=== PATIENT | female | born 1945 | race Caucasian/White ===

== ENCOUNTER 2020-06-13 10:11 | Outpatient (REF) | payer MEDICARE, SELFPAY ==
[2020-06-13 12:11] LABS: Alanine Aminotransferase 23 U/L (0-31); Albumin Level 4.3 g/dL (3.5-5.0); Alkaline Phosphatase 93 U/L (39-117); Anion Gap 13 (12-20); Aspartate Amino Transferase 21 U/L (5-31); Bilirubin Total 0.6 mg/dL (0.0-1.0); Blood Urea Nitrogen 20 mg/dL (9-16); Calcium 9.1 mg/dL (8.4-10.2); Carbon Dioxide 28 mmol/L (22-29); Chloride 103 mmol/L (96-108); Estimated Glomerular Filt Rate > 60; Glucose Random 85 mg/dL (60-115); Potassium 4.8 mmol/l (3.3-5.1); Sodium 139 mmol/L (135-145); Total Protein 7.3 g/dL (6.5-8.0)
== END 2020-06-13 10:12 | disposition home or self-care (01) ==
LOC: HO.LAB 10:11
PROVIDERS: PCP Internal Medicine; Visit Provider Internal Medicine
DX: E78.00 Pure hypercholesterolemia, unspecified (principal); M19.90 Unspecified osteoarthritis, unspecified site
CPT/HCPCS: 80053

== ENCOUNTER 2020-11-05 07:19 | Outpatient (REF) | payer MEDICARE, SELFPAY ==
[2020-11-05 10:33] LABS: MANUAL DIFF FLAG NO
[2020-11-05 10:36] LABS: Basophils Absolute Auto 0.1 X10*3/uL (0.0-0.2); Basophils Percent Auto 1.2 % (0-2); Eosinophils Absolute Auto 0.2 X10*3/uL (0.0-0.4); Eosinophils Percent Auto 3.4 % (0-4); Hematocrit 44.7 % (37-47); Hemoglobin 13.9 g/dl (12.0-16.0); Imm Gran Abs Auto 0.04 X10*3/uL (0.00-0.03); Imm Gran Pct Auto 0.6 % (0.0-0.4); Lymphocytes Absolute Auto 1.7 X10*3/uL (1.2-4.9); Lymphocytes Percent Auto 25.4 % (20-40); Mean Corpuscular HGB Conc 31.1 g/dl (31.0-35.0); Mean Corpuscular Hemoglobin 28.6 pg (27.0-33.0); Mean Platelet Volume 11.3 fL (9.4-12.3); Monocytes Absolute Auto 0.6 X10*3/uL (0.1-1.2); Monocytes Percent Auto 8.8 % (2-11); Neutrophils Absolute Auto 4.1 X10*3/uL (2.0-8.3); Neutrophils Percent Auto 60.6 % (45-73); Platelet Count 222 X10*3/uL (160-400); Red Blood Count 4.86 X10*6/uL (4.20-5.50); Red Cell Distribution Width 14.4 % (11.0-16.0); White Blood Count 6.7 X10*3/uL (4.8-10.8)
[2020-11-05 10:49] LABS: Glucose Urine UA NEG (NEG); Leukocyte Esterase Urine NEG (NEG); Nitrite Urine POS (NEG); UACC Culture Trigger YES; Urine Blood NEG (NEG); Urine Ketones NEG (NEG); Urine Protein NEG (NEG-TRACE)
[2020-11-05 10:51] LABS: Appearance Urine CLEAR; Color Urine YELLOW
[2020-11-05 11:05] LABS: RBC Urine 0 /HPF (0); Squamous Epithelial Cell Urine 1+ /LPF; UACC CULT YES
[2020-11-05 11:06] LABS: Bacteria Urine 3+ /LPF
[2020-11-05 11:38] LABS: Alanine Aminotransferase 26 U/L (0-31); Albumin Level 4.3 g/dL (3.5-5.0); Alkaline Phosphatase 85 U/L (39-117); Anion Gap 12 (12-20); Aspartate Amino Transferase 20 U/L (5-31); Bilirubin Total 0.4 mg/dL (0.0-1.0); Blood Urea Nitrogen 24 mg/dL (9-16); Carbon Dioxide 29 mmol/L (22-29); Chloride 104 mmol/L (96-108); Cholesterol 181 mg/dL; Estimated Glomerular Filt Rate > 60; Glucose Fasting 99 mg/dL (60-99); HDL Cholesterol 38 mg/dL; LDL Cholesterol Calculated 98 mg/dl; Potassium 4.4 mmol/L (3.3-5.1); Sodium 141 mmol/L (135-145); Total Protein 7.1 g/dL (6.5-8.0); Triglycerides 228 mg/dL
== END 2020-11-05 07:20 | disposition home or self-care (01) ==
LOC: HO.WFDLDS 07:19
PROVIDERS: PCP Internal Medicine; Visit Provider Internal Medicine
DX: K21.9 Gastro-esophageal reflux disease without esophagitis (principal); E78.00 Pure hypercholesterolemia, unspecified
CPT/HCPCS: 36415; 80053; 80061; 81001; 85025; 87086; 87088; 87186

== ENCOUNTER 2020-12-01 09:48 | Outpatient (REF) | payer MEDICARE, SELFPAY ==
[2020-12-01 10:43] LABS: Glucose Urine UA NEG (NEG); Leukocyte Esterase Urine 1+ (NEG); Nitrite Urine NEG (NEG); Specific Gravity - Urine <= 1.005 (1.005-1.025); UACC Culture Trigger YES; Urine Blood NEG (NEG); Urine Ketones NEG (NEG); Urine Protein NEG (NEG-TRACE)
[2020-12-01 10:44] LABS: Appearance Urine CLEAR; Color Urine YELLOW
[2020-12-01 10:53] LABS: Bacteria Urine 3+ /LPF; RBC Urine 0 /HPF (0); Squamous Epithelial Cell Urine TRACE /LPF; UACC CULT YES; WBC Urine 30-49 /HPF (0-4)
== END 2020-12-01 09:49 | disposition home or self-care (01) ==
LOC: HO.LAB 09:48
PROVIDERS: PCP Internal Medicine; Visit Provider Internal Medicine
DX: R30.0 Dysuria (principal)
CPT/HCPCS: 81001; 87086; 87088; 87186

== ENCOUNTER 2021-01-17 07:28 | Outpatient (REF) | payer MEDICARE, SELFPAY ==
--- NOTE | ~2021-01-17 | MM_ITS ---
EXAMINATION: MM SCREENING DIGITAL BREAST TOMOSYNTHESIS, BILATERAL CLINICAL INFORMATION: Screening. Asymptomatic. The lifetime risk of breast cancer based on the Tyrer-Cuzick Model is 3%. COMPARISON: Mammography: 10/26/2019, 10/18/2018, 10/15/2017 TECHNIQUE: Digital breast tomosynthesis is performed in both the craniocaudal and mediolateral oblique views along with computer-aided detection (CAD). Synthesized 2D images are generated from the tomosynthesis. FINDINGS: The breasts are heterogeneously dense, which may obscure small masses (ACR BI-RADS breast composition Category c). Parenchymal pattern is similar to prior studies. There is no developing density or interval mass or architectural abnormality. Again, there is biopsy clip marker central right breast and stable benign grouped calcifications right breast mid upper outer quadrant. Other scattered benign round and rim and dermal calcifications are again seen in both breasts. The axilla and skin contours are unremarkable. No significant changes from prior exams. MM/MM tomosynthesis screening BI IMPRESSION: No mammographic evidence of malignancy. ASSESSMENT: BI-RADS 2: Benign RECOMMENDATION: Routine annual mammography screening. This patient's information was entered into a reminder system with a target due date for their next mammogram.
== END 2021-01-17 07:29 | disposition home or self-care (01) ==
LOC: HO.MAMMO 07:28
PROVIDERS: PCP Internal Medicine; Visit Provider Internal Medicine
DX: Z12.31 Encounter for screening mammogram for malignant neoplasm of breast (principal)
CPT/HCPCS: 77063; 77067

== ENCOUNTER 2021-02-18 10:59 | Outpatient (REF) | payer MEDICARE, SELFPAY ==
[2021-02-18 14:00] LABS: Glucose Urine UA NEG (NEG); Leukocyte Esterase Urine 1+ (NEG); Nitrite Urine NEG (NEG); PH 6.5 (5.0-8.0); Specific Gravity - Urine <= 1.005 (1.005-1.025); UACC Culture Trigger YES; Urine Blood NEG (NEG); Urine Ketones NEG (NEG); Urine Protein NEG (NEG-TRACE)
[2021-02-18 14:03] LABS: Appearance Urine CLEAR; Color Urine STRAW
[2021-02-18 14:13] LABS: Bacteria Urine TRACE /LPF; RBC Urine 0 /HPF (0)
== END 2021-02-18 11:00 | disposition home or self-care (01) ==
LOC: HO.WFDLDS 10:59
PROVIDERS: PCP Internal Medicine; Visit Provider Internal Medicine
DX: R30.0 Dysuria (principal)
CPT/HCPCS: 81001; 81003; 87086; 87088; 87186

== ENCOUNTER 2021-05-09 09:48 | Outpatient (REF) | payer MEDICARE, SELFPAY ==
[2021-05-09 10:18] LABS: MANUAL DIFF FLAG NO
[2021-05-09 10:21] LABS: Basophils Absolute Auto 0.1 X10*3/uL (0.0-0.2); Basophils Percent Auto 0.9 % (0-2); Eosinophils Absolute Auto 0.2 X10*3/uL (0.0-0.4); Eosinophils Percent Auto 3.1 % (0-4); Hematocrit 42.2 % (37-47); Hemoglobin 13.8 g/dl (12.0-16.0); Imm Gran Abs Auto 0.02 X10*3/uL (0.00-0.03); Imm Gran Pct Auto 0.3 % (0.0-0.4); Lymphocytes Absolute Auto 1.7 X10*3/uL (1.2-4.9); Lymphocytes Percent Auto 24.6 % (20-40); Mean Corpuscular HGB Conc 32.7 g/dl (31.0-35.0); Mean Corpuscular Hemoglobin 29.1 pg (27.0-33.0); Mean Corpuscular Volume 88.8 fL (80-98); Mean Platelet Volume 10.4 fL (9.4-12.3); Monocytes Absolute Auto 0.6 X10*3/uL (0.1-1.2); Monocytes Percent Auto 8.2 % (2-11); Neutrophils Absolute Auto 4.2 X10*3/uL (2.0-8.3); Neutrophils Percent Auto 62.9 % (45-73); Platelet Count 262 X10*3/uL (160-400); Red Blood Count 4.75 X10*6/uL (4.20-5.50); Red Cell Distribution Width 14.1 % (11.0-16.0); White Blood Count 6.7 X10*3/uL (4.8-10.8)
[2021-05-09 10:45] LABS: Alanine Aminotransferase 25 U/L (0-31); Albumin Level 4.3 g/dL (3.5-5.0); Alkaline Phosphatase 86 U/L (39-117); Anion Gap 12 (12-20); Aspartate Amino Transferase 23 U/L (5-31); Bilirubin Total 0.4 mg/dL (0.0-1.0); Blood Urea Nitrogen 17 mg/dL (9-16); Calcium 9.6 mg/dL (8.4-10.2); Carbon Dioxide 27 mmol/L (22-29); Chloride 103 mmol/L (96-108); Estimated Glomerular Filt Rate > 60; Glucose Fasting 100 mg/dL (60-99); Potassium 4.7 mmol/L (3.3-5.1); Sodium 137 mmol/L (135-145)
[2021-05-09 11:07] LABS: Free T4 (Free Thyroxine) 0.82 ng/dL (0.71-1.85); Thyroid Stimulating Hormone 2.02 uIU/mL (0.32-4.0)
[2021-05-09 11:09] LABS: Vitamin B12 787 pg/mL (200-900)
== END 2021-05-09 09:49 | disposition home or self-care (01) ==
LOC: HO.10HDL 09:48
PROVIDERS: Visit Provider Internal Medicine
DX: R53.83 Other fatigue (principal); I10 Essential (primary) hypertension; K21.9 Gastro-esophageal reflux disease without esophagitis
CPT/HCPCS: 36415; 80053; 82607; 84439; 84443; 85025

== ENCOUNTER 2021-10-11 07:52 | Outpatient (REF) | payer MEDICARE, SELFPAY ==
[2021-10-11 10:31] LABS: MANUAL DIFF FLAG NO
[2021-10-11 11:15] LABS: Basophils Absolute Auto 0.1 X10*3/uL (0.0-0.2); Basophils Percent Auto 0.8 % (0-2); Eosinophils Absolute Auto 0.3 X10*3/uL (0.0-0.4); Eosinophils Percent Auto 4.9 % (0-4); Hematocrit 42.5 % (37.0-47.0); Hemoglobin 13.6 g/dl (12.0-16.0); Imm Gran Abs Auto 0.04 X10*3/uL (0.00-0.03); Imm Gran Pct Auto 0.7 % (0.0-0.4); Lymphocytes Absolute Auto 1.6 X10*3/uL (1.2-4.9); Lymphocytes Percent Auto 26.5 % (20-40); Mean Corpuscular Hemoglobin 29.1 pg (27.0-33.0); Mean Corpuscular Volume 90.8 fL (80.0-98.0); Mean Platelet Volume 11.1 fL (9.4-12.3); Monocytes Absolute Auto 0.6 X10*3/uL (0.1-1.2); Monocytes Percent Auto 10.4 % (2-11); Neutrophils Absolute Auto 3.5 x10*3/uL (2.0-8.3); Neutrophils Percent Auto 56.7 % (45-73); Platelet Count 252 X10*3/uL (160-400); Red Blood Count 4.68 X10*6/uL (4.20-5.50); Red Cell Distribution Width 14.4 % (11.0-16.0); White Blood Count 6.1 X10*3/uL (4.8-10.8)
[2021-10-11 11:30] LABS: Appearance Urine CLEAR; Color Urine YELLOW; Glucose Urine UA NEG (NEG); Leukocyte Esterase Urine 2+ (NEG); Nitrite Urine NEG (NEG); Specific Gravity - Urine 1.015 (1.005-1.025); Urine Blood NEG (NEG); Urine Ketones NEG (NEG); Urine Protein NEG (NEG-TRACE)
[2021-10-11 11:33] LABS: Alanine Aminotransferase 22 U/L (0-31); Albumin Level 4.2 g/dL (3.5-5.0); Alkaline Phosphatase 81 U/L (39-117); Anion Gap 12 (12-20); Aspartate Amino Transferase 22 U/L (5-31); Bilirubin Total 0.5 mg/dL (0.0-1.0); Blood Urea Nitrogen 21 mg/dL (9-16); Calcium 9.4 mg/dL (8.4-10.2); Carbon Dioxide 27 mmol/L (22-29); Chloride 102 mmol/L (96-108); Cholesterol 174 mg/dL; Estimated Glomerular Filt Rate > 60; Glucose Fasting 97 mg/dL (60-99); HDL Cholesterol 39 mg/dL; LDL Cholesterol Calculated 101 mg/dl; Potassium 4.2 mmol/L (3.3-5.1); Sodium 137 mmol/L (135-145); Total Protein 7.3 g/dL (6.5-8.0); Triglycerides 170 mg/dL
[2021-10-11 11:56] LABS: RBC Urine 0 /HPF (0); Squamous Epithelial Cell Urine 1+ /LPF
== END 2021-10-11 07:53 | disposition home or self-care (01) ==
LOC: HO.WFDLDS 07:52
PROVIDERS: Visit Provider Internal Medicine
DX: Z00.00 Encounter for general adult medical examination without abnormal findings (principal); E78.00 Pure hypercholesterolemia, unspecified
CPT/HCPCS: 36415; 80053; 80061; 81001; 85025

== ENCOUNTER 2021-11-16 07:14 | Outpatient (REF) | payer MEDICARE, SELFPAY ==
--- NOTE | ~2021-11-16 | XR_ITS ---
EXAMINATION: XR CLAVICLE, RIGHT CLINICAL INFORMATION: Prominent right clavicle. Rule out osteoarthritis. COMPARISON: None TECHNIQUE: 2 of the right clavicle. FINDINGS: Bone alignment is normal. No fracture or dislocation is seen. There is arthritis at the right acromioclavicular joint with bony osteophytes. There is adjacent soft tissue swelling. XR/XR clavicle RT IMPRESSION: Arthritis at the right acromioclavicular joint.
== END 2021-11-16 07:15 | disposition home or self-care (01) ==
LOC: HO.XRAY 07:14
PROVIDERS: PCP Internal Medicine; Visit Provider Internal Medicine
DX: M13.811 Other specified arthritis, right shoulder (principal)
CPT/HCPCS: 73000

== ENCOUNTER 2021-12-12 11:41 | Outpatient (REF) | payer MEDICARE, SELFPAY ==
--- NOTE | ~2021-12-12 | XR_ITS ---
EXAMINATION: XR SINUSES CLINICAL INFORMATION: Congestion COMPARISON: None TECHNIQUE: 3 views of the sinuses were obtained. FINDINGS: Paranasal sinuses appear clear without air-fluid levels or soft tissue opacification. Bony structures are normal. XR/XR sinus min 3V IMPRESSION: Unremarkable examination.
== END 2021-12-12 11:42 | disposition home or self-care (01) ==
LOC: HO.XRAY 11:41
PROVIDERS: PCP Internal Medicine; Visit Provider Allergy & Immunology
DX: R09.81 Nasal congestion (principal)
CPT/HCPCS: 70220

== ENCOUNTER 2022-01-30 10:16 | Outpatient (REF) | payer MEDICARE, SELFPAY ==
--- NOTE | ~2022-01-30 | MM_ITS ---
EXAMINATION: MM SCREENING DIGITAL BREAST TOMOSYNTHESIS, BILATERAL CLINICAL INFORMATION: Screening. Asymptomatic. The lifetime risk of breast cancer based on the Tyrer-Cuzick Model is 3%. COMPARISON: Mammography: 01/17/2021, 10/26/2019, 10/18/2018, 10/15/2017, 09/23/2016 TECHNIQUE: Digital breast tomosynthesis is performed in both the craniocaudal and mediolateral oblique views along with computer-aided detection (CAD). Synthesized 2D images are generated from the tomosynthesis. FINDINGS: The breasts are heterogeneously dense, which may obscure small masses (ACR BI-RADS breast composition Category c). Parenchymal pattern is similar to prior studies and there is no developing density or architectural abnormality. There is no significant mass or interval abnormal calcifications. Again, there is biopsy clip marker central posterior right breast. Grouped coarse probable fibroadenomatous calcifications are again noted posterior upper outer right breast without significant change since 2019. There are other bilateral scattered benign round and dermal calcifications. The axilla and skin contours are unremarkable. MM/MM tomosynthesis screening BI IMPRESSION: No significant changes from prior exams. ASSESSMENT: BI-RADS 2: Benign RECOMMENDATION: Routine annual mammography screening. This patient's information was entered into a reminder system with a target due date for their next mammogram.
== END 2022-01-30 10:17 | disposition home or self-care (01) ==
LOC: HO.MAMMO 10:16
PROVIDERS: PCP Internal Medicine; Visit Provider Internal Medicine
DX: Z12.31 Encounter for screening mammogram for malignant neoplasm of breast (principal)
CPT/HCPCS: 77063; 77067

== ENCOUNTER 2022-04-02 14:53 | Outpatient (REF) | payer MEDICARE, SELFPAY ==
[2022-04-02 15:52] LABS: Estimated Average Glucose 105 mg/dL; Hemoglobin A1c % 5.3 %
[2022-04-02 16:00] LABS: Anion Gap 14 (12-20); Blood Urea Nitrogen 26 mg/dL (9-16); Calcium 9.1 mg/dL (8.4-10.2); Carbon Dioxide 25 mmol/L (22-29); Chloride 99 mmol/L (96-108); Estimated Glomerular Filt Rate 60; Glucose Random 109 mg/dL (60-115); Potassium 4.3 mmol/L (3.3-5.1); Sodium 134 mmol/L (135-145)
== END 2022-04-02 14:54 | disposition home or self-care (01) ==
LOC: HO.LAB 14:53
PROVIDERS: PCP Internal Medicine; Visit Provider Internal Medicine
DX: R73.03 Prediabetes (principal)
CPT/HCPCS: 36415; 80048; 83036

== ENCOUNTER 2022-11-03 07:15 | Outpatient (REF) | payer MEDICARE, SELFPAY ==
[2022-11-03 11:23] LABS: MANUAL DIFF FLAG NO
[2022-11-03 11:30] LABS: Basophils Absolute Auto 0.1 X10*3/uL (0.0-0.2); Basophils Percent Auto 0.9 % (0-2); Eosinophils Absolute Auto 0.3 X10*3/uL (0.0-0.4); Eosinophils Percent Auto 3.9 % (0-4); Hematocrit 43.3 % (37.0-47.0); Imm Gran Abs Auto 0.03 X10*3/uL (0.00-0.03); Imm Gran Pct Auto 0.5 % (0.0-0.4); Lymphocytes Absolute Auto 1.9 X10*3/uL (1.2-4.9); Lymphocytes Percent Auto 29.2 % (20-40); Mean Corpuscular HGB Conc 32.3 g/dl (31.0-35.0); Mean Corpuscular Hemoglobin 29.6 pg (27.0-33.0); Mean Corpuscular Volume 91.5 fL (80.0-98.0); Mean Platelet Volume 11.2 fL (9.4-12.3); Monocytes Absolute Auto 0.6 X10*3/uL (0.1-1.2); Monocytes Percent Auto 9.4 % (2-11); Neutrophils Absolute Auto 3.7 x10*3/uL (2.0-8.3); Neutrophils Percent Auto 56.1 % (45-73); Platelet Count 236 X10*3/uL (160-400); Red Blood Count 4.73 X10*6/uL (4.20-5.50); Red Cell Distribution Width 14.2 % (11.0-16.0); White Blood Count 6.6 X10*3/uL (4.8-10.8)
[2022-11-03 12:03] LABS: Alanine Aminotransferase 29 U/L (0-31); Albumin Level 4.1 g/dL (3.5-5.0); Alkaline Phosphatase 75 U/L (39-117); Anion Gap 14 (12-20); Aspartate Amino Transferase 23 U/L (5-31); Bilirubin Total 0.6 mg/dL (0.0-1.0); Blood Urea Nitrogen 25 mg/dL (9-16); Calcium 9.4 mg/dL (8.4-10.2); Carbon Dioxide 25 mmol/L (22-29); Chloride 104 mmol/L (96-108); Cholesterol 178 mg/dL; Estimated Glomerular Filt Rate > 60; Glucose Fasting 96 mg/dL (60-99); HDL Cholesterol 41 mg/dL; LDL Cholesterol Calculated 111 mg/dl; Potassium 4.3 mmol/L (3.3-5.1); Sodium 139 mmol/L (135-145); Total Protein 6.6 g/dL (6.5-8.0); Triglycerides 133 mg/dL
== END 2022-11-03 07:16 | disposition home or self-care (01) ==
LOC: HO.WFDLDS 07:15
PROVIDERS: Visit Provider Internal Medicine
DX: Z00.00 Encounter for general adult medical examination without abnormal findings (principal); E78.00 Pure hypercholesterolemia, unspecified
CPT/HCPCS: 36415; 80053; 80061; 85025

== ENCOUNTER 2023-02-05 10:23 | Outpatient (REF) | payer MEDICARE, SELFPAY ==
--- NOTE | ~2023-02-05 | MM_ITS ---
EXAMINATION: MM SCREENING DIGITAL BREAST TOMOSYNTHESIS, BILATERAL CLINICAL INFORMATION: Screening. Asymptomatic. The lifetime risk of breast cancer based on the Tyrer-Cuzick Model is under 5%. COMPARISON: Multiple prior mammography exams including most recent 02/17/2022. TECHNIQUE: Digital breast tomosynthesis is performed in both the craniocaudal and mediolateral oblique views along with computer-aided detection (CAD). Synthesized 2D images are generated from the tomosynthesis. FINDINGS: The breasts are heterogeneously dense, which may obscure small masses (ACR BI-RADS breast composition Category c). There are scattered bilateral benign round and rim calcifications. Grouped benign calcifications again seen mid upper outer right breast likely fibroadenomatous change. There is a biopsy clip marker posterior central right breast. The axilla and skin contours are unremarkable. Left breast parenchymal pattern is similar to prior exams and there is no developing density or significant mass or architectural abnormality. Right breast has subtle regional increased parenchymal density anterior periareolar 12:00 area likely incompletely compressed glandular tissue. No architectural abnormality. Patient will be recalled for additional imaging to fully characterize. MM/MM tomosynthesis screening BI IMPRESSION: Right: -Subtle regional increased parenchymal attenuation anterior periareolar area, likely incompletely compressed glandular tissue. Left: -No mammographic evidence of malignancy. ASSESSMENT: BI-RADS 0: Incomplete - Need Additional Imaging Evaluation RECOMMENDATION: 1. Additional views right breast (spot CC, spot MLO, spot ML). 2. Targeted ultrasound if warranted after review of the additional views. 3. Radiology department staff will contact the patient for additional imaging. This patient's information was entered into a reminder system with a target due date for their next mammogram.
== END 2023-02-05 10:24 | disposition home or self-care (01) ==
LOC: HO.MAMMO 10:23
PROVIDERS: PCP Internal Medicine; Visit Provider Internal Medicine
DX: Z12.31 Encounter for screening mammogram for malignant neoplasm of breast (principal)
CPT/HCPCS: 77063; 77067

== ENCOUNTER 2023-07-02 08:40 | Outpatient (REF) | payer MEDICARE, SELFPAY ==
--- NOTE | ~2023-07-02 | MM_ITS ---
EXAMINATION: BONE DENSITOMETRY CLINICAL INDICATION: Postmenopausal. COMPARISON: Previous BD dated 05/11/2014 and baseline BD dated 04/18/2010. TECHNIQUE: Using a [employer] DXA System (software version: 13.1) manufactured by [employer], dual-energy x-ray absorptiometry was performed of the lumbar spine and left hip. The images are of good technical quality. Summary results are attached. FINDINGS: LEFT FEMUR, NECK: Current: BMD 0.921 g/cm2, Z-score 0.9, T-score -0.8, normal. Prior: BMD 0.976 g/cm2. Baseline: BMD 1.019 g/cm2. LEFT FEMUR, TOTAL: Current: BMD 0.900 g/cm2, Z-score 0.7, T-score -0.9, normal, 10.9% decrease from previous, 16.9% decrease from baseline (<5% change is not significant). Prior: BMD 1.010 g/cm2. Baseline: BMD 1.083 g/cm2. AP SPINE L1-L3 (excluding L4): The data of L1-L4 has been changed to exclude the L4 vertebral body, because degenerative sclerosis at this level may cause overestimation of lumbar spine density. Current: BMD 1.208 g/cm2, Z-score 1.7, T-score 0.3, normal, 5.6% increase from previous, 14.6% increase from baseline (<5% change is not significant). Prior: BMD 1.144 g/cm2. Baseline: BMD 1.054 g/cm2. IDENTIFIED RISK FACTORS: Height loss, menopause. HISTORY OF FRACTURE: None listed. MEDICATIONS: Calcium supplements or multivitamin, vitamin D. MM/XR DEXA axial skeleton IMPRESSION: 1. DIAGNOSIS: Normal bone density based on the lowest T-score value of 0.9 in the total femur applying World Health Organization criteria. 2. 10-YEAR FRACTURE RISK PREDICTION, FRAX: According to the guidelines, FRAX calculation should only be performed on patients in the osteopenia bone density category. Therefore, FRAX was not performed on this patient. 3. Treatment Recommendations: NOF guidelines recommend consideration for treatment in postmenopausal women and men age 50 and older presenting with the following: -A hip or vertebral (clinical or morphometric) fracture. -T-score less than or equal to -2.5 at the femoral neck or spine after appropriate evaluation to exclude secondary causes. -Low bone mass at the hip or spine and a 10-year fracture probability by FRAX of greater than or equal to 3% for hip fracture or greater than or equal to 20% for major osteoporotic fracture based on the [place] adapted WHO algorithm. 4. Other Recommendations: All treatment decisions require clinical judgment and consideration of individual patient factors, including patient preferences, comorbidities, previous drug use, risk factors not captured in the FRAX model (e.g. frailty, falls, vitamin D deficiency, increased bone turnover, interval significant decline in bone density) and possible under or overestimation of fracture risk by FRAX. FUTURE SCAN RECOMMENDATION: People with diagnosed cases of osteoporosis or at high risk for fracture should have regular bone mineral density tests. For patients eligible for Medicare, routine testing is allowed once every 2 years. The testing frequency can be increased to one year for patients who have rapidly progressing disease, those who are receiving or discontinuing medical therapy to restore bone mass, or have additional risk factors.
== END 2023-07-02 08:41 | disposition home or self-care (01) ==
LOC: HO.MAMMO 08:40
PROVIDERS: PCP Internal Medicine; Visit Provider Internal Medicine
DX: Z13.820 Encounter for screening for osteoporosis (principal); Z78.0 Asymptomatic menopausal state
CPT/HCPCS: 77080

== ENCOUNTER 2023-11-17 07:20 | Outpatient (REF) | payer MEDICARE, SELFPAY ==
[2023-11-17 11:19] LABS: MANUAL DIFF FLAG NO
[2023-11-17 11:33] LABS: Basophils Absolute Auto 0.1 X10*3/uL (0.0-0.2); Basophils Percent Auto 0.7 % (0-2); Eosinophils Absolute Auto 0.2 X10*3/uL (0.0-0.4); Eosinophils Percent Auto 2.9 % (0-4); Hematocrit 43.4 % (37.0-47.0); Hemoglobin 13.9 g/dl (12.0-16.0); Imm Gran Abs Auto 0.03 X10*3/uL (0.00-0.03); Imm Gran Pct Auto 0.4 % (0.0-0.4); Lymphocytes Absolute Auto 1.3 X10*3/uL (1.2-4.9); Lymphocytes Percent Auto 18.4 % (20-40); Mean Corpuscular Hemoglobin 28.8 pg (27.0-33.0); Mean Platelet Volume 11.1 fL (9.4-12.3); Monocytes Absolute Auto 0.6 X10*3/uL (0.1-1.2); Monocytes Percent Auto 8.9 % (2-11); Neutrophils Absolute Auto 4.8 x10*3/uL (2.0-8.3); Neutrophils Percent Auto 68.7 % (45-73); Platelet Count 238 X10*3/uL (160-400); Red Blood Count 4.82 X10*6/uL (4.20-5.50)
[2023-11-17 12:32] LABS: Alanine Aminotransferase 17 U/L (0-31); Albumin Level 4.1 g/dL (3.5-5.0); Alkaline Phosphatase 84 U/L (39-117); Anion Gap 13 (12-20); Aspartate Amino Transferase 18 U/L (5-31); Bilirubin Total 0.4 mg/dL (0.0-1.0); Blood Urea Nitrogen 21 mg/dL (9-16); Calcium 9.1 mg/dL (8.4-10.2); Carbon Dioxide 26 mmol/L (22-29); Chloride 101 mmol/L (96-108); Cholesterol 144 mg/dL (<200); Estimated Glomerular Filt Rate > 60; Glucose Fasting 85 mg/dL (60-99); HDL Cholesterol 42 mg/dL (>40); LDL Cholesterol Calculated 80 mg/dL (<100); Potassium 4.4 mmol/L (3.3-5.1); Sodium 136 mmol/L (135-145); Total Protein 7.3 g/dL (6.5-8.0); Triglycerides 112 mg/dL (<150)
== END 2023-11-17 07:21 | disposition home or self-care (01) ==
LOC: HO.WFDLDS 07:20
PROVIDERS: Visit Provider Internal Medicine
DX: Z00.00 Encounter for general adult medical examination without abnormal findings (principal); E78.00 Pure hypercholesterolemia, unspecified; K21.9 Gastro-esophageal reflux disease without esophagitis
CPT/HCPCS: 36415; 80053; 80061; 85025

== ENCOUNTER → 2024-02-11 08:00 | Outpatient (BNV) | payer MEDICARE, SELFPAY | PROVIDERS: PCP Internal Medicine; Visit Provider Radiology Diagnostic Radiology | DX: Z12.31 Encounter for screening mammogram for malignant neoplasm of breast (principal) | CPT/HCPCS: 77063; 77067 ==

== ENCOUNTER 2024-02-11 08:01 | Outpatient (REF) | payer MEDICARE, SELFPAY ==
--- NOTE | ~2024-02-11 | MM_ITS ---
EXAMINATION: MM DIAGNOSTIC DIGITAL BREAST TOMOSYNTHESIS, BILATERAL CLINICAL INFORMATION: Patient here for bilateral screening. Patient did not return for a call back from 02/05/2023 requesting diagnostic views of the right breast. COMPARISON: Mammography: 02/05/2023, 01/30/2022, 01/17/2021, 10/26/2019, 10/18/2018, 10/15/2017, 09/23/2016. TECHNIQUE: Digital breast tomosynthesis is performed in both the craniocaudal and mediolateral oblique views along with computer-aided detection (CAD). Synthesized 2D images are generated from the tomosynthesis. FINDINGS: The breasts are heterogeneously dense, which may obscure small masses (ACR BI-RADS breast composition Category c). Redemonstration of bilateral skin and benign type calcifications. Stable group of benign calcifications upper outer right breast mid to posterior one third. Post benign biopsy clip is present in the central right breast along the nipple line, posterior one third. Area of previous concern in the retroareolar right breast is again noted, similar on the cc view, however not persisting on today's examination on the MLO view. Tomographic images demonstrate this has the appearance of overlapping normal fibroglandular tissues. In retrospect, this area is unchanged dating back to 2017. This area is benign and further follow-up is not warranted. There is no suspicious mass, suspicious microcalcifications, or developing architectural distortion in either breast. The parenchymal pattern is unchanged from prior exams. No skin or axillary abnormalities. MM/MM tomosynthesis diagnostic BI IMPRESSION: -No findings suspicious for malignancy in either breast. There has been no interval change in the study. -Stable benign findings as described. ASSESSMENT: BI-RADS BI-RADS 2 - Benign Findings RECOMMENDATION: 1 year F/U Results were provided to the patient at time of visit by the technologist. This patient's information was entered into a reminder system with a target due date for their next mammogram.
== END 2024-02-11 08:02 | disposition home or self-care (01) ==
LOC: HO.MAMMO 08:01
PROVIDERS: PCP Internal Medicine; Visit Provider Internal Medicine
DX: R92.2 Inconclusive mammogram (principal)
CPT/HCPCS: 77062; 77066

== ENCOUNTER 2024-10-31 08:02 | Outpatient (REF) | payer MEDICARE, SELFPAY ==
--- OUTSIDE RECORDS SUMMARY | 2024-10-31 08:10 | XMS_ITS ---
Author Organization [facility] Address [address] [place] [address] Care Team Providers Care Set Builder Name Role Phone Jose LEE, Vincent Primary Care Provider Unavaila Polo Parker Unavailable [phone] Acharya Encounters Encounter Location Date Provider Diagnosis [address] [address] 01/21/2024 Polo Banda Plan Of Treatment Next Appt Details Provider Name:Polo Banda , 11/14/2024 11:00:00 AM, [address] [place] [address], [phone], Progress Notes * Lili TINSLEYite PDOB:[birth year] (79 yo F)Acc No.[id number]:01/21/2024 Progress Note Patient:?Roselia TINSLEY Provider:?Polo Banda DPM :1945???Age:78 Y???Sex:Female D ate:01/21/2024 Address:[address] [place] [phone] Pcp:Vincent Garcia MD Subjective: * Chief Complaints: * ???1. Dr. Acharya. * Medical History:? Objective: * Vitals:? Assessment: Plan: * Treatment: * Images: * The named appointment provid er may or may not be the originator of this progress note, and it is not deemed complete until electronically signed by the appointment provider. Sign off status: Pending * Provider:Michael Banda DPM Date:?2023 Generated for Tisha head/Jag/Nancy on:?10/31/2024 08:09 AM EST
--- OUTSIDE RECORDS SUMMARY | 2024-10-31 08:10 | XMS_ITS | Encounter Summary ---
Author Organization [facility] Address [address] [place] [address] Care Team Providers Care Mushroom Cultivator Name Role Phone Vincent Garcia MD Primary Care Provider [phone] Encounter Details Date Type Department Care Team (Late st Contact Info) Description 08/16/2024 Lab Requisition [facility] - Main Lab [address] [facility] [place] [address] Tere Ambriz NP [address] [facility] [address] [place] [address] Dysuria Social History Tobacco Use Types Packs/Day Years Used Date Smoking Tobacco: Never Smokeless Tobacco: Never Comments Unknown Sex and Gender Information Value Date Recorded Sex Assigned at Not on file Legal Sex Female 1:01 AM EST Gender Identity Not on file Sexual Orientation Not on file documented as of this encounter Plan of Treatment Not on file documented as of this encounter Procedures Procedure Name Priority Date/Time Associated Diagnosis Comments BACTERIAL IDENTIFICATION AND SUSCEPTIBILITY, AEROBIC Routine 08/15/2024 12:00 AM EST Dysuria documented in this encounter Results * (ABNORMAL) Bacterial identification and susceptibility, aerobic (08/15/2024 12:00 AM EST) Culture, Bacterial ID and Sensitivity Enterobacter cloacae complex(A) SARA 08/17/2024 10:29 AM EST [facility] Comment: This is an edited result. Previous organism was Gram negative bacilli on 08/16/2024 at 1032 EST. Culture, Bacterial ID and Sensitivity Corynebacterium species(A) SARA 08/17/2024 10:29 AM EST [facility] Comment: The organism value for this result has been updated. These results have been appended to the previously preliminary verified report. Other Urine specimen from urethra / Unknown 08/15/2024 08/16/2024 9:33 AM EST Narrative Organism Antibiotic Method Susceptibility Enterobacter cloacae complex Amoxicillin/Clavulanate SARA >=32 ug/ml: Resistant Enterobacter cloacae complex Cefoxitin SARA >=64 ug/ml: Resistant Enterobacter cloacae complex Ceftazidime SARA <=0.5 ug/ml: Susceptible Enterobacter cloacae complex Cefepime SARA <=0.12 ug/ml: Susceptible Enterobacter cloacae complex Meropenem SARA <=0.25 ug/ml: Susceptible Enterobacter cloacae complex Amikacin SARA <=1 ug/ml: Susceptible Enterobacter cloacae complex Gentamicin SARA <=1 ug/ml: Susceptible Enterobacter cloacae complex Ciprofloxacin SARA <=0.06 ug/ml: Susceptible Enterobacter cloacae complex Levofloxacin SARA <=0.12 ug/ml: Susceptible Enterobacter cloacae complex Nitrofurantoin SARA 64 ug/ml: Intermediate Enterobacter cloacae complex Trimethoprim/Sulfamethoxazo le SARA <=20 ug/ml: Susceptible us Tere Ambriz [facility] MICROBIOLOGY - GENERA L ORDERABLES Final Result [facility] [address] [place] [address], documented in this encounter Visit Diagnoses Diagnosis Dysuria documented in this encounter Care Teams Mushroom Cultivator Relationship Specialty Start Date End Date Vincent Garcia MD [address] [place] [address] Dr Sweetie [place] PCP - General Internal Medicine 12/13/18 documented as of this encounter
--- OUTSIDE RECORDS SUMMARY | 2024-10-31 08:10 | XMS_ITS | Clinical Summary ---
Author Organization [address] [facility] Address [address] [place] [address] Phone Care Team Providers Care Contract Technician Name Role Phone Vincent Garcia MD Primary Care Provider [phone] Encounters Date Type Department Care Team Description 09/02/2024 Lab Requisition [facility] [address] [place] [phone] Rashida Velez MD Dysuria 08/16/2024 Lab Requisition [facility] [address] [place] [phone] Tere Ambriz NP Dysuria from Last 3 Months Surgical History Surgery Date Site/Laterality Comments TOTAL KNEE ARTHROPLASTY PROCEDURE: IA ARTHRP KNE CONDYLE&PLATU MEDIAL&LAT COMPARTMENTS; COMMENT: both knees BLADDER SURGERY PROCEDURE: HISTORICAL BLADDER SURGERY CHOLECYSTECTOMY PROCEDURE: LAPAROSCOPY, CHOLECYSTECTOMY COLONOSCOPY PROCEDURE: HISTORICAL COLONOSCOPY CATARACT EXTRACTION PROCEDURE: HISTORICAL CATARACT REMOVAL Social History Tobacco Use Types Packs/Day Years Used Date Smoking Tobacco: Never Smokeless Tobacco: Never Comments Unknown Sex and Gender Information Value Date Recorded Sex Assigned at Not on file Legal Sex Female 1:01 AM EST Gender Identity Not on file Sexual Orientation Not on file Obstetrics History Plan of Treatment Health Maintenance Due Date Last Done Comments DTaP,Tdap,and Td Vaccines (1 - Tdap) 1966 Pneumococcal Vaccine: 50+ Ye ars (1 of 1 - PCV) 1997 Zoster Vaccines (1 of 2) 1997 RSV Immunization Patients 60 + Years Old (1 - 1-dose 75+ series) 2022 Cholesterol Screening (Lipid Panel) 08/03/2022 Depression Screening 08/03/2022 Falls Risk Assessment 08/03/2022 Hepatitis C Screening 08/03/2022 Medicare Annual Wellness Visit 08/03/2022 Osteoporosis Screening (Bone Density Screening) 08/03/2022 Social Influencers of Health Screening 08/03/2022 COVID-19 Vaccine (2023-2 5 season) 2024 Influenza Vaccine (#1) 2024 HIB Vaccines Aged Out No longer eligi ble based on patient's age to complete this topic HPV Vaccines Aged Out No longer eligi ble based on patient's age to complete this topic Hepatitis A Vaccines Aged Out No long er eligible based on patient's age to complete this topic Hepatitis B Vaccines Aged Out No long er eligible based on patient's age to complete this topic IPV Vaccines Aged Out No longer eligi ble based on patient's age to complete this topic MMR Vaccines Aged Out No longer eligi ble based on patient's age to complete this topic Meningococcal ACWY Vaccine Aged Out N o longer eligible based on patient's age to complete this topic Meningococcal B Vacine Aged Out No lo nger eligible based on patient's age to complete this topic RSV Immunization Patients Un jeri 20 months Aged Out No longer eligible b ased on patient's age to complete this topic Varicella Vaccines Aged Out No longer eligible based on patient's age to complete this topic Procedures Procedure Name Priority Date/Time Associated Diagnosis Comments BACTERIAL IDENTIFICATION AND SUSCEPTIBILITY, AEROBIC Routine 09/01/2024 12:00 AM EST Dysuria BACTERIAL IDENTIFICATION AND SUSCEPTIBILITY, AEROBIC Routine 08/15/2024 12:00 AM EST Dysuria from Last 3 Months Results * (ABNORMAL) Bacterial identification and susceptibility, aerobic (09/01/2024 12:00 AM EST) Only the most recent of2 resultswithin the time period is included. Culture, Bacterial ID and Sensitivity Enterobacter cloacae complex(A) SARA 09/03/2024 8:28 AM EST [facility] Comment: This is an edited result. Previous organism was Gram negative bacilli on 09/02/2024 at 1117 EST. Other Urine specimen from urethra / Unknown 09/01/2024 09/02/2024 10:55 AM EST Narrative Organism Antibiotic Method Susceptibility Enterobacter cloacae complex Amoxicillin/Clavulanate SARA >=32 ug/ml: Resistant Enterobacter cloacae complex Cefoxitin SARA >=64 ug/ml: Resistant Enterobacter cloacae complex Ceftazidime SARA <=0.5 ug/ml: Susceptible Enterobacter cloacae complex Cefepime SARA <=0.12 ug/ml: Susceptible Enterobacter cloacae complex Meropenem SARA <=0.25 ug/ml: Susceptible Enterobacter cloacae complex Amikacin SARA 2 ug/ml: Susceptible Enterobacter cloacae complex Gentamicin SARA <=1 ug/ml: Susceptible Enterobacter cloacae complex Ciprofloxacin SARA <=0.06 ug/ml: Susceptible Enterobacter cloacae complex Levofloxacin SARA <=0.12 ug/ml: Susceptible Enterobacter cloacae complex Nitrofurantoin SARA 32 ug/ml: Susceptible Enterobacter cloacae complex Trimethoprim/Sulfamethoxazo le SARA >=320 ug/ml: Resistant Rashida Velez MD LAB MICROBIOLOGY - G ENERAL ORDERABLES Final Result [facility] [address] [place] [address], [place] [phone] from Last 3 Months Insurance [facility] MEDIC[facility] Care Teams Contract Technician Relationship Specialty Start Date End Date Vincent Garcia MD [address] [place] [address] Dr Pitt [place] PCP - General Internal Medicine 12/13/18
--- OUTSIDE RECORDS SUMMARY | 2024-10-31 08:10 | XMS_ITS ---
Author Organization [facility] [place] Address [address] [place] [address] Care Team Providers Care Advertising Supervisor Name Role Phone Vincent Garcia MD Primary Care Provider Polo Schaffer Unavailable [phone] Allergies Allergen (clinical drug ingredient) Drug/Non Drug Allergy documented on EMR Reaction Allergy Type Onset Date Status anesthesia (uncoded) Unknown Allergy Active meperidine Demerol nausea Drug Allergy Active Seasonale Unknown Drug Allergy Active morphine Morphine nausea Drug Allergy Active REASON FOR VISIT At Risk Footcare, Painful Nail(s) aggrevated by shoes and causing difficulty standing/walking. Medications Medication SIG (Take, Route, Frequency, Duration) Notes Start Date End Date Status Bioflex Not-Taking Aspirin 81 MG 1 tablet Orally Once a day Not-Taking Trimethoprim Not-Raheem ing Keflex Active Omeprazole Active PriLOSEC daily Active Pravastatin Sodium 40 MG 1 tablet Orally Once a day Active ASO Ankle/Foot Stablizing AFO As directed Wear Daily for as needed 11/29/2018 Not-Taking oxyBUTYnin Not-Takin g Cefpodoxime Proxetil Not-Taking diazePAM 2 MG (Schedule IV Drug) T K 1 T PO QD PRN Oral for 30 PRN Active Azelastine HCl Activ e Maia Active Gabapentin Active Flonase Active Biotin Active Trospium Chloride Ac tive Social History Tobacco Use: Social History Observation Description Date Details (start date - stop date) Never Smoker NA - NA Tobacco Use/Smoking Question Answer Notes Are you a: nonsmoker Additional Findings: Tobacco Non-User Current no n-smoker Alcohol Screen Question Answer Notes Did you have a drink contain ing alcohol in the past year? Yes How often did you have a dri nk containing alcohol in the past year? Monthly or less (1 point) How many drinks did you have on a typical day when you were drinking in the past year? 1 or 2 drinks (0 point) How often did you have 6 or more drinks on one occasion in the past year? Never (0 point) Points 1 Interpretation Negative Tobacco use other than smoking: Question Answer Notes Are you an other tobacco user? No Vital Signs Height 5ft 2in in 03/28/2024 Weight 167 lbs 03/28/2024 BMI 30.54 kg/m2 03/28/2024 Procedures Procedure Date Ordered Date Performed Result Body Sit e 18299-LXBRQVS NAIL, 6 OR MORE 03/28/2024 N/A 50803-PYEI SKIN LESIONS, 2 TO 4 03/28/2024 N/A Encounters Encounter Location Date Provider Diagnosis [facility] [place] [address] [phone] 03/28/2024 Polo Banda Atherosclerosis of [place] artery of both lower extremities, with unspecified presence of clinical manifestation I70.203 ; Tinea unguium B35.1 ; Pain in right toe(s) M79.674 and Pain in left toe(s) M79.675 Assessments Encounter Date Diagnosis (ICD Code) Assessment Notes Treatment Notes Treatment Clinical Notes Section Notes 03/28/2024 Atherosclerosis of [place] artery of both lower extremities, with unspecified presence of clinical manifestation (ICD-10 - I70.203) 03/28/2024 Tinea unguium (ICD-10 - B35.1) 03/28/2024 Pain in right toe(s) (ICD-10 - M79.674) 03/28/2024 Pain in left toe(s) (ICD-10 - M79.675) Plan Of Treatment Pending Test Test Name Order Date 54352-HJFXEQE NAIL, 6 OR MORE 03/28/2024 51834-AZST SKIN LESIONS, 2 TO 4 03/28/20 24 Next Appt Details Follow Up: prn, Reason: Provider Name:Polo Banda , 11/14/2024 11:00:00 AM, [address] [facility], [place] [address], [place], [address], Procedure Notes * Category Sub-Category Detail Notes Debride Nail 6-10 Nail debridement Nail debridem ent performed extensively to reduce/remove overall nail length, girth, thickness, subungual debris, and necrotic tissue, by manual and electrical means through the use of a nail nipper and/or dremel, to more viable healthy nail plate or bed tissue 1-5. Silver nitrate used for any petechial bleeding as necessary. Patient chooses, no pharmaceutical tx (41367) Keratoma Treatment Parring or Cutting o f Benign Hyperkeratotic Lesion(s) 79539 (2-4 Lesions) - The Benign hyperkeratotic lesions, as described above were pared, and/or cut utilizing a sterile #15 blade, tissue nippers, and/or dremel, Q8 Progress Notes * Roselia TINSLEY PDOB:[birth year] (78 yo F)Acc No.[id number]:03/28/2024 Progress Note Patient:?Roselia Tinsley P Provider:?Polo Banda DPM :1945???Age:78 Y???Sex:Female D ate:03/28/2024 Address:[address] [place] [phone] Pcp:Vincent Garcia MD Subjective: * Chief Complaints: * ???At Risk FootcarePainful N ail(s) aggrevated by shoes and causing difficulty standing/walking. * HPI: ???At Risk footcare:?Pt States Last PCP Visit:?Date?11/10/2023 * ROS:?General/Constitutional:?Nausea?denies.?Vomiting?denies.?Hunger Thirst?denies.?Loss appetite?denies.?Chills?denies.?Fatigue?denies.?Fever?denies.?Night Sweats?denies.?Unexplained weight loss?denies.?Unexplained weight gain?denies.?HEENTM:?Dentures?denies.?Dizziness?denies.?Glasses/contacts?admits.?Retinopathy?de nies.?Blurred/double vision?denies.?TMJ?denies.?Discharge/drainage?denies.?Implants?denies.?Sore throat?denies.?Dental implants?denies.?Hard of hearing ?denies.?Difficulty chewing/swallowing/speaking?denies.?Nose bleeds?denies.?Sore mouth?denies.?Respiratory:?On Oxygen?denies.?Pneumonia/pleurisy?denies.?Bronchitis?denies.?Emphysema?denies.?C oughing?denies.?Cough blood?denies.?Shortness of breath?denies.?Wheezing?denies.?Cardiovascular:?Pacemaker?denies.?MVP?denies.?WPW?denies.?CHF?denies.?Heart attack?denies.?Septal defect?denies.?Rapid beat?denies.?Chest pain ?denies.?Atrial Fib.?denies.?Murmur/Palpitations?denies.?Gastrointestinal:?Hemorrhoids?denies.?Stomach/Abdominal pain?denies.?Dark blood stool?denies.?Irritable bowel ?denies.?Constipation?denies.?Diarrhea?denies.?Hematology:?Swelling?denies.?Clots?denies.?Varicose Veins?denies.?Bruising?admits, on aspirin.?Bleeding problem?admits, on anticoagulants.?Genitourinary:?Blood urine?denies.?Frequent/Painfu/urination/bladder control?denies.?Kidney stones?denies.?Infection (UTI)?denies.?Nephropathy?denies.?sex trans dis (STD)?denies.?Prostate?denies.?Musculoskeletal:?Hammertoes?admits.?Bunions?denies.?Back Pain?admits.?Muscle Cramps/ Resting?denies.?Muscle cramps / walking?denies.?Generalized aches and pains?admits.?Weakness?denies.?Integ.:?Singh?denies.?Scars?denies.?Corns/calluses?admits.?Ingrown nails?admits.?Painful nails?admits.?Open Sores?denies.?Rashes?denies.?Neurologic:?Difficulty sleeping?denies.?Brain disorder?denies.?Numbness?denies.?Balance trouble?denies.?Confusion?denies.?Fainting/blackouts?denies.?Tingling?denies.?Tr emors?denies.? * Medical History:? * Surgical History:?knee surge ry, left 2000knee surgery, right 2002bladder lifted surgery 2014 * Hospitalization/Major Diagno stic Procedure:?[facility] [place] Xrays left foot 07/01/17 * Family History:?Mother: dece ased, heart attack, diagnosed with Unspecified heart disease.?Father: , heart attack, diagnosed with Family history of arthritis, Diabetic - NIDDM, Unspecified heart disease.?Siblings: poor circulation, diagnosed with Other malignant neoplasm of unspecified site.?Spouse: alive.? * Social History:?Tobacco Use:?Tobacco Use/Smoking?Are you a:?nonsmoker ?Additional Findings: Tobacco Non-User?Current non-smoker ?Tobacco use other than smoking?Are you an other tobacco user??No ???Drugs/Alcohol:?Drugs?Have you used drugs other than those for medical reasons in the past 12 months??No ?Alcohol Screen?Did you have a drink containing alcohol in the past year??Yes ?How often did you have a drink containing alcohol in the past year??Monthly or less (1 point) ?How many drinks did you have on a typical day when you were drinking in the past year??1 or 2 drinks (0 point) ?How often did you have 6 or more drinks on one occasion in the past year??Never (0 point) ?Points?1 ?Interpretation?Negative ???Miscellaneous:?Caffeine: yes, frequency:, 1-2 cups per day. ?no Exercise. ?Marital status: . ?Occupation: retired. * Medications:?TakingOmeprazol e Keflex Trospium Chloride Biotin Maia Azelastine HCl diazePAM 2 MG Tablet (Schedule IV Drug) TK 1 T PO QD PRN Oral , Notes: PRNFlonase Gabapentin Pravastatin Sodium 40 MG Tablet 1 tablet Orally Once a dayPriLOSEC , Notes: dailyTaking Omeprazole Taking Keflex Taking Trospium Chloride Taking Biotin Taking Maia Taking Azelastine HCl Taking diazePAM 2 MG Tablet (Schedule IV Drug) TK 1 T PO QD PRN Oral , Notes: PRNTaking Flonase Taking Gabapentin Taking Pravastatin Sodium 40 MG Tablet 1 tablet Orally Once a dayTaking PriLOSEC , Notes: dailyNot-Taking/PRNCefpodoxime Proxetil oxyBUTYnin ASO Ankle/Foot Stablizing AFO As directed Wear DailyTrimethoprim Aspirin 81 MG Tablet Delayed Release 1 tablet Orally Once a dayBioflex Medication List reviewed and reconciled with the patientNot-Taking/PRN Cefpodoxime Proxetil Not-Taking/PRN oxyBUTYnin Not- Taking/PRN ASO Ankle/Foot Stablizing AFO As directed Wear DailyNot-Taking/PRN Trimethoprim Not-Taking/PRN Aspirin 81 MG Tablet Delayed Release 1 tablet Orally Once a dayNot-Taking/PRN Bioflex Medication List reviewed and reconciled with the patient * Allergies:?Demerol: nauseaan esthesiaMorphine: nauseaSeasonaleyes[Allergies Verified] Objective: * Vitals:?Ht: 5ft 2in, Wt: 167 , BMI: 30.54, Shoe size: 10, Ht-cm: 157.48 cm, Wt- k.75 kg. * Examination: ???Vascular: ?DP PULSES:? 0/4, B/L.?PT PULSES:? 0/4, B/L.?CAPILLARY FILL TIME:? delayed, all digits, B/L.?SKIN TEMPERTURE GRADIENT OF THE LOWER EXTERMITIES:? decreased, cool to cool, proximal to distal, B/L.?HAIR GROWTH/TEXTURE/ELASTICITY/TURGOR:? decreased, B/L.?PIGMENTATION:? rubrous, Forefoot, B/L.?EDEMA:?absent, B/L.?CLAUDICATION:?denies, B/L.?REST PAIN:?denies, B/L.?Nails: ?NAILS are:?Elongated, overgrown, dystrophic, lytic, greater than 3mm thick, discolored and friable with crumbly malodorous subungual debris, with pain on palpation , TA, T1, T2, T4, T5, T6, T7.?Dermatologic: ?SKIN FINDINGS:? Skin exam reveals Keratotic lesion(s) located at, Heel(s), B/L .? Assessment: * Assessment: 1.?Tinea unguium - B35.1?2.? Atherosclerosis of [place] artery of both lower extremities, with unspecified presence of clinical manifestation - I70.203 (Primary)?3.?Pain in right toe(s) - M79.674?4.?Pain in left toe(s) - M79.675? Plan: * Treatment: 2.?Tinea unguium?Procedure: 60105-GNHXDEH NAIL, 6 OR MORE * Procedures:?Debride Nail 6-10:?Nail debridement?Nail debridement performed extensively to reduce/remove overall nail length, girth, thickness, subungual debris, and necrotic tissue, by manual and electrical means through the use of a nail nipper and/or dremel, to more viable healthy nail plate or bed tissue 1-5. Silver nitrate used for any petechial bleeding as necessary. Patient chooses, no pharmaceutical tx (17787).?Keratoma Treatment:?Parring or Cutting of Benign Hyperkeratotic Lesion(s)?21996 (2-4 Lesions) - The Benign hyperkeratotic lesions, as described above were pared, and/or cut utilizing a sterile #15 blade, tissue nippers, and/or dremel, Q8.? * Procedure Codes:?79092 DEBRI DE NAIL, 6 OR MORE, Modifiers: XS 43634 TRIM SKIN LESIONS, 2 TO 4, Modifiers: XS , Q8 * Follow Up:?prn * Images: * Sign off status: Completed Addendum: * ? true * Provider:?Polo Banda DPM Date:?2023 Generated for Tisha head/Jag/eTransmitting on:?10/31/2024 08:10 AM EST History and Physical Notes * HPI (History of Present Illness) Category Sub-Category Detail Notes Category Not es At Risk footcare Pt States Last PCP Visit: Date: Examination Category Sub-Category Detail Notes Category Not es Dermatologic SKIN FINDINGS: Skin exam reveal s Keratotic lesion(s) located at, Heel(s), B/L Vascular DP PULSES (B): 0/4, B/L PT PULSES (B): 0/4, B/L CAPILLARY FILL TIME: delayed, all digits , B/L TEMPERTURE GRADIENT (C): decreased, cool to cool, proximal to distal, B/L TROPHIC CONDITION-TEXTURE/ELASTICITY/TURGOR/HAIR GROWTH (B): decreased, B/L EDEMA (C): absent, B/L CLAUDICATION (C): denies, B/L REST PAIN: denies, B/L PIGMENTATION: rubrous, Forefoot, B /L Nails NAILS are: Elongated, overg rown, dystrophic, lytic, greater than 3mm thick, discolored and friable with crumbly malodorous subungual debris, with pain on palpation , TA, T1, T2, T4, T5, T6, T7
--- OUTSIDE RECORDS SUMMARY | 2024-10-31 08:10 | XMS_ITS | Encounter Summary ---
Author Organization [facility] Address [address] [place] [address] Care Team Providers Care Material Analyst Name Role Phone Vincent Garcia MD Primary Care Provider [phone] Encounter Details Date Type Department Care Team (Late st Contact Info) Description 07/06/2024 Lab Requisition [facility] - Main Lab [address] [facility] [place] [phone] Rickey Bearden MD [address] [facility] [address] [place] [address] Dysuria Social History Tobacco Use Types Packs/Day [...] Comments BACTERIAL IDENTIFICATION AND SUSCEPTIBILITY, AEROBIC Routine 07/05/2024 12:00 AM EST Dysuria documented in this encounter Results * (ABNORMAL) Bacterial identification and susceptibility, aerobic (07/05/2024 12:00 AM EST) Culture, Bacterial ID and Sensitivity Enterobacter cloacae complex(A) SARA 07/07/2024 9:28 AM EST [facility] Comment: This is an edited result. Previous organism was Gram negative bacilli on 07/06/2024 at 1441 EST. Other Topography unknown / Unknown 07/05/2024 07/06/2024 11:00 AM EST Narrative Organism Antibiotic Method Susceptibility [...] Susceptible Enterobacter cloacae complex Trimethoprim/Sulfamethoxazo le SARA <=20 ug/ml: Susceptible us Rickey Bearden MD LAB MICROBIOLOGY - [facility] ORDERABLES Final Result [facility] [address] [place] [address], documented in this encounter Visit Diagnoses Diagnosis Dysuria documented in this encounter Care Teams Material Analyst Relationship Specialty Start Date End Date Vincent Garcia MD [address] [place] [address] Dr Sweetie [place] PCP - General Internal Medicine 12/13/18 documented as of this encounter
--- OUTSIDE RECORDS SUMMARY | 2024-10-31 08:10 | XMS_ITS ---
Author Organization [facility] [place] Address [address] [place] [address] Care Team Providers Care Manager Grocery Name Role Phone Vincent Garcia MD Primary Care Provider Polo Schaffer Unavailable [phone] Allergies Allergen (clinical drug ingredient) Drug/Non Drug [...] Duration) Notes Start Date End Date Status PriLOSEC daily Active Trospium Chloride Ac tive Pravastatin Sodium 40 MG 1 tablet Orally Once a day Active Omeprazole Active Keflex Active diazePAM 2 MG (Schedule IV Drug) T K 1 T PO QD PRN Oral for 30 PRN Active Flonase Active Azelastine HCl Activ e Biotin Active Gabapentin Active Maia Active Trimethoprim Not-Raheem ing Aspirin 81 MG 1 tablet Orally Once a day Not-Taking ASO Ankle/Foot Stablizing AFO As directed Wear Daily for as needed 11/29/2018 Not-Taking Bioflex Not-Taking Cefpodoxime Proxetil Not-Taking oxyBUTYnin Not-Takin g Social History Tobacco Use: Social History Observation [...] No Vital Signs Height 5ft 2in in 07/18/2024 Weight 166 lbs 07/18/2024 BMI 30.36 kg/m2 07/18/2024 Procedures Procedure Date Ordered Date Performed Result Body Sit e 34056-RUTNBMJ NAIL, 6 OR MORE 07/18/2024 N/A 05217-FDRB SKIN LESIONS, OVER 4 07/18/2024 N/A Encounters Encounter Location Date Provider Diagnosis [facility] [address] [address] 07/18/2024 Polo Banda Atherosclerosis of [place] artery of both lower extremities, with unspecified presence of clinical manifestation I70.203 ; Tinea unguium B35.1 ; Pain in right toe(s) M79.674 and Pain in left toe(s) M79.675 Assessments Encounter Date Diagnosis (ICD Code) Assessment Notes Treatment Notes Treatment Clinical Notes Section Notes 07/18/2024 Atherosclerosis of [place] artery of both lower extremities, with unspecified presence of clinical manifestation (ICD-10 - I70.203) 07/18/2024 Tinea unguium (ICD-10 - B35.1) 07/18/2024 Pain in right toe(s) (ICD-10 - M79.674) 07/18/2024 Pain in left toe(s) (ICD-10 - M79.675) Plan Of Treatment Pending Test Test Name Order Date 06467-JLXJXKQ NAIL, 6 OR MORE 07/18/2024 77555-WKLP SKIN LESIONS, OVER 4 07/18/20 24 Next Appt Details Follow Up: prn, Reason: Provider Name:Polo Banda , 11/14/2024 11:00:00 AM, [address] [facility], [address] [facility], , [address], Procedure Notes * Category Sub-Category Detail Notes Debride Nail 6-10 Nail debridement Performance o f this nail treatment by a nonprofessional would put this patients foot and overall health at risk. Therefore, debridement to affected nail(s), as described in exam, was performed extensively to reduce/remove overall nail length, girth, thickness, subungual debris, and necrotic tissue, by manual and/or electrical means through the use of a nail nipper and/or dremel-type pulp grinder, to a more viable healthy nail plate or bed tissue 6-10. Silver nitrate used for any petechial bleeding as necessary. Definitive antifungal treatment options have been reviewed and discussed with the patient. The patient chooses, no pharmaceutical tx - [address]993 Keratoma Treatment Parring or Cutting o f Benign Hyperkeratotic Lesion(s) (-57) More than 4 Lesions - The Benign hyperkeratotic lesions, as described in exam, were pared, and/or cut utilizing a sterile 15 blade, tissue nippers, and/or dremel - 50929, Q8 Progress Notes * Roselia TINSLEY PDOB:[birth year] (79 yo F)Acc No.[id number]:07/18/2024 Progress Note Patient:?Roselia TINSLEY P Provider:?Polo Banda DPM :1945???Age:79 Y???Sex:Female D ate:07/18/2024 Address:[address] [place], [place] [phone] Pcp:Vincent Garcia MD Subjective: * Chief Complaints: * ???At Risk FootcarePainful N ail(s) aggrevated by shoes and causing difficulty standing/walking. * HPI: ???At Risk footcare:?Pt States Last PCP Visit:?Date?06/02/2024 * ROS:?General/Constitutional:?Nausea?denies.?Vomiting?denies.?Hunger Thirst?denies.?Loss appetite?denies.?Chills?denies.?Fatigue?denies.?Fever?denies.?Night Sweats?denies.?Unexplained weight loss?denies.?Unexplained [...] lifted surgery 2014 * Hospitalization/Major Diagno stic Procedure:?[facility] [place] Xrays left foot 07/01/17 * Family History:?Mother: dece ased, heart attack, diagnosed with Unspecified heart disease.?Father: , heart attack, diagnosed with Diabetic - NIDDM, Unspecified heart disease, Family history of arthritis.?Siblings: poor circulation, diagnosed with Other malignant neoplasm [...] ???Miscellaneous:?Caffeine: yes, frequency:, 1-2 cups per day. ?Exercise: no. ?Marital status: . ?Occupation: retired. * Medications:?TakingAllegra A zelastine HCl Biotin diazePAM 2 MG Tablet (Schedule IV Drug) TK 1 T PO QD PRN Oral , Notes to Pharmacist: PRNFlonase Gabapentin Keflex Omeprazole Trospium Chloride Pravastatin Sodium 40 MG Tablet 1 tablet Orally Once a day PriLOSEC , Notes to Pharmacist: dailyTaking Maia Taking Azelastine HCl Taking Biotin Taking diazePAM 2 MG Tablet (Schedule IV Drug) TK 1 T PO QD PRN Oral , Notes to Pharmacist: PRNTaking Flonase Taking Gabapentin Taking Keflex Taking Omeprazole Taking Trospium Chloride Taking Pravastatin Sodium 40 MG Tablet 1 tablet Orally Once a day Taking PriLOSEC , Notes to Pharmacist: dailyNot-Taking/PRNCefpodoxime Proxetil oxyBUTYnin ASO Ankle/Foot Stablizing AFO As directed Wear Daily Trimethoprim Aspirin 81 MG Tablet Delayed Release 1 tablet Orally Once a day Bioflex Medication List reviewed and reconciled with the patientNot-Taking/PRN Cefpodoxime Proxetil Not-Taking/PRN oxyBUTYnin Not-Taking/PRN ASO Ankle/Foot Stablizing AFO As directed Wear Daily Not-Taking/PRN Trimethoprim Not-Taking/PRN Aspirin 81 MG Tablet Delayed Release 1 tablet Orally Once a day Not-Taking/PRN Bioflex Medication List reviewed and reconciled with the patient * Allergies:?Demerol: nauseaan esthesiaMorphine: nauseaSeasonaleyes[Allergies Verified] Objective: * Vitals:?Ht: 5ft 2in, Wt:166, BMI: 30.36, Shoe size:10, Ht-cm: 157.48 cm, Wt-k.3 kg. * Examination: ???Vascular: ?DP PULSES(B):? 0/4, B/L.?PT PULSES(B):? 0/4, B/L.?CAPILLARY FILL TIME:? delayed, all digits, B/L.?TROPHIC CONDITION-TEXTURE/ELASTICITY/TURGOR/HAIR GROWTH(B):? decreased,?with sparse to absent hair growth, B/L.?TEMPERTURE GRADIENT(C):? decreased, cool to cool, proximal to distal, B/L.?PIGMENTATION:? rubrous, Forefoot, B/L.?EDEMA(C):?absent, B/L.?CLAUDICATION(C):?denies, B/L.?REST PAIN:?denies, B/L.?Nails: ?NAILS are:?Elongated, overgrown, dystrophic, lytic, greater than 3mm thick, discolored and friable with crumbly malodorous subungual debris, with pain on palpation , TA, T1, T2, T4, T5, T6, T7.?Dermatologic: ?SKIN FINDINGS:? Skin exam reveals Keratotic lesion(s) located at,?Medial,?IPJ,?TA,?Medial,?IPJ,?T5,?SUB MTH (s),?1,?Left,?Plantar, Heel(s), B/L .? Assessment: * Assessment: 1.?Tinea unguium - B35.1???2 .?Atherosclerosis of [place] artery of both lower extremities, with unspecified presence of clinical manifestation - I70.203 (Primary)???3.?Pain in right toe(s) - M79.674???4.?Pain in left toe(s) - M79.675??? Plan: * Treatment: 2.?Tinea unguium?Procedure: 63898-[id number] NAIL, 6 OR MORE * Procedures:?Debride Nail 6-10:?Nail debridement?Performance of this nail treatment by a nonprofessional would put this patients foot and overall health at risk. Therefore, debridement to affected nail(s), as described in exam, was performed extensively to reduce/remove overall nail length, girth, thickness, subungual debris, and necrotic tissue, by manual and/or electrical means through the use of a nail nipper and/or dremel-type pulp grinder, to a more viable healthy nail plate or bed tissue 6-10. Silver nitrate used for any petechial bleeding as necessary. Definitive antifungal treatment options have been reviewed and discussed with the patient. The patient chooses, no pharmaceutical tx - 95845.?Keratoma Treatment:?Parring or Cutting of Benign Hyperkeratotic Lesion(s)?(-57) More than 4 Lesions - The Benign hyperkeratotic lesions, as described in exam, were pared, and/or cut utilizing a sterile 15 blade, tissue nippers, and/or dremel - 36136, Q8.? * Procedure Codes:?37671 DEBRI DE NAIL, 6 OR MORE, Modifiers: XS 45503 TRIM SKIN LESIONS, OVER 4, Modifiers: XS , Q8 * Follow Up:?prn * Images: * Sign off status: Completed true * Provider:?Polo Banda DPM Date:?2023 Generated for Tisha head/Jag/Nancy on:?10/31/2024 08:09 AM EST History and Physical Notes * HPI (History of Present Illness) Category Sub-Category Detail Notes Category Not es At Risk footcare Pt States Last PCP Visit: Date: Examination Category Sub-Category Detail Notes Category Not es Dermatologic SKIN FINDINGS: Skin exam reveal s Keratotic lesion(s) located at, Medial, IPJ, TA, Medial, IPJ, T5, SUB MTH (s), 1, Left, Plantar, Heel(s), B/L Vascular DP PULSES (B): 0/4, B/L PT PULSES (B): 0/4, B/L CAPILLARY FILL TIME: delayed, all digits , B/L TEMPERTURE GRADIENT (C): decreased, cool to cool, proximal to distal, B/L TROPHIC CONDITION-TEXTURE/ELASTICITY/TURGOR/HAIR GROWTH (B): decreased, with sparse to absent hair gr owth, B/L EDEMA (C): absent, B/L CLAUDICATION (C): denies, B/L REST PAIN: denies, B/L PIGMENTATION: rubrous, Forefoot, B /L Nails NAILS are: Elongated, overg rown, dystrophic, lytic, greater than 3mm thick, discolored and friable with crumbly malodorous subungual debris, with pain on palpation , TA, T1, T2, T4, T5, T6, T7
--- OUTSIDE RECORDS SUMMARY | 2024-10-31 08:10 | XMS_ITS | Encounter Summary ---
Author Organization [facility] Address [address] [place] [address] Care Team Providers Care Manager Valuation Name Role Phone Vincent Garcia MD Primary Care Provider [phone] Encounter Details Date Type Department Care Team (Late st Contact Info) Description 09/02/2024 Lab Requisition [facility] - Main Lab [address] [place] [id number] Rashida Velez MD [address] [address] Dysuria Social History Tobacco Use Types Packs/Day [...] AEROBIC Routine 09/01/2024 12:00 AM EST Dysuria documented in this encounter Results * (ABNORMAL) Bacterial identification and susceptibility, aerobic (09/01/2024 12:00 AM EST) Culture, Bacterial ID and Sensitivity Enterobacter cloacae complex(A) SARA 09/03/2024 8:28 AM EST [facility] Comment: This is an [...] MICROBIOLOGY - G ENERAL ORDERABLES Final Result [facility] [address] [place] [address], documented in this encounter Visit Diagnoses Diagnosis Dysuria documented in this encounter Care Teams Manager Valuation Relationship Specialty Start Date End Date Vincent Garcia MD [address] [place] [address] Dr Sweetie [place] PCP - General Internal Medicine 12/13/18 documented as of this encounter
--- OUTSIDE RECORDS SUMMARY | 2024-10-31 08:10 | XMS_ITS ---
Author Name [facility] Organization Unknown Results Test Name/Text Value Interpretation Date Range Source LAB AP DIAGNOSIS COMMENT Received from [facility], [address], [place] [address], are one slide and one block labeled [id number] , which are retained for our files. Normal [facility] AP GROSS DESCRIPTION Received in formalin is an irregularly shaped fragment of skin measuring 0.9 x 0.6 x 0.3 cm. The deep margin is inked in black and the specimen is serially sectioned and submitted entirely in one cassette. (Gross Description performed by [facility], [place], [place]) Normal [facility] LAB AP CLINICAL INFORMATION Irritated nevus - *margins requested Normal [facility]
--- OUTSIDE RECORDS SUMMARY | 2024-10-31 08:10 | XMS_ITS | Patient Health Record ---
Author Organization [facility] Address [address] [place] [address] Care Team Providers Care Marketing Technology Specialist Name Role Phone Vincent Garcia MD Primary Care Provider Polo Schaffer Unavailable [phone] Allergies Allergen (clinical drug ingredient) Drug/Non Drug Allergy documented on EMR Reaction Allergy Type Onset Date Status anesthesia (uncoded) Unknown Allergy Active meperidine Demerol nausea Drug Allergy Active Seasonale Unknown Drug Allergy Active morphine Morphine nausea Drug Allergy Active Reason For Referral No Information Medications Medication SIG (Take, Route, Frequency, Duration) Notes Start Date End Date Status PriLOSEC daily Active Maia Active Cefpodoxime Proxetil Not-Taking Trospium Chloride Ac tive Pravastatin Sodium 40 MG 1 tablet Orally Once a day Active diazePAM 2 MG (Schedule IV Drug) T K 1 T PO QD PRN Oral for 30 PRN Active Trimethoprim Not-Raheem ing Flonase Active Aspirin 81 MG 1 tablet Orally Once a day Not-Taking Azelastine HCl Activ e oxyBUTYnin Not-Takin g Biotin Active ASO Ankle/Foot Stablizing AFO As directed Wear Daily for as needed 11/29/2018 Not-Taking Omeprazole Active Gabapentin Active Bioflex Not-Taking Keflex Active Immunizations Vaccine Route Administration Date Status Comme nts COVID-19 Pfizer BioNTech Vaccine Unknown 11/08/2020 Adm inistered COVID-19 Pfizer BioNTech Vaccine Unknown 11/29/2020 Adm inistered Influenza Unknown 05/09/2021 Administered Social History Tobacco Use: Social History Observation [...] Are you an other tobacco user? No Problems Problem Type SNOMED Code ICD Code Onset Dates Problem Status W/U Status Risk Notes Problem Atherosclerosis of [place] arteries of the extremities (041313817633453) Atherosclerosis of [place] artery of both lower extremities, with unspecified presence of clinical manifestation (I70.203) Active confirmed Vital Signs Height 5ft 2in in 07/18/2024 Weight 166 lbs 07/18/2024 BMI 30.36 kg/m2 07/18/2024 Procedures Procedure Date Ordered Date Performed Result Body Sit e 26182-GHFCRBS NAIL, 6 OR MORE 03/28/2024 N/A 80613-OSEG SKIN LESIONS, 2 TO 4 03/28/2024 N/A 07919-CGWHDTY NAIL, 6 OR MORE 07/18/2024 N/A 26891-DYKA SKIN LESIONS, OVER 4 07/18/2024 N/A Encounters Encounter Location Date Provider [facility] [address] 03/28/2024 Polo Banda Atherosclerosis of [place] artery of both lower extremities, with unspecified presence of clinical manifestation I70.203 ; Tinea unguium B35.1 ; Pain in right toe(s) M79.674 and Pain in left toe(s) M79.[address] [facility] [address] 07/18/2024 Polo Banda Atherosclerosis of [place] artery of both lower extremities, with unspecified presence of clinical manifestation I70.203 ; Tinea unguium B35.1 ; Pain in right toe(s) M79.674 and Pain in left toe(s) M79.675 Assessments Encounter Date Diagnosis (ICD Code) Assessment Notes Treatment Notes Treatment Clinical Notes Section Notes 03/28/2024 Tinea unguium (ICD-10 - B35.1) 03/28/2024 Atherosclerosis of [place] artery of both lower extremities, with unspecified presence of clinical manifestation (ICD-10 - I70.203) 07/18/2024 Tinea unguium (ICD-10 - B35.1) 07/18/2024 Atherosclerosis of [place] artery of both lower extremities, with unspecified presence of clinical manifestation (ICD-10 - I70.203) 03/28/2024 Pain in right toe(s) (ICD-10 - M79.674) 07/18/2024 Pain in right toe(s) (ICD-10 - M79.674) 03/28/2024 Pain in left toe(s) (ICD-10 - M79.675) 07/18/2024 Pain in left toe(s) (ICD-10 - M79.675) Plan Of Treatment Pending Test Test Name Order Date 56601-OWUPRJA NAIL, 6 OR MORE 04/05/2018 83061-YGBMJDV NAIL, 6 OR MORE 08/02/2018 93392-FWHPSAA NAIL, 6 OR MORE 11/29/2018 26714-QYCFPRN NAIL, 6 OR MORE 05/09/2019 94974-GHDMWUL NAIL, 6 OR MORE 09/05/2019 42777-DYKGYHO NAIL, 6 OR MORE 01/14/2021 89289-KSHTQTW NAIL, 6 OR MORE 05/27/2021 56462-ABXTGJY NAIL, 6 OR MORE 10/07/2021 91904-VPEBRLL NAIL, 6 OR MORE 01/06/2022 19834-KOZTSCK NAIL, 6 OR MORE 04/07/2022 89296-NEQEVVN NAIL, 6 OR MORE 07/07/2022 51622-NCPMMXD NAIL, 6 OR MORE 08/10/2017 22417-JQWPCBD NAIL, 6 OR MORE 11/16/2017 54021-IKEGLFP NAIL, 6 OR MORE 10/06/2022 00572-TWUTUNP NAIL, 6 OR MORE 02/11/2023 88755-TJUOPOL NAIL, 6 OR MORE 06/11/2023 20919-QPHOTDS NAIL, 6 OR MORE 09/24/2023 01846-PYFSAEX NAIL, 6 OR MORE 03/28/2024 54221-CXNZDJF NAIL, 6 OR MORE 07/18/2024 59755-Mzxkoopb Plate 06/11/2023 41215-Nigsuggq Plate 02/11/2023 28035-Qcewikdk Plate 11/16/2017 57757-ISZA SKIN LESIONS, OVER 4 07/18/20 24 63715-DYLH SKIN LESIONS, 2 TO 4 03/28/20 24 09908-FDWQ SKIN LESIONS, 2 TO 4 06/11/20 23 17074-NGGD SKIN LESIONS, 2 TO 4 09/24/19 24 36410-SETL SKIN LESIONS, 2 TO 4 02/12/20 23 66896-MKJN SKIN LESIONS, 2 TO 4 10/06/19 23 29991-BBVB SKIN LESIONS, 2 TO 4 07/07/20 22 42838 - Tenotomy, open flexor 12/02/2017 Next Appt Details Provider Name:Polo Banda , 11/14/2024 11:00:00 AM, [address] [facility], [address], [place], [address], Insurance Providers Payer Name Payer Address Payer Phone Subscriber Number Group Number Insured Name Patient Relationship to Insured Coverage Start Date Coverage End Date [employer] Medicare Adv-[id number] [address] [address] [place] [address] [id number] Jaskaran Daly Spouse - patient is the spouse of the insured Medical (General) History Medical History History ICD Code Arthritis Back,Hip,and Knee pain Gall bladder problems Reflux ( GERD) Measles Mumps Chicken pox Joint implants/screws Cholesterol Surgical History Surgery Date(Month/Year) knee surgery, left 1999 knee surgery, right 2001 bladder lifted surgery 2014 Hospitalization History Reason Date(Month/Year[place] [facility] [place]
[2024-10-31 11:38] LABS: MANUAL DIFF FLAG NO
[2024-10-31 11:52] LABS: Basophils Absolute Auto 0.1 X10*3/uL (0.0-0.2); Basophils Percent Auto 0.6 % (0-2); Eosinophils Absolute Auto 0.2 X10*3/uL (0.0-0.4); Eosinophils Percent Auto 2.3 % (0-4); Hematocrit 44.7 % (37.0-47.0); Hemoglobin 14.5 g/dl (12.0-16.0); Imm Gran Abs Auto 0.04 X10*3/uL (0.00-0.03); Imm Gran Pct Auto 0.5 % (0.0-0.4); Lymphocytes Absolute Auto 1.7 X10*3/uL (1.2-4.9); Lymphocytes Percent Auto 21.1 % (20-40); Mean Corpuscular HGB Conc 32.4 g/dl (31.0-35.0); Mean Corpuscular Hemoglobin 29.8 pg (27.0-33.0); Mean Corpuscular Volume 91.8 fL (80.0-98.0); Mean Platelet Volume 11.1 fL (9.4-12.3); Monocytes Absolute Auto 0.6 X10*3/uL (0.1-1.2); Neutrophils Absolute Auto 5.4 x10*3/uL (2.0-8.3); Neutrophils Percent Auto 68.5 % (45-73); Platelet Count 239 X10*3/uL (160-400); Red Blood Count 4.87 X10*6/uL (4.20-5.50)
[2024-10-31 12:03] LABS: Alanine Aminotransferase 35 U/L (0-31); Albumin Level 4.2 g/dL (3.5-5.0); Alkaline Phosphatase 83 U/L (39-117); Anion Gap 12 (12-20); Aspartate Amino Transferase 33 U/L (5-31); Bilirubin Total 0.6 mg/dL (0.0-1.0); Blood Urea Nitrogen 15 mg/dL (9-16); Calcium 9.2 mg/dL (8.4-10.2); Carbon Dioxide 27 mmol/L (22-29); Chloride 103 mmol/L (96-108); Cholesterol 145 mg/dL (<200); Estimated Glomerular Filt Rate > 60; Glucose Fasting 83 mg/dL (60-99); HDL Cholesterol 39 mg/dL (>40); LDL Cholesterol Calculated 75 mg/dL (<100); Potassium 4.4 mmol/L (3.3-5.1); Sodium 138 mmol/L (135-145); Total Protein 7.6 g/dL (6.5-8.0); Triglycerides 157 mg/dL (<150)
== END 2024-10-31 08:03 | disposition home or self-care (01) ==
LOC: HO.WFDLDS 08:02
PROVIDERS: Visit Provider Internal Medicine
DX: I10 Essential (primary) hypertension (principal); E78.00 Pure hypercholesterolemia, unspecified; K21.9 Gastro-esophageal reflux disease without esophagitis
CPT/HCPCS: 36415; 80053; 80061; 85025

== ENCOUNTER 2024-11-14 09:33 | Outpatient (AMB) | payer MEDICARE, SELFPAY ==
--- NOTE | 2024-11-14 09:35 | MHC.PC.OV ---
Vital Signs 11/14/24 09:36 Height 5 ft 2 in Weight 166 lb BMI 30.4 BP 142/88 H Respiration 14 Pulse 92 Pulse Source Pulse Oximeter Temp 97.9 F Temp Source Temporal Artery Scan Pulse Oximetry (%) 98 Oxygen Delivery Method Room Air Intake Visit Reasons: BP Instrumentation And Controls Designer Required: No Accompanied by: Self / Same As Patient Allergies Anesthetics - Amide Type - Select A [Anesthetics - Amide Type] Adverse Reaction (Unknown, Unverified 11/14/24 09:36) NAUSEA & VOMITING Anesthetics - Anna Type- Parabens [Anesthetics - Anna Type] Adverse Reaction (Unknown, Unverified 11/14/24 09:36) NAUSEA & VOMITING Tobacco use date assessed: 11/14/24 Fall risk assessment: No Falls in past year Last assessed Fall Risk: 11/14/24 Dental Screening Dental Screen Date: 11/14/24 Did you have a dental visit in the last 12 months?: Yes Did you have a dental problem in the last 6 months where you did not have access to dental care?: No [facility] Medical History (Updated 11/14/24 @ 10:11 by Jed Portillo MD) GERD (gastroesophageal reflux disease) Accelerated essential hypertension Family History (Updated 11/14/24 @ 09:47 by BRIAN Vazquez) Father Heart problem Cardiomyopathy Mother CHF (congestive heart failure) Heart problem Social History (Updated 11/14/24 @ 09:47 by BRIAN Vazquez) Housing: House Alcohol intake: never Patient Tobacco Use Status: Never used Tobacco service: No Current occupational status: retired Cognitive needs: No Hearing needs: Yes (b/l hearing aids) Vision needs: Yes (reading glasses) Questionnaire PHQ-9 Over the last 2 weeks, how often have you been bothered by any of the following problems? 1. Little interest or pleasure in doing things: not at all 2. Feeling down, depressed, or hopeless: not at all 3. Trouble falling or staying asleep, or sleeping too much: not at all 4. Feeling tired or having little energy: not at all 5. Poor appetite or overeating: not at all 6. Feeling bad about yourself - or that you are a failure or have let yourself or your family down: not at all 7. Trouble concentrating on things, such as reading the newspaper or watching television: not at all 8. Moving or speaking so slowly that other people could have noticed. Or the opposite - being so fidgety or restless that you have been moving around a lot more than usual: not at all 9. Thoughts that you would be better off or of hurting yourself in some way: not at all Total score: 0 Source: Developed by Drs. Miguel Ochoa, Brina Recinos, Perfecto Anna and colleagues, with an educational mercy from [employer]. Thrive Questionnaire Date Thrive assessed: 11/14/24 I am a: Patient What is your living situation today?: I have a steady place to live Within the past 12 months, did the food you bought not last and you didn't have the money to get more?: Never true Within the past 12 months, did you worry whether your food would run out before you got money to buy more?: Never true Do you have trouble paying for medicines?: No Do you have trouble getting transportation to medical appointments?: No Do you have trouble paying your heating and electricity bill?: No Do you have trouble taking care of your child, family member or friend?: No Do you have trouble with day-to-day activities such as bathing, preparing meals, shopping, managing finances, etc.?: No Are you currently unemployed and looking for a job?: No Are you interested in more education?: No Please select the resources that you would like help with: None THRIVE Score: 0 AUDIT C Alcohol Use Questionnaire (AUDIT-C) 1. How often do you have a drink containing alcohol?: Never 3. How often do you have six or more drinks on one occasion?: Never Total Score: 0 NATA-7 AMB Questionnaire NATA-7 Date NATA - 7 assessed: 11/14/24 Feeling nervous, anxious, or on edge: 0 = Not at all Not being able to stop or control worryin = Not at all Worrying too much about different things: 0 = Not at all Trouble relaxin = Not at all Being so restless that it is hard to sit still: 0 = Not at all Becoming easily annoyed or irritable: 0 = Not at all Feeling afraid as if something awful might happen: 0 = Not at all Total NATA-7 score (0-4 normal; 5-9 mild; 10-14 moderate; 15-21 severe): 0 Source: Developed by Drs. Miguel Ochoa, Brina Recinos, Perfecto Anna and colleagues, with an educational mercy from [employer]. Physical exam (Primary Care) Vital Signs: Last Vital Signs Temp 97.9 F 11/14/24 09:36 Pulse 92 11/14/24 09:36 Resp 14 11/14/24 09:36 BP 142/88 H 11/14/24 09:36 Pulse Ox 98 11/14/24 09:36 Oxygen Delivery Method Room Air 11/14/24 09:36 BMI result Body Mass Index 30.4 Tobacco/Smoking Status: Tobacco use Status Tobacco use date assessed 11/14/24 11/14/24 09:48 Patient Tobacco Use Status Never used Tobacco 11/14/24 09:48 PHQ-9: PHQ-9 Score PHQ-9: Total score 0 11/14/24 09:48 Thrive Assessment: Date of Thrive Assessment Date Thrive assessed 11/14/24 11/14/24 09:48 Coding Level of Care Code New Pt Level 4 (94160) Complex EM visit Add On G2211 Diagnoses Accelerated essential hypertension I10 GERD (gastroesophageal reflux disease) K21.9 Assessment & Plan Assessment & Plan (1) Accelerated essential hypertension: Code(s): I10 - Essential (primary) hypertension Category: Medical Plan: Lisinopril 5 mg started. Counselling on diet and exercise done. Will increase the medication dosage accordingly. (2) GERD (gastroesophageal reflux disease): Code(s): K21.9 - Gastro-esophageal reflux disease without esophagitis Category: Medical Plan: PPI refilled. Plan History of Present Illness The patient is a 79-year-old female presenting with concerns related to elevated blood pressure readings. Three weeks ago, in the context of a sprained ankle, her blood pressure was initially found to be 170 mmHg at the emergency room but decreased to 128 mmHg subsequently. More recently, a nurse practitioner noted her blood pressure to be 148/89 mmHg, prompting concern. She described an episode of feeling woozy, which led her to urgent care, recording a blood pressure of 140/89 mmHg. The patient recalls a history of hypertension addressed with lisinopril 15 years ago, with no further issues until recently. She attributes headaches to her ongoing sinus problems, currently managed by an systems spec, Dr. Gaxiola. Social History - Lives independently. - Able to drive, including nighttime driving. - Performs routine activities such as grocery shopping and mall visits. - Previously had cataract surgery. - Experiences arthritis, specifically reporting worsened back pain on certain days. - Received a steroid injection in her back in July. Review of Systems - HEENT: Reports headaches, likely related to sinusitis. Physical Exam General: Cooperative and healthy appearing Nutritional Appearance: Well nourished Orientation/consciousness: Patient oriented x3 Limitations: No limitations Head: Normal to inspection General: Appearance normal, both eyes and all related structures Neck: Normal visual inspection Chest: Normal palpation of entire chest wall Respiratory: Normal respiratory effort Neurology: Patient oriented x3 Results - Labs: Recent blood work at the hospital is reported as normal. - Tests: Recent mammogram up to date; pending new results in January. - Diagnostics: Completed [facility] test, results mentioned but not reviewed. Plan I will start the patient on 5 mg of lisinopril daily for her elevated blood pressure, emphasizing vigilance in self-monitoring her readings. This lower starting dose will help assess her tolerance and response to the medication. Pending the outcomes of further blood pressure assessments, consideration for dose modification will be discussed upon her next follow-up. Her recent lab results did not reveal concerning findings needing immediate addressal. I have provided a renewed prescription for omeprazole as her insurance requirements have altered. Screenings like mammograms and colorectal cancer testing through [facility] are noted as maintained appropriately, with follow-up advisements aligned to these intervals. Patient was informed and verbally consented to the use of an ambient scribe for clinic note documentation during this visit. Discussion Notes During our discussion, I informed the patient about starting lisinopril at a lower dose of 5 mg to manage her blood pressure, noting the necessity of careful monitoring. We agreed that she will track her blood pressure at home and report any concerning changes. I also explained the continuity of her allergy treatment and the potential link to sinus-induced headaches. She understands the importance of remaining adherent to the medication regimen and following up regularly. The rationale for renewing omeprazole was discussed due to her insurance considerations and as proactive management for her dentist-raised concerns about acid-related oral issues. Patient Instructions - Begin taking lisinopril 5 mg daily as prescribed. - Monitor blood pressure regularly, noting any elevated readings or side effects. - Schedule follow-up appointment in three weeks to reassess blood pressure management. - Obtain mammogram in January and ensure screenings remain up to date. - Continue allergy management and report any significant changes. - Fill the prescription for omeprazole at preferred pharmacy and follow dosing instructions. Medications: New lisinopril 5 mg PO DAILY 60 tabs 0RF omeprazole 20 mg PO DAILY 90 caps 1RF
[2024-11-14 09:36] VITALS: BP 142/88; PULSE 92; RESP 14; TEMP 36.6; O2SAT 98; BMI 30.4
--- OUTSIDE RECORDS SUMMARY | 2024-11-14 10:19 | XMS_ITS | Patient Health Record ---
[facility] Address [address] [place] [address] Care Team Providers Care Nutrition Intern Name Role Phone Vincent Garcia MD Primary Care Provider Polo Schaffer Unavailable [phone] Allergies Allergen (clinical drug ingredient) Drug/Non Drug Allergy documented on EMR Reaction Allergy Type Onset Date Status anesthesia (uncoded) Unknown Allergy Active meperidine Demerol nausea Drug Allergy Active Seasonale Unknown Drug Allergy Active morphine Morphine nausea Drug Allergy Active Reason For Referral No Information Medications Medication SIG (Take, Route, Frequency, Duration) Notes Start Date End Date Status Flonase Active diazePAM 2 MG (Schedule IV Drug) T K 1 T PO QD PRN Oral for 30 PRN Active Trimethoprim Not-Raheem ing Biotin Active ASO Ankle/Foot Stablizing AFO As directed Wear Daily for as needed 11/29/2018 Not-Taking Azelastine HCl Activ e oxyBUTYnin Not-Takin g Maia Active Cefpodoxime Proxetil Not-Taking PriLOSEC daily Active Pravastatin Sodium 40 MG 1 tablet Orally Once a day Active Trospium Chloride Ac tive Omeprazole Active Keflex Active Gabapentin Active Bioflex Not-Taking Aspirin 81 MG 1 tablet Orally Once a day Not-Taking Immunizations Vaccine Route Administration Date Status Comme [...] W/U Status Risk Notes Problem Atherosclerosis of [place] arteries of the extremities (426553473283747) Atherosclerosis of [place] artery of both lower extremities, with unspecified presence of clinical manifestation (I70.203) Active confirmed Vital Signs Height 5ft 2in in 07/18/2024 Weight 166 lbs 07/18/2024 BMI 30.36 kg/m2 07/18/2024 Procedures Procedure Date Ordered Date Performed Result Body Sit e 23638-MXAFNYI NAIL, 6 OR MORE 03/28/2024 N/A 22917-ULLP SKIN LESIONS, 2 TO 4 03/28/2024 N/A 76806-LVLAVSA NAIL, 6 OR MORE 07/18/2024 N/A 32155-MVSX SKIN LESIONS, OVER 4 07/18/2024 N/A Encounters Encounter Location Date [facility] [address] 03/28/2024 Polo Banda Atherosclerosis of [place] artery of both lower extremities, with unspecified presence of clinical manifestation I70.203 ; Tinea unguium B35.1 ; Pain in right toe(s) M79.674 and Pain in left toe(s) M79.675 [facility] [address] 07/18/2024 Polo Banda Atherosclerosis of [place] artery of both lower extremities, with unspecified presence of clinical manifestation I70.203 ; Tinea unguium B35.1 ; Pain in right toe(s) M79.674 and Pain in left toe(s) M79.675 Assessments Encounter Date Diagnosis (ICD Code) Assessment Notes Treatment Notes Treatment Clinical Notes Section Notes 03/28/2024 Tinea unguium (ICD-10 - B35.1) 03/28/2024 Atherosclerosis of [place] artery of both lower extremities, with unspecified presence of clinical manifestation (ICD-10 - I70.203) 07/18/2024 Tinea unguium (ICD-10 - B35.1) 07/18/2024 Atherosclerosis of [place] artery of both lower extremities, with unspecified presence of clinical manifestation (ICD-10 - I70.203) 03/28/2024 Pain in right toe(s) (ICD-10 - M79.674) 07/18/2024 Pain in right toe(s) (ICD-10 - M79.674) 03/28/2024 Pain in left toe(s) (ICD-10 - M79.675) 07/18/2024 Pain in left toe(s) (ICD-10 - M79.675) Plan Of Treatment Pending Test Test Name Order Date 31490-ZOQJJXZ NAIL, 6 OR MORE 04/05/2018 78521-EJQSZWH NAIL, 6 OR MORE 08/02/2018 62788-FOUYDGF NAIL, 6 OR MORE 11/29/2018 71806-CVGAGAU NAIL, 6 OR MORE 05/09/2019 04084-CWGODQO NAIL, 6 OR MORE 09/05/2019 83993-DSFEUIV NAIL, 6 OR MORE 01/14/2021 00797-AKQXNNI NAIL, 6 OR MORE 05/27/2021 94710-EDIOJCB NAIL, 6 OR MORE 10/07/2021 95888-VEJTWOV NAIL, 6 OR MORE 01/06/2022 08729-KTBDYNC NAIL, 6 OR MORE 04/07/2022 77242-OWVDBGL NAIL, 6 OR MORE 07/07/2022 72584-MOXEOKP NAIL, 6 OR MORE 08/10/2017 99579-UNFMVTW NAIL, 6 OR MORE 11/16/2017 86402-VPUCXHG NAIL, 6 OR MORE 10/06/2022 16838-RNARFAB NAIL, 6 OR MORE 02/11/2023 64306-ACCJGYY NAIL, 6 OR MORE 06/11/2023 50449-IQLXCJJ NAIL, 6 OR MORE 09/24/2023 04762-VXGFSOM NAIL, 6 OR MORE 03/28/2024 63917-RFCZCWM NAIL, 6 OR MORE 07/18/2024 60201-Mssbxmbv Plate 06/11/2023 98059-Ncgymbpg Plate 02/11/2023 06973-Fvcaoqnm Plate 11/16/2017 57240-OLTB SKIN LESIONS, OVER 4 07/18/20 24 77125-PSXS SKIN LESIONS, 2 TO 4 03/28/20 24 51528-KBBZ SKIN LESIONS, 2 TO 4 06/11/20 23 80431-MPGW SKIN LESIONS, 2 TO 4 09/24/19 24 11443-PYOV SKIN LESIONS, 2 TO 4 02/12/20 23 93872-UMUY SKIN LESIONS, 2 TO 4 10/06/19 23 70434-KVRF SKIN LESIONS, 2 TO 4 07/07/20 22 86108 - Tenotomy, open flexor 12/02/2017 Next Appt Details Provider Name:Polo Banda , 11/14/2024 11:00:00 AM, [address] [facility], [address], [place], [address], Insurance Providers Payer Name Payer Address Payer Phone Subscriber Number Group Number Insured Name Patient Relationship to Insured Coverage Start Date Coverage End Date [employer] Medicare [id number] [address] [address] [place] [address] [id number] Jaskaran Daly Spouse - patient is the spouse of the insured Medical (General) History Medical History History ICD Code Arthritis Back,Hip,and Knee pain Gall bladder problems Reflux ( GERD) Measles Mumps Chicken pox Joint implants/screws Cholesterol Surgical History Surgery Date(Month/Year) knee surgery, left 1999 knee surgery, right 2001 bladder lifted surgery 2014 [place] History Reason [place] [facility] [place]
--- OUTSIDE RECORDS SUMMARY | 2024-11-14 10:19 | XMS_ITS | Encounter Summary ---
Author Organization [facility] Address [address] [place] [address] Care Team Providers Care Consulting Property Manager Name Role Phone Vincent Garcia MD Primary Care Provider [phone] Encounter Details Date Type Department Care Team (Late st Contact Info) Description 08/16/2024 Lab Requisition [facility] - Main Lab [address] [facility] [place] [address] Tere Ambriz NP [address] [facility] [address] [place] [address] Dysuria Social History Tobacco Use Types Packs/Day [...] cloacae complex(A) SARA 08/17/2024 10:29 AM EST [facility] Comment: This is an edited result. Previous organism was Gram negative bacilli on 08/16/2024 at 1032 EST. Culture, Bacterial ID and Sensitivity Corynebacterium species(A) SARA 08/17/2024 10:29 AM EST [facility] Comment: The organism value for this [...] SARA <=20 ug/ml: Susceptible us Tere Ambriz MANUFACTURING CONTROLLER LAB MICROBIOLOGY - GENERA L ORDERABLES Final Result [facility] [address] [place] [address], documented in this encounter Visit Diagnoses Diagnosis Dysuria documented in this encounter Care Teams Consulting Property Manager Relationship Specialty Start Date End Date Vincent Garcia MD [address] [place] [address] Dr Sweetie [place] PCP - General Internal Medicine 12/13/18 documented as of this encounter
--- OUTSIDE RECORDS SUMMARY | 2024-11-14 10:19 | XMS_ITS ---
Author Organization [facility] Address [address] [place] [address] Care Team Providers Care Police Crime Scene Technician Name Role Phone Vincent Garcia MD Primary Care Provider Polo Schaffer Unavailable [phone] Medications Medication SIG (Take, Route, Frequency, Duration) Notes Start Date End Date Status Trimethoprim Not-Raheem ing Azelastine HCl Activ e Maia Active Bioflex Not-Taking Aspirin 81 MG 1 tablet Orally Once a day Not-Taking ASO Ankle/Foot Stablizing AFO As directed Wear Daily for as needed 11/29/2018 Not-Taking oxyBUTYnin Not-Takin g Cefpodoxime Proxetil Not-Taking PriLOSEC daily Active Pravastatin Sodium 40 MG 1 tablet Orally Once a day Active Flonase Active Trospium Chloride Ac tive Omeprazole Active Keflex Active Gabapentin Active diazePAM 2 MG (Schedule IV Drug) T K 1 T PO QD PRN Oral for 30 PRN Active Biotin Active Encounters Encounter Location Date Provider Diagnosis [facility] [place] [address] [address] 11/14/2024 Polo Banda Plan Of Treatment Next Appt Details Provider Name:Polo Banda , 11/14/2024 11:00:00 AM, [address] [address], [place], [address], Progress Notes * ALVINA Roselia PDOB:[birth year] (79 yo F)Acc No.[id number]:11/14/2024 Progress Note Patient:Roselia NUÑEZ Provider:?Polo Banda DPM :1945???Age:79 Y???Sex:Female D ate:11/14/2024 Address:[address] [place], [place] [address] Pcp:Vincent Garcia MD Subjective: * Chief Complaints: * ??? * Medical History:? * Medications:?Taking Maia , Taking Azelastine HCl , Taking Biotin , Taking diazePAM 2 MG Tablet (Schedule IV Drug) TK 1 T PO QD PRN Oral , Notes to Pharmacist: PRN, Taking Flonase , Taking Gabapentin , Taking Keflex , Taking Omeprazole , Taking Trospium Chloride , Taking Pravastatin Sodium 40 MG Tablet 1 tablet Orally Once a day , Taking PriLOSEC , Notes to Pharmacist: daily, Not-Taking/PRN Cefpodoxime Proxetil , Not-Taking/PRN oxyBUTYnin , Not-Taking/PRN ASO Ankle/Foot Stablizing AFO As directed Wear Daily , Not-Taking/PRN Trimethoprim , Not-Taking/PRN Aspirin 81 MG Tablet Delayed Release 1 tablet Orally Once a day , Not-Taking/PRN Bioflex Objective: * Vitals:? Assessment: Plan: * Treatment: * Images: * The named appointment provid er may or may not be the originator of this progress note, and it is not deemed complete until electronically signed by the appointment provider. Sign off status: Pending * Provider:?Polo Banda DPM Date:?2024 Generated for Tisha head/Jag/Sandersmitting on:?11/14/2024 10:19 AM EDT
--- OUTSIDE RECORDS SUMMARY | 2024-11-14 10:19 | XMS_ITS | Encounter Summary ---
Author Organization [facility] Address [address] [place] [address] Care Team Providers Care Cq Developer Name Role Phone Vincent Garcia MD Primary Care Provider [phone] Encounter Details Date Type Department Care Team (Late st Contact Info) Description 09/02/2024 Lab Requisition [facility] - Main Lab [address] [place] [phone] Rashida Velez MD [address] [address] Dysuria Social History Tobacco Use Types Packs/Day [...] cloacae complex(A) SARA 09/03/2024 8:[address] [facility] Comment: This is an edited [...] MICROBIOLOGY - G ENERAL ORDERABLES Final Result [facility] [address] [place] [address], documented in this encounter Visit Diagnoses Diagnosis Dysuria documented in this encounter Care Teams Cq Developer Relationship Specialty Start Date End Date Vincent Garcia MD [address] [place] [address] Dr Sweetie [place] PCP - General Internal Medicine 12/13/18 documented as of this encounter
--- OUTSIDE RECORDS SUMMARY | 2024-11-14 10:19 | XMS_ITS ---
Author [facility] [place] Address [address] [place] [address] Care Team Providers Care Residential Therapist Name Role Phone Vincent Garcia MD Primary Care Provider Polo Schaffer Unavailable [phone] Allergies Allergen (clinical drug ingredient) Drug/Non Drug [...] Ordered Date Performed Result Body Sit e 33496-ZCTOPJU NAIL, 6 OR MORE 07/18/2024 N/A 65741-RQND SKIN LESIONS, OVER 4 07/18/2024 N/A Encounters Encounter Location Date Provider Diagnosis [facility] [address] [address] 07/18/2024 Polo Banda Atherosclerosis of hopi artery of both lower extremities, with unspecified presence of clinical manifestation I70.203 ; Tinea unguium B35.1 ; Pain in right toe(s) M79.674 and Pain in left toe(s) M79.675 Assessments Encounter Date Diagnosis (ICD Code) Assessment Notes Treatment Notes Treatment Clinical Notes Section Notes 07/18/2024 Atherosclerosis of hopi artery of both lower extremities, with unspecified presence of clinical manifestation (ICD-10 - I70.203) 07/18/2024 Tinea unguium (ICD-10 - B35.1) 07/18/2024 Pain in right toe(s) (ICD-10 - M79.674) 07/18/2024 Pain in left toe(s) (ICD-10 - M79.675) Plan Of Treatment Pending Test Test Name Order Date 23961-GODYJVC NAIL, 6 OR MORE 07/18/2024 04905-NPVH SKIN LESIONS, OVER 4 07/18/20 24 Next Appt Details Follow Up: prn, Reason: Provider Name:Polo Banda , 11/14/2024 11:00:00 AM, [address] [facility], [facility], [place], [address], Procedure Notes * Category Sub-Category Detail Notes [...] use of a nail nipper and/or dremel-type meat grinder, to a more viable healthy nail plate or bed tissue 6-10. Silver nitrate used for any petechial bleeding as necessary. Definitive antifungal treatment options have been reviewed and discussed with the patient. The patient chooses, no pharmaceutical tx - 01488 Keratoma Treatment Parring or Cutting o f Benign Hyperkeratotic Lesion(s) (-57) More than 4 Lesions - The Benign hyperkeratotic lesions, as described in exam, were pared, and/or cut utilizing a sterile 15 blade, tissue nippers, and/or dremel - 67643, Q8 Progress Notes * Roselia TINSLEY PDOB:[birth year] (79 yo F)Acc No.[id number]:07/18/2024 Progress Note Patient:?Roselia TINSLEY P Provider:?Polo Banda DPM :1945???Age:79 Y???Sex:Female D ate:07/18/2024 Address:[address] [place], [place] [address] Pcp:Vincent Garcia MD Subjective: * Chief Complaints: [...] lifted surgery 2014 * Hospitalization/Major Diagno stic Procedure:?[facility] Xrays left foot 07/01/17 * Family History:?Mother: [...] Assessment: 1.?Tinea unguium - B35.1???2 .?Atherosclerosis of hopi artery of both lower extremities, with unspecified presence of clinical manifestation - I70.203 (Primary)???3.?Pain in right toe(s) - M79.674???4.?Pain in left toe(s) - M79.675??? Plan: * Treatment: 2.?Tinea unguium?Procedure: 11708-XMXFJBN NAIL, 6 OR MORE * Procedures:?Debride Nail [...] use of a nail nipper and/or dremel-type meat grinder, to a more viable healthy nail plate or bed tissue 6-10. Silver nitrate used for any petechial bleeding as necessary. Definitive antifungal treatment options have been reviewed and discussed with the patient. The patient chooses, no pharmaceutical tx - 80401.?Keratoma Treatment:?Parring or Cutting of Benign Hyperkeratotic Lesion(s)?(-57) More than 4 Lesions - The Benign hyperkeratotic lesions, as described in exam, were pared, and/or cut utilizing a sterile 15 blade, tissue nippers, and/or dremel - 94032, Q8.? * Procedure Codes:?65354 DEBRI DE NAIL, 6 OR MORE, Modifiers: XS 24324 TRIM SKIN LESIONS, OVER 4, Modifiers: XS , Q8 * Follow Up:?prn * Images: * Sign off status: Completed true * Provider:?Polo Banda DPM Date:?2023 Generated for Tisha head/Jag/Nancy on:?11/14/2024 10:19 AM EDT History and Physical Notes * HPI (History [...]
--- OUTSIDE RECORDS SUMMARY | 2024-11-14 10:20 | XMS_ITS ---
Author Organization [facility] [place] Address [address] [place] [address] Care Team Providers Care Mesh Worker Name Role Phone Vincent Garcia MD Primary Care Provider Polo Schaffer Unavailable [phone] Allergies Allergen (clinical drug ingredient) Drug/Non Drug [...] Ordered Date Performed Result Body Sit e 60992-IHTJVNF NAIL, 6 OR MORE 03/28/2024 N/A 65743-ZYRU SKIN LESIONS, 2 TO 4 03/28/2024 N/A Encounters Encounter Location Date Provider Diagnosis [facility] [place] [address] [place] [address] 03/28/2024 Polo Banda Atherosclerosis of ione artery of both lower extremities, with unspecified presence of clinical manifestation I70.203 ; Tinea unguium B35.1 ; Pain in right toe(s) M79.674 and Pain in left toe(s) M79.675 Assessments Encounter Date Diagnosis (ICD Code) Assessment Notes Treatment Notes Treatment Clinical Notes Section Notes 03/28/2024 Atherosclerosis of ione artery of both lower extremities, with unspecified presence of clinical manifestation (ICD-10 - I70.203) 03/28/2024 Tinea unguium (ICD-10 - B35.1) 03/28/2024 Pain in right toe(s) (ICD-10 - M79.674) 03/28/2024 Pain in left toe(s) (ICD-10 - M79.675) Plan Of Treatment Pending Test Test Name Order Date 14243-TOUWXGW NAIL, 6 OR MORE 03/28/2024 99818-FGKX SKIN LESIONS, 2 TO 4 03/28/20 24 Next Appt Details Follow Up: prn, Reason: Provider Name:Polo Banda , 11/14/2024 11:00:00 AM, [address] [facility], [address] [address], [place], [address], Procedure Notes * Category Sub-Category Detail Notes [...] as necessary. Patient chooses, no pharmaceutical tx (31245) Keratoma Treatment Parring or Cutting o f Benign Hyperkeratotic Lesion(s) 53045 (2-4 Lesions) - The Benign hyperkeratotic lesions, as described above were pared, and/or cut utilizing a sterile #15 blade, tissue nippers, and/or dremel, Q8 Progress Notes * Roselia TINSLEY PDOB:[birth year] (78 yo F)Acc No.[id number]:03/28/2024 Progress Note Patient:?Roselia Tinsley P Provider:?Polo Banda DPM :1945???Age:78 Y???Sex:Female D ate:03/28/2024 Address:[address] [place] [address] Pcp:Vincent Garcia MD Subjective: * Chief Complaints: [...] lifted surgery 2014 * Hospitalization/Major Diagno stic Procedure:?[facility] Xrays left foot 07/01/17 * Family History:?Mother: [...] Assessment: 1.?Tinea unguium - B35.1?2.? Atherosclerosis of ione artery of both lower extremities, with unspecified presence of clinical manifestation - I70.203 (Primary)?3.?Pain in right toe(s) - M79.674?4.?Pain in left toe(s) - M79.675? Plan: * Treatment: 2.?Tinea unguium?Procedure: 33197-EEKEYLG NAIL, 6 OR MORE * Procedures:?Debride Nail 6-10:?Nail debridement?Nail debridement performed extensively to reduce/remove overall nail length, girth, thickness, subungual debris, and necrotic tissue, by manual and electrical means through the use of a nail nipper and/or dremel, to more viable healthy nail plate or bed tissue 1-5. Silver nitrate used for any petechial bleeding as necessary. Patient chooses, no pharmaceutical tx (98535).?Keratoma Treatment:?Parring or Cutting of Benign Hyperkeratotic Lesion(s)?70075 (2-4 Lesions) - The Benign hyperkeratotic lesions, as described above were pared, and/or cut utilizing a sterile #15 blade, tissue nippers, and/or dremel, Q8.? * Procedure Codes:?18821 DEBRI DE NAIL, 6 OR MORE, Modifiers: XS 93753 TRIM SKIN LESIONS, 2 TO 4, Modifiers: XS , Q8 * Follow Up:?prn * Images: * Sign off status: Completed Addendum: * ? true * Provider:?Polo Banda DPM Date:?2023 Generated for Tisha head/Jag/eTransmitting on:?11/14/2024 10:19 AM EDT History and Physical Notes * HPI (History of Present Illness) Category Sub-Category Detail Notes Category Not es At Risk footcare Pt States Last PCP Visit: Date: 4 Examination Category Sub-Category Detail Notes Category Not [...]
--- OUTSIDE RECORDS SUMMARY | 2024-11-14 10:20 | XMS_ITS | Encounter Summary ---
Author Organization [facility] Address [address] [place] [address] Care Team Providers Care Cleaning Handyman Name Role Phone Vincent Garcia MD Primary Care Provider [phone] Encounter Details Date Type Department Care Team (Late st Contact Info) Description 07/06/2024 Lab Requisition [facility] - Main Lab 299 [facility] [place] [address] Rickey Bearden MD [address] [facility] [address] [place] [address] Dysuria Social History Tobacco Use Types Packs/Day [...] cloacae complex(A) SARA 07/07/2024 9:28 AM EST [facility] Comment: This is an edited result. [...] us Rickey Bearden MD LAB MICROBIOLOGY - [facility] ORDERABLES Final Result [facility] [address] [place] [address], documented in this encounter Visit Diagnoses Diagnosis Dysuria documented in this encounter Care Teams Cleaning Handyman Relationship Specialty Start Date End Date Vincent Garcia MD [address] [place] [address] Dr Sweetie [place] PCP - General Internal Medicine 12/13/18 documented as of this encounter
--- OUTSIDE RECORDS SUMMARY | 2024-11-14 10:20 | XMS_ITS | Clinical Summary ---
Author Organization [address] Address [address] [place] [address] Phone Care Team Providers Care Machine Cleaner Name Role Phone Vincent Garcia MD Primary Care Provider [phone] Encounters Date Type Department Care Team Description 09/02/2024 Lab Requisition [facility] - Main Lab [address] [facility] [place] [address] Rashida Velez MD Dysuria from Last 3 Months Surgical History Surgery Date Site/Laterality Comments TOTAL KNEE ARTHROPLASTY PROCEDURE: [place] ARTHRP KNE CONDYLE&PLATU MEDIAL&LAT COMPARTMENTS; COMMENT: both [...] Influ[employer] of Health Screening 08/03/2022 COVID-19 Vaccine (1 - 2024-2 5 season) 2024 Influenza Vaccine (#1) 2024 [...] AEROBIC Routine 09/01/2024 12:00 AM EST Dysuria from Last 3 Months Results * (ABNORMAL) Bacterial identification and susceptibility, aerobic (09/01/2024 12:00 AM EST) Culture, Bacterial ID and Sensitivity Enterobacter cloacae complex(A) SARA 09/03/2024 8:28 AM EST [facility] Comment: This is an [...] complex Trimethoprim/Sulfamethoxazo le SARA >=320 ug/ml: Resistant us Rashida Velez MD LAB MICROBIOLOGY - G ENERAL ORDERABLES Final Result [facility] [address] [place] [address], [place] [phone] from Last 3 Months Insurance [employer] Care Teams Machine Cleaner Relationship Specialty Start Date End Date Vincent Garcia MD [address] [place] [address] Dr Pitt [place] PCP - General Internal Medicine 12/13/18
== END 2024-11-14 10:11 | disposition home or self-care (01) ==
LOC: HO.HMCHD 09:33
PROVIDERS: PCP Internal Medicine; Visit Provider Internal Medicine
DX: I10 Essential (primary) hypertension (principal); K21.9 Gastro-esophageal reflux disease without esophagitis

== ENCOUNTER → 2024-11-14 09:33 | Outpatient (BNVA) | payer MEDICARE, SELFPAY | PROVIDERS: PCP Internal Medicine; Visit Provider Internal Medicine | DX: I10 Essential (primary) hypertension (principal); K21.9 Gastro-esophageal reflux disease without esophagitis | CPT/HCPCS: 99202 ==

== ENCOUNTER 2024-12-05 10:11 | Outpatient (AMB) | payer MEDICARE, SELFPAY ==
--- NOTE | 2024-12-05 10:28 | A.OFFPC_ITS ---
Vital Signs 12/05/24 10:29 Height 5 ft 2 in Weight 167 lb BMI 30.5 BP 138/76 Blood Pressure Location Lt brachial Position Sitting Pulse 79 Pulse Source Pulse Oximeter Temp 97.7 F Temp Source Axillary Pulse Oximetry (%) 99 Oxygen Delivery Method Room Air Intake Visit Reasons: 3 Week F/U Dehydrator Required: No Accompanied by: Self / Same As Patient Allergies Anesthetics - Amide Type - Select A [Anesthetics - Amide Type] Adverse Reaction (Unknown, Unverified 12/05/24 10:29) NAUSEA & VOMITING Anesthetics - Anna Type- Parabens [Anesthetics - Anna Type] Adverse Reaction (Unknown, Unverified 12/05/24 10:29) NAUSEA & VOMITING Tobacco use date assessed: 12/05/24 Fall risk assessment: No Falls in past year Dental Screening Dental Screen Date: 12/05/24 Did you have a dental visit in the last 12 months?: Yes Did you have a dental problem in the last 6 months where you did not have access to dental care?: No PFSH Medical History GERD (gastroesophageal reflux disease) Accelerated essential hypertension Family History Father Heart problem Cardiomyopathy Mother CHF (congestive heart failure) Heart problem Social History Housing: House Alcohol intake: never Patient Tobacco Use Status: Never used Tobacco service: No Current occupational status: retired Cognitive needs: No Hearing needs: Yes (b/l hearing aids) Vision needs: Yes (reading glasses) Questionnaire PHQ-9 Over the last 2 weeks, how often have you been bothered by any of the following problems? 1. Little interest or pleasure in doing things: not at all 2. Feeling down, depressed, or hopeless: not at all 3. Trouble falling or staying asleep, or sleeping too much: not at all 4. Feeling tired or having little energy: not at all 5. Poor appetite or overeating: not at all 6. Feeling bad about yourself - or that you are a failure or have let yourself or your family down: not at all 7. Trouble concentrating on things, such as reading the newspaper or watching television: not at all 8. Moving or speaking so slowly that other people could have noticed. Or the opposite - being so fidgety or restless that you have been moving around a lot more than usual: not at all 9. Thoughts that you would be better off or of hurting yourself in some way: not at all Total score: 0 Source: Developed by Drs. Miguel Ochoa, Brina Recinos, Perfecto Anna and colleagues, with an educational mercy from [employer]. Thrive Questionnaire Date Thrive assessed: 12/05/24 I am a: Patient Within the past 12 months, did the food you bought not last and you didn't have the money to get more?: Never true Within the past 12 months, did you worry whether your food would run out before you got money to buy more?: Never true Do you have trouble paying for medicines?: No Do you have trouble getting transportation to medical appointments?: No Do you have trouble paying your heating and electricity bill?: No Do you have trouble taking care of your child, family member or friend?: No Do you have trouble with day-to-day activities such as bathing, preparing meals, shopping, managing finances, etc.?: No Are you currently unemployed and looking for a job?: No Are you interested in more education?: No THRIVE Score: 0 AUDIT C Alcohol Use Questionnaire (AUDIT-C) 1. How often do you have a drink containing alcohol?: Never 3. How often do you have six or more drinks on one occasion?: Never Total Score: 0 NATA-7 AMB Questionnaire NATA-7 Date NATA - 7 assessed: 12/05/24 Feeling nervous, anxious, or on edge: 0 = Not at all Not being able to stop or control worryin = Not at all Worrying too much about different things: 0 = Not at all Trouble relaxin = Not at all Being so restless that it is hard to sit still: 0 = Not at all Becoming easily annoyed or irritable: 0 = Not at all Feeling afraid as if something awful might happen: 0 = Not at all Total NATA-7 score (0-4 normal; 5-9 mild; 10-14 moderate; 15-21 severe): 0 Source: Developed by Drs. Miguel L. DonBrina machado, Perfecto Anna and colleagues, with an educational mercy from [employer]. Physical exam (Primary Care) Vital Signs: Last Vital Signs Temp 97.7 F 12/05/24 10:29 Pulse 79 12/05/24 10:29 BP 138/76 12/05/24 10:29 Pulse Ox 99 12/05/24 10:29 Oxygen Delivery Method Room Air 12/05/24 10:29 BMI result Body Mass Index 30.5 Tobacco/Smoking Status: Tobacco use Status Tobacco use date assessed 12/05/24 12/05/24 10:32 Patient Tobacco Use Status Never used Tobacco 12/05/24 10:32 PHQ-9: PHQ-9 Score PHQ-9: Total score 0 12/05/24 10:32 Thrive Assessment: Date of Thrive Assessment Date Thrive assessed 12/05/24 12/05/24 10:32 Coding Level of Care Code Est Pt Level 4 (60671) Complex EM visit Add On G2211 Diagnoses Accelerated essential hypertension I10 Assessment & Plan Assessment & Plan (1) Accelerated essential hypertension: Code(s): I10 - Essential (primary) hypertension Category: Medical Plan: Lisinopril dosage increased to 10 mg once a day. Continue other medications. BP log reviewed Plan History of Present Illness The patient is a 79-year-old female presenting with hypertension management. Previously commenced on a small dose of lisinopril for her hypertension, she reports no adverse effects from this medication. However, she did experience adverse reactions to phosphomycin, which led to a change in her antibiotic regimen to trimethoprim. Her blood pressure readings have seen general improvement with some occasional high values. An increase in the lisinopril dosage to 10 mg is considered appropriate, as this is a common requirement for effective management in most cases. Initially started on a smaller dose, she will double up on her current supply of lisinopril to achieve a 10 mg dose until the new prescription is processed. The patient maintains an active and healthy lifestyle, regularly exercises on a treadmill, adheres to a nutritious diet with the assistance of [employer], and reports good overall health status. Social History - The patient exercises regularly on a treadmill. - The patient actively participates in a structured weight management program with [employer]. - The patient maintains a health-conscious diet. - The patient ensures a regular daily routine. Review of Systems Physical Exam General: Cooperative and healthy appearing Nutritional Appearance: Well nourished Orientation/consciousness: Patient oriented x3 Limitations: No limitations Head: Normal to inspection General: Appearance normal, both eyes and all related structures Neck: Normal visual inspection Chest: Normal palpation of entire chest wall Respiratory: Normal respiratory effort Neurology: Patient oriented x3 Results - Labs: Blood work was reported as fine with no concerning findings. Plan To manage essential hypertension, I advised increasing lisinopril to 10 mg as this is typically effective for most patients. She will double her current dose until a new prescription arrives, then switch to one 10 mg tablet daily. Con sidering her stable condition and lack of side effects, this adjustment should help with blood pressure control. I reassured her about her current regimen's safety. Her active lifestyle and diet are crucial to her treatment plan, and I will reassess in six months to ensure efficacy. Patient was informed and verbally consented to the use of an ambient scribe for clinic note documentation during this visit. Discussion Notes During the visit, I explained the importance of titrating lisinopril to an effective dose . We discussed that increasing to 10 mg is optimal for better hypertension management. I highlighted maintaining regular lifestyle interventions such as exercise and diet, which are beneficial for her condition. We agreed to reassess her management strategy in six months to ensure target blood pressure levels are met. I provided guidance on using her francia wisely and addressing medication concerns directly with the pharmacy for efficiency. Patient Instructions - Take lisinopril at a double dosage from current supply until new prescription is filled. - After obtaining a new supply, switch to taking one 10 mg lisinopril tablet daily. - Continue regular exercise on the treadmill. - Maintain a nutritious diet with the support of [employer]. - Contact the pharmacy directly for medication refills. - Return for follow-up in six months or sooner if issues arise. Medications: New lisinopril 10 mg PO DAILY 90 tabs 1RF Discontinued 2 lisinopril Discontinued Reason: Doctor's Order 5 mg PO DAILY 60 tabs 0RF
[2024-12-05 10:29] VITALS: BP 138/76; PULSE 79; TEMP 36.5; O2SAT 99; BMI 30.5
--- OUTSIDE RECORDS SUMMARY | 2024-12-05 11:53 | XMS_ITS ---
Author Organization [facility] [place] Address [address] [place] [address] Care Team Providers Care Filtration Plant Operator Name Role Phone Jed Portillo Primary Care Provider [phone] Polo Banda Unavailable [phone] Allergies Allergen (clinical drug ingredient) Drug/Non Drug [...] Ordered Date Performed Result Body Sit e 28554-XRRZOHI NAIL, 6 OR MORE 07/18/2024 N/A 04565-XETU SKIN LESIONS, OVER 4 07/18/2024 N/A Encounters Encounter Location Date Provider Diagnosis [facility] [place] [address] [place] [address] 07/18/2024 Polo Banda Atherosclerosis of [place] artery of both lower extremities, with unspecified presence of clinical manifestation I70.203 ; Tinea unguium B35.1 ; Pain in right toe(s) M79.674 and Pain in left toe(s) M79.675 Assessments Encounter Date Diagnosis (ICD Code) Assessment Notes Treatment Notes Treatment Clinical Notes Section Notes 07/18/2024 Atherosclerosis of [place] artery of both lower extremities, with unspecified presence of clinical manifestation (ICD-10 - I70.203) 07/18/2024 Tinea unguium (ICD-10 - B35.1) 07/18/2024 Pain in right toe(s) (ICD-10 - M79.674) 07/18/2024 Pain in left toe(s) (ICD-10 - M79.675) Plan Of Treatment Pending Test Test Name Order Date 69884-LBTPJKC NAIL, 6 OR MORE 07/18/2024 55643-UPAC SKIN LESIONS, OVER 4 07/18/20 24 Next Appt Details Follow Up: prn, Reason: Provider Name:Polo Banda , 02/13/2025 11:00:00 AM, [address] [facility], [address], [place], [address], Procedure Notes * Category Sub-Category Detail Notes [...] use of a nail nipper and/or dremel-type precision lens grinder, to a more viable healthy nail plate or bed tissue 6-10. Silver nitrate used for any petechial bleeding as necessary. Definitive antifungal treatment options have been reviewed and discussed with the patient. The patient chooses, no pharmaceutical tx - 14982 Keratoma Treatment Parring or Cutting o f Benign Hyperkeratotic Lesion(s) (-57) More than 4 Lesions - The Benign hyperkeratotic lesions, as described in exam, were pared, and/or cut utilizing a sterile 15 blade, tissue nippers, and/or dremel - 59348, Q8 Progress Notes * Roselia TINSLEY PDOB:[birth year] (79 yo F)Acc No.[id number]:07/18/2024 Progress Note Patient:?ALIVNA Roselia P Provider:?Polo Banda DPM :1945???Age:79 Y???Sex:Female D ate:07/18/2024 Address:[address] [place] [id number] Pcp:Vincent Garcia MD Subjective: * Chief Complaints: [...] lifted surgery 2014 * Hospitalization/Major Diagno stic Procedure:?[facility] [place] Xrays left foot 07/01/17 * Family History:?Mother: [...] Assessment: 1.?Tinea unguium - B35.1???2 .?Atherosclerosis of [place] artery of both lower extremities, with unspecified presence of clinical manifestation - I70.203 (Primary)???3.?Pain in right toe(s) - M79.674???4.?Pain in left toe(s) - M79.675??? Plan: * Treatment: 2.?Tinea unguium?Procedure: 17245-XHFISAN NAIL, 6 OR MORE * Procedures:?Debride Nail [...] use of a nail nipper and/or dremel-type precision lens grinder, to a more viable healthy nail plate or bed tissue 6-10. Silver nitrate used for any petechial bleeding as necessary. Definitive antifungal treatment options have been reviewed and discussed with the patient. The patient chooses, no pharmaceutical tx - 69144.?Keratoma Treatment:?Parring or Cutting of Benign Hyperkeratotic Lesion(s)?(-57) More than 4 Lesions - The Benign hyperkeratotic lesions, as described in exam, were pared, and/or cut utilizing a sterile 15 blade, tissue nippers, and/or dremel - 16523, Q8.? * Procedure Codes:?15963 DEBRI DE NAIL, 6 OR MORE, Modifiers: XS 92033 TRIM SKIN LESIONS, OVER 4, Modifiers: XS , Q8 * Follow Up:?prn * Images: * Sign off status: Completed true * Provider:?Polo Banda DPM Date:?2023 Generated for Tisha head/Jag/Nancy on:?12/05/2024 11:53 AM EDT History and Physical Notes * [...]
--- OUTSIDE RECORDS SUMMARY | 2024-12-05 11:53 | XMS_ITS | Encounter Summary ---
Author Organization [facility] Address [address] [place] [address] Care Team Providers Care Business Continuity Manager Name Role Phone Vincent Garcia MD Primary Care Provider [phone] Encounter Details Date Type Department Care Team (Late st Contact Info) Description 09/02/2024 Lab Requisition [facility] [address] [place] [id number] Rashida Velez MD [address] [address] Dysuria Social History Tobacco Use Types Packs/Day [...] complex(A) SARA 09/03/2024 8:[address] [facility] Comment: This is an edited [...] - G ENERAL ORDERABLES Final Result [facility] [address] [place] [address], documented in this encounter Visit Diagnoses Diagnosis Dysuria documented in this encounter Care Teams Business Continuity Manager Relationship Specialty Start Date End Date Vincent Garcia MD [address] [place] [address] Dr Sweetie [place] PCP - General Internal Medicine 12/13/18 documented as of this encounter
--- OUTSIDE RECORDS SUMMARY | 2024-12-05 11:53 | XMS_ITS | Patient Health Record ---
Author Organization [facility] Address [address] [place] [address] Care Team Providers Care Manager Hair Name Role Phone Jed Portillo Primary Care Provider [phone] Polo Banda Unavailable [phone] Allergies Allergen (clinical drug ingredient) Drug/Non Drug Allergy documented on EMR Reaction Allergy Type Onset Date Status anesthesia (uncoded) Unknown Allergy Active meperidine Demerol nausea Drug Allergy Active Seasonale Unknown Drug Allergy Active morphine Morphine nausea Drug Allergy Active Reason For Referral No Information Medications Medication SIG (Take, Route, Frequency, Duration) Notes Start Date End Date Status Trospium Chloride Ac tive Omeprazole Active Keflex Not-Taking Gabapentin Active Bioflex Not-Taking Flonase Active Aspirin 81 MG 1 tablet Orally Once a day Not-Taking diazePAM 2 MG (Schedule IV Drug) T K 1 T PO QD PRN Oral for 30 PRN Active Trimethoprim Not-Raheem ing Biotin Active ASO Ankle/Foot Stablizing AFO As directed Wear Daily for as needed 11/29/2018 Not-Taking Azelastine HCl Activ e oxyBUTYnin Not-Takin g Maia Active Cefpodoxime Proxetil Not-Taking Fosfomycin Tromethamine 3 GM as directed Orally Active PriLOSEC daily Active Pravastatin Sodium 40 MG 1 tablet Orally Once a day Active Immunizations Vaccine Route Administration Date Status Comme nts COVID-19 Pfizer BioNTech Vaccine Unknown 11/08/2020 Adm inistered COVID-19 Pfizer BioNTech Vaccine Unknown 11/29/2020 Adm inistered Influenza Unknown 05/09/2021 Administered Social History Tobacco Use: Social History Observation Description Date Details (start date - stop date) Never Smoker NA - NA Tobacco use other than smoking: Question Answer Notes Are you an other tobacco user? No Tobacco Control (Standard) Question Answer Notes Tobacco use: Nonsmoker Additional Findings: Tobacco non-user Current no nsmoker AUDIT-C (Standard) Question Answer Notes Did you have a drink containing alcohol in the p ast year? No Points 0 Interpretation Negative Problems Problem Type SNOMED Code ICD Code Onset Dates Problem Status W/U Status Risk Notes Problem Atherosclerosis of [place] arteries of the extremities (361737264752789) Atherosclerosis of [place] artery of both lower extremities, with unspecified presence of clinical manifestation (I70.203) Active confirmed Vital Signs Blood pressure diastolic 85 mm Hg 11/14/2024 Height 5ft 2in in 11/14/2024 Blood pressure systolic 133 mm Hg 11/14/2024 Weight 166 lbs 11/14/2024 BMI 30.36 kg/m2 11/14/2024 Procedures Procedure Date Ordered Date Performed Result Body Sit e 41084-FKWAQTA NAIL, 6 OR MORE 03/28/2024 N/A 04973-ITBN SKIN LESIONS, 2 TO 4 03/28/2024 N/A 46943-PDGFUQP NAIL, 6 OR MORE 07/18/2024 N/A 81107-MWGE SKIN LESIONS, OVER 4 07/18/2024 N/A 74521-TYBEOEI NAIL, 6 OR MORE 11/14/2024 N/A 82881-OMBT SKIN LESIONS, OVER 4 11/14/2024 N/A Encounters Encounter Location Date Provider Diagnosis [facility] [address] 03/28/2024 Polo Solo Atherosclerosis of [place] artery of both lower extremities, with unspecified presence of clinical manifestation I70.203 ; Tinea unguium B35.1 ; Pain in right toe(s) M79.674 and Pain in left toe(s) M79.[address] [facility] [address] 07/18/2024 Polo Solo Atherosclerosis of [place] artery of both lower extremities, with unspecified presence of clinical manifestation I70.203 ; Tinea unguium B35.1 ; Pain in right toe(s) M79.674 and Pain in left toe(s) M79.675 [facility] [place] [address] [address] 11/14/2024 Polo Banda Atherosclerosis of [place] artery of both lower extremities, with unspecified presence of clinical manifestation I70.203 ; Tinea unguium B35.1 ; Pain in right toe(s) M79.674 and Pain in left toe(s) M79.675 Assessments Encounter Date Diagnosis (ICD Code) Assessment Notes Treatment Notes Treatment Clinical Notes Section Notes 03/28/2024 Tinea unguium (ICD-10 - B35.1) 03/28/2024 Atherosclerosis of [place] artery of both lower extremities, with unspecified presence of clinical manifestation (ICD-10 - I70.203) 07/18/2024 Tinea unguium (ICD-10 - B35.1) 07/18/2024 Atherosclerosis of [place] artery of both lower extremities, with unspecified presence of clinical manifestation (ICD-10 - I70.203) 11/14/2024 Tinea unguium (ICD-10 - B35.1) 11/14/2024 Atherosclerosis of [place] artery of both lower extremities, with unspecified presence of clinical manifestation (ICD-10 - I70.203) 11/14/2024 Pain in right toe(s) (ICD-10 - M79.674) 03/28/2024 Pain in right toe(s) (ICD-10 - M79.674) 07/18/2024 Pain in right toe(s) (ICD-10 - M79.674) 03/28/2024 Pain in left toe(s) (ICD-10 - M79.675) 07/18/2024 Pain in left toe(s) (ICD-10 - M79.675) 11/14/2024 Pain in left toe(s) (ICD-10 - M79.675) Plan Of Treatment Pending Test Test Name Order Date 37448-AMBWEGF NAIL, 6 OR MORE 04/05/2018 62499-VPMWBPO NAIL, 6 OR MORE 08/02/2018 78874-CRRSDRH NAIL, 6 OR MORE 11/29/2018 14026-XGZIURF NAIL, 6 OR MORE 05/09/2019 42725-SMHCKDW NAIL, 6 OR MORE 09/05/2019 37891-UHBQQUF NAIL, 6 OR MORE 01/14/2021 51483-SUKYKZU NAIL, 6 OR MORE 05/27/2021 29264-UETDQPS NAIL, 6 OR MORE 10/07/2021 89546-HHSKWTT NAIL, 6 OR MORE 01/06/2022 67461-YBNZGZJ NAIL, 6 OR MORE 04/07/2022 75971-ZCVHHAL NAIL, 6 OR MORE 07/07/2022 21037-GRZUZOV NAIL, 6 OR MORE 08/10/2017 00480-VOSQAGE NAIL, 6 OR MORE 11/16/2017 29322-YTBHATM NAIL, 6 OR MORE 10/06/2022 31863-JLZYJOD NAIL, 6 OR MORE 02/11/2023 56955-RAYGMXN NAIL, 6 OR MORE 06/11/2023 81778-QDNXAKD NAIL, 6 OR MORE 09/24/2023 95581-FZHDEML NAIL, 6 OR MORE 03/28/2024 55428-YODZHUB NAIL, 6 OR MORE 07/18/2024 51473-ATRCWTF NAIL, 6 OR MORE 11/14/2024 77917-Xntricgl Plate 02/11/2023 89735-Rtapguxs Plate 06/11/2023 01433-Uxnmzmww Plate 11/16/2017 40917-HPBN SKIN LESIONS, OVER 4 07/18/20 24 26586-PNUC SKIN LESIONS, OVER 4 11/15/19 25 73436-FOAM SKIN LESIONS, 2 TO 4 03/28/20 24 71351-LMBI SKIN LESIONS, 2 TO 4 06/11/20 23 61489-SBDO SKIN LESIONS, 2 TO 4 09/24/19 24 42035-XCGI SKIN LESIONS, 2 TO 4 02/12/20 23 17948-IERK SKIN LESIONS, 2 TO 4 10/06/19 23 57762-GPJC SKIN LESIONS, 2 TO 4 07/07/20 22 51188 - Tenotomy, open flexor 12/02/2017 Next Appt Details Provider Name:Polo Banda , 02/13/2025 11:00:00 AM, [address] [facility] [address], [place], [address], Insurance Providers Payer Name Payer Address Payer Phone Subscriber Number Group Number Insured Name Patient Relationship to Insured Coverage Start Date Coverage End Date [employer] Medicare Adv-[id number] [address] [address] [place] [address] [phone] [id number] Jaskaran Daly Spouse - patient is the spouse of the insured Medical (General) History Medical History History ICD Code Arthritis Back,Hip,and Knee pain Gall bladder problems Reflux ( GERD) Measles Mumps Chicken pox Joint implants/screws Cholesterol Surgical History Surgery Date(Month/Year) knee surgery, left 1999 knee surgery, right 2001 bladder lifted surgery 2014 Hospitalization History Reason Date(Month/Year) [facility] [place] foot 07/01/17
--- OUTSIDE RECORDS SUMMARY | 2024-12-05 11:54 | XMS_ITS | Clinical Summary ---
Author Organization [address] Address [address] [place] [phone] Phone Care Team Providers Care Starcher And Tenter Range Feeder Name Role Phone Vincent Garcia MD Primary Care Provider [phone] Surgical History Surgery Date Site/Laterality Comments TOTAL KNEE ARTHROPLASTY PROCEDURE: [place] ARTHRP KNE CONDYLE&PLATU MEDIAL&LAT COMPARTMENTS; COMMENT: both [...] Vaccines (1 of 2) 1997 RSV Immunization Adult Patie nts (1 - 1-dose 75+ series) 2022 Cholesterol Screening (Lipid Panel) 08/03/2022 Depression Screening 08/03/2022 Falls Risk Assessment 08/03/2022 Hepatitis C Screening 08/03/2022 Medicare Annual Wellness Visit 08/03/2022 Osteoporosis Screening (Bone Density Screening) 08/03/2022 Social Influencers of Health Screening 08/03/2022 COVID-19 Vaccine ( - 2023-2 5 season) 2024 Influenza Vaccine (Season Ended) 2025 HIB Vaccines Aged Out No longer eligi [...] on patient's age to complete this topic Insurance [employer] MEDICARE Care Teams Starcher And Tenter Range Feeder Relationship Specialty Start Date End Date Vincent Garcia MD [address] [place] [address] Dr Sweetie [place] PCP - General Internal Medicine 12/13/18
--- OUTSIDE RECORDS SUMMARY | 2024-12-05 11:54 | XMS_ITS ---
Author Organization [facility] Address [address] [place] [address] Care Team Providers Care Rn Clinical Trials Name Role Phone Jed Portillo Primary Care Provider Polo Banda Unavailable [phone] Allergies Allergen (clinical drug ingredient) Drug/Non Drug [...] Duration) Notes Start Date End Date Status Gabapentin Active Flonase Active diazePAM 2 MG (Schedule IV Drug) T K 1 T PO QD PRN Oral for 30 PRN Active Biotin Active Azelastine HCl Activ e Bioflex Not-Taking Aspirin 81 MG 1 tablet Orally Once a day Not-Taking Trimethoprim Not-Raheem ing Maia Active Fosfomycin Tromethamine 3 GM as directed Orally Active ASO Ankle/Foot Stablizing AFO As directed Wear Daily for as needed 11/29/2018 Not-Taking oxyBUTYnin Not-Takin g Cefpodoxime Proxetil Not-Taking PriLOSEC daily Active Pravastatin Sodium 40 MG 1 tablet Orally Once a day Active Keflex Not-Taking Trospium Chloride Ac tive Omeprazole Active Social History Tobacco Use: Social History Observation [...] ast year? No Points 0 Interpretation Negative Vital Signs Height 5ft 2in in 11/14/2024 Weight 166 lbs 11/14/2024 BMI 30.36 kg/m2 11/14/2024 Blood pressure systolic 133 mm Hg 11/15/19 25 Blood pressure diastolic 85 mm Hg 025 Procedures Procedure Date Ordered Date Performed Result Body Sit e 76164-NPDESHH NAIL, 6 OR MORE 11/14/2024 N/A 91958-MYYI SKIN LESIONS, OVER 4 11/14/2024 N/A Encounters Encounter Location Date Provider Diagnosis [facility] [place] [address] [place] [address] [address] [place] [address] 11/14/2024 Polo Solo Atherosclerosis of [place] artery of both lower extremities, with unspecified presence of clinical manifestation I70.203 ; Tinea unguium B35.1 ; Pain in right toe(s) M79.674 and Pain in left toe(s) M79.675 Assessments Encounter Date Diagnosis (ICD Code) Assessment Notes Treatment Notes Treatment Clinical Notes Section Notes 11/14/2024 Atherosclerosis of [place] artery of both lower extremities, with unspecified presence of clinical manifestation (ICD-10 - I70.203) 11/14/2024 Tinea unguium (ICD-10 - B35.1) 11/14/2024 Pain in right toe(s) (ICD-10 - M79.674) 11/14/2024 Pain in left toe(s) (ICD-10 - M79.675) Plan Of Treatment Pending Test Test Name Order Date [id number] NAIL, 6 OR MORE 11/14/2024 40431-ZWAD SKIN LESIONS, OVER 4 11/15/19 25 Next Appt Details Follow Up: prn, Reason: Provider Name:Polo Banda , 02/13/2025 11:00:00 AM, [address] [facility], [address], [place], [address], Procedure Notes * Category Sub-Category Detail Notes Debride Nail 6-10 Nail debridement Due to the cl inical pathology outlined in the exam findings, performance of this nail treatment is medically necessary as its management by an unskilled/untrained nonprofessional would put this patients foot and overall health at risk. Therefore, debridement to affected nail(s), as described in exam ( TA, T1, T2, T4, T5, T6, T7 ), was performed exclusively by the physician of record to reduce/remove overall nail length, girth, thickness, subungual debris, and necrotic tissue, by manual and/or electrical means through the use of a nail nipper and/or dremel-type head grinder, to a more viable healthy nail plate or bed tissue 6-10 nails in total. Silver nitrate was used for any petechial bleeding as necessary. Definitive antifungal treatment options, both pharmaceutical and surgical, have been reviewed and discussed with the patient. The patient solely prefers the use of intermittent/as needed professional debridement services for their nail condition and understands the need for additional periodic treatments to maintain effectiveness in symptomatic relief - 04312 Keratoma Treatment Parring or Cutting o f Benign Hyperkeratotic Lesion(s) (-57) More than 4 Lesions - Due to the at risk nature of the patients medical condition as documented in the exam findings, performance of this keratoderma treatment is medically necessary as its management by an unskilled/untrained nonprofessional would put this patients foot and overall health at risk. Therefore, the benign hyperkeratotic lesions, ( 5 ) in total, locations as stated and described in the exam ( Medial, IPJ, TA, Medial, IPJ, T5, SUB MTH (s), 1, Left, Plantar, Heel(s), B/L ), were pared, and/or cut utilizing a sterile 15 blade, tissue nippers, and/or power dremel instrumentation by the physician of record - 69240, Q8 Progress Notes * ALVINAJaci MENDOZARoselia PDOB:[birth year] (79 yo F)Acc No.[id number]:11/14/2024 Progress Note Patient:Roselia NUÑEZ Provider:?Polo Banda DPM :1945???Age:79 Y???Sex:Female D ate:11/14/2024 Address:[address] [place] [id number] Pcp:Jed Portillo Subjective: * Chief Complaints: * ???At Risk FootcarePainful N ail(s) aggrevated by shoes and causing difficulty standing/walking. * HPI: ???At Risk footcare:?Pt States Last PCP Visit:?Date?10/31/2024 * ROS:?General/Constitutional:?Nausea?denies.?Vomiting?denies.?Hunger Thirst?denies.?Loss appetite?denies.?Chills?denies.?Fatigue?denies.?Fever?denies.?Night Sweats?denies.?Unexplained weight loss?denies.?Unexplained [...] lifted surgery 2014 * Hospitalization/Major Diagno stic Procedure:?[facility] Xrays left foot 07/01/17 * Family History:?Mother: dece ased, heart attack, diagnosed with Unspecified heart disease.?Father: , heart attack, diagnosed with Diabetic - NIDDM, Unspecified heart disease, Family history of arthritis.?Siblings: poor circulation, diagnosed with Other malignant neoplasm of unspecified site.?Spouse: alive.? * Social History:?Tobacco Use:?Tobacco use other than smoking?Are you an other tobacco user??No ?Tobacco Control (Standard)?Tobacco use:?Nonsmoker ?Additional Findings: Tobacco non-user?Current nonsmoker ???Drugs/Alcohol:?Drugs?Have you used drugs other than those for medical reasons in the past 12 months??No ???Miscellaneous:?Caffeine: yes, frequency:, 1-2 cups per day. ?Exercise: no. ?Marital status: . ?Occupation: retired. ???Drug/Alcohol:?AUDIT-C (Standard)?Did you have a drink containing alcohol in the past year??No ?Points?0 ?Interpretation?Negative * Medications:?TakingFosfomyci n Tromethamine 3 GM Packet as directed Orally Maia Azelastine HCl Biotin diazePAM 2 MG Tablet (Schedule IV Drug) TK 1 T PO QD PRN Oral , Notes to Pharmacist: PRNFlonase Gabapentin Omeprazole Trospium Chloride Pravastatin Sodium 40 MG Tablet 1 tablet Orally Once a day PriLOSEC , Notes to Pharmacist: dailyTaking Fosfomycin Tromethamine 3 GM Packet as directed Orally Taking Maia Taking Azelastine HCl Taking Biotin Taking diazePAM 2 MG Tablet (Schedule IV Drug) TK 1 T PO QD PRN Oral , Notes to Pharmacist: PRNTaking Flonase Taking Gabapentin Taking Omeprazole Taking Trospium Chloride Taking Pravastatin Sodium 40 MG Tablet 1 tablet Orally Once a day Taking PriLOSEC , Notes to Pharmacist: dailyNot- Taking/PRNKeflex Cefpodoxime Proxetil oxyBUTYnin ASO Ankle/Foot Stablizing AFO As directed Wear Daily Trimethoprim Aspirin 81 MG Tablet Delayed Release 1 tablet Orally Once a day Bioflex Medication List reviewed and reconciled with the patientNot-Taking/PRN Keflex Not-Taking/PRN Cefpodoxime Proxetil Not-Taking/PRN oxyBUTYnin Not-Taking/PRN ASO Ankle/Foot Stablizing AFO As directed Wear Daily Not-Taking/PRN Trimethoprim Not-Taking/PRN Aspirin 81 MG Tablet Delayed Release 1 tablet Orally Once a day Not-Taking/PRN Bioflex Medication List reviewed and reconciled with the patient * Allergies:?Demerol: nauseaan esthesiaMorphine: nauseaSeasonaleyes[Allergies Verified] Objective: * Vitals:?Ht: 5ft 2in, Wt: 166 , BMI: 30.36, Shoe size: 10, BP: 133/85 mm Hg, Ht- cm: 157.48 cm, Wt-k.3 kg. * Examination: ???Vascular: ?DP PULSES (B):? 0/4, B/L.?PT PULSES (B):? 0/4, B/L.?CAPILLARY FILL TIME:? delayed, all digits, B/L.?TROPHIC CONDITION-TEXTURE/ELASTICITY/TURGOR/HAIR GROWTH (B):? decreased,?with sparse to absent hair growth, B/L.?TEMPERTURE GRADIENT (C):? decreased, cool to cool, proximal to distal, B/L.?PIGMENTATION:? rubrous, Forefoot, B/L.?EDEMA (C):?absent, B/L.?CLAUDICATION (C):?denies, B/L.?REST PAIN:?denies, B/L.?Nails: ?NAILS are:?Elongated, overgrown, dystrophic, lytic, greater than 3mm thick, discolored and friable with crumbly malodorous subungual debris, with pain on palpation , TA, T1, T2, T4, T5, T6, T7, all other nails not described with characteristics as possessing mycosis are elongated, overgrown, and dystrophic.?Dermatologic: ?SKIN FINDINGS:? Skin exam reveals Keratotic lesion(s) located at,?Medial,?IPJ,?TA,?Medial,?IPJ,?T5,?SUB MTH (s),?1,?Left,?Plantar, Heel(s), B/L .? Assessment: * Assessment: 1.?Tinea unguium - B35.1???2 .?Atherosclerosis of [place] artery of both lower extremities, with unspecified presence of clinical manifestation - I70.203 (Primary)???3.?Pain in right toe(s) - M79.674???4.?Pain in left toe(s) - M79.675??? Plan: * Treatment: 2.?Tinea unguium?Procedure: 87108-DWYAZLS NAIL, 6 OR MORE * Procedures:?Debride Nail 6-10:?Nail debridement?Due to the clinical pathology outlined in the exam findings, performance of this nail treatment is medically necessary as its management by an unskilled/untrained nonprofessional would put this patients foot and overall health at risk. Therefore, debridement to affected nail(s), as described in exam (?TA,?T1,?T2,?T4,?T5,?T6,?T7?), was performed exclusively by the physician of record to reduce/remove overall nail length, girth, thickness, subungual debris, and necrotic tissue, by manual and/or electrical means through the use of a nail nipper and/or dremel-type head grinder, to a more viable healthy nail plate or bed tissue 6- 10 nails in total. Silver nitrate was used for any petechial bleeding as necessary. Definitive antifungal treatment options, both pharmaceutical and surgical, have been reviewed and discussed with the patient. The patient solely prefers the use of intermittent/as needed professional debridement services for their nail condition and understands the need for additional periodic treatments to maintain effectiveness in symptomatic relief - 50416.?Keratoma Treatment:?Parring or Cutting of Benign Hyperkeratotic Lesion(s)?(-57) More than 4 Lesions - Due to the at risk nature of the patients medical condition as documented in the exam findings, performance of this keratoderma treatment is medically necessary as its management by an unskilled/untrained nonprofessional would put this patients foot and overall health at risk. Therefore, the benign hyperkeratotic lesions, ( 5 ) in total, locations as stated and described in the exam (?Medial,?IPJ,?TA,?Medial,?IPJ,?T5,?SUB MTH (s),?1,?Left,?Plantar,?Heel(s),?B/L?), were pared, and/or cut utilizing a sterile 15 blade, tissue nippers, and/or power dremel instrumentation by the physician of record - 47738, Q8.? * Procedure Codes:?76447 DEBRI DE NAIL, 6 OR MORE, Modifiers: XS 59093 TRIM SKIN LESIONS, OVER 4, Modifiers: XS , Q8 * Follow Up:?prn * Images: * Sign off status: Completed true * Provider:?Polo Banda DPM Date:?2024 Generated for Tisha head/Jag/Nancy on:?12/05/2024 11:53 AM EDT History and Physical Notes * HPI (History of Present Illness) Category Sub-Category Detail Notes Category Not es At Risk footcare Pt States Last PCP Visit: Date: 5 Examination Category Sub-Category Detail Notes Category Not [...] , TA, T1, T2, T4, T5, T6, T7, all other nails not described with characteristics as possessing mycosis are elongated, overgrown, and dystrophic
--- OUTSIDE RECORDS SUMMARY | 2024-12-05 11:54 | XMS_ITS ---
Author Organization [facility] [place] Address [address] [place] [address] Care Team Providers Care Leaf Size Picker Name Role Phone Jed Portillo Primary Care Provider [phone] Polo Banda Unavailable [phone] Allergies Allergen (clinical drug ingredient) Drug/Non Drug [...] Ordered Date Performed Result Body Sit e 52874-MASFDPR NAIL, 6 OR MORE 03/28/2024 N/A 10892-UDGA SKIN LESIONS, 2 TO 4 03/28/2024 N/A Encounters Encounter Location Date Provider Diagnosis [facility] [place] [address] [place] [address] 03/28/2024 Polo Banda Atherosclerosis of [place] artery of both lower extremities, with unspecified presence of clinical manifestation I70.203 ; Tinea unguium B35.1 ; Pain in right toe(s) M79.674 and Pain in left toe(s) M79.675 Assessments Encounter Date Diagnosis (ICD Code) Assessment Notes Treatment Notes Treatment Clinical Notes Section Notes 03/28/2024 Atherosclerosis of [place] artery of both lower extremities, with unspecified presence of clinical manifestation (ICD-10 - I70.203) 03/28/2024 Tinea unguium (ICD-10 - B35.1) 03/28/2024 Pain in right toe(s) (ICD-10 - M79.674) 03/28/2024 Pain in left toe(s) (ICD-10 - M79.675) Plan Of Treatment Pending Test Test Name Order Date 40774-PHIQSAZ NAIL, 6 OR MORE 03/28/2024 89323-JAZH SKIN LESIONS, 2 TO 4 03/28/20 24 Next Appt Details Follow Up: prn, Reason: Provider Name:Polo Banda , 02/13/2025 11:00:00 AM, [address] [facility], [address], [place], [address], Procedure Notes * Category Sub-Category Detail Notes [...] as necessary. Patient chooses, no pharmaceutical tx (91014) Keratoma Treatment Parring or Cutting o f Benign Hyperkeratotic Lesion(s) 34865 (2-4 Lesions) - The Benign hyperkeratotic lesions, as described above were pared, and/or cut utilizing a sterile #15 blade, tissue nippers, and/or dremel, Q8 Progress Notes * Roselia TINSLEY PDOB:[birth year] (78 yo F)Acc No.[id number]:03/28/2024 Progress Note Patient:?Roselia Tinsley P Provider:?Polo Banda DPM :1945???Age:78 Y???Sex:Female D ate:03/28/2024 Address:[address] [place] [phone] Pcp:Vincent Garcia MD Subjective: * Chief Complaints: [...] lifted surgery 2014 * Hospitalization/Major Diagno stic Procedure:?[facility] Xrays left foot 07/01/17 * Family History:?Mother: [...] Assessment: 1.?Tinea unguium - B35.1?2.? Atherosclerosis of [place] artery of both lower extremities, with unspecified presence of clinical manifestation - I70.203 (Primary)?3.?Pain in right toe(s) - M79.674?4.?Pain in left toe(s) - M79.675? Plan: * Treatment: 2.?Tinea unguium?Procedure: 69693-XDLMHZL NAIL, 6 OR MORE * Procedures:?Debride Nail 6-10:?Nail debridement?Nail debridement performed extensively to reduce/remove overall nail length, girth, thickness, subungual debris, and necrotic tissue, by manual and electrical means through the use of a nail nipper and/or dremel, to more viable healthy nail plate or bed tissue 1-5. Silver nitrate used for any petechial bleeding as necessary. Patient chooses, no pharmaceutical tx (13303).?Keratoma Treatment:?Parring or Cutting of Benign Hyperkeratotic Lesion(s)?62676 (2-4 Lesions) - The Benign hyperkeratotic lesions, as described above were pared, and/or cut utilizing a sterile #15 blade, tissue nippers, and/or dremel, Q8.? * Procedure Codes:?44382 DEBRI DE NAIL, 6 OR MORE, Modifiers: XS 94946 TRIM SKIN LESIONS, 2 TO 4, Modifiers: [...]
--- OUTSIDE RECORDS SUMMARY | 2024-12-05 11:54 | XMS_ITS | Encounter Summary ---
Author Organization [facility] Address [address] [place] [address] Care Team Providers Care Senior Software Development Manager Name Role Phone Vincent Garcia MD Primary Care Provider [phone] Encounter Details Date Type Department Care Team (Late st Contact Info) Description 07/06/[address] [facility] - Main Lab [address] [facility] [place] [phone] Rickey Bearden MD [address] [facility] [address] [place] [address] Dysuria Social History Tobacco Use Types Packs/Day [...] cloacae complex(A) SARA 07/07/2024 9:28 AM EST [facility] [place] [facility] Comment: This is an edited result. [...] us Rickey Bearden MD LAB MICROBIOLOGY - [place] AL ORDERABLES Final Result [facility] [address] [place] [address], documented in this encounter Visit Diagnoses Diagnosis Dysuria documented in this encounter Care Teams Senior Software Development Manager Relationship Specialty Start Date End Date Vincent Garcia MD [address] [place] [address] Dr Sweetie [place] PCP - General Internal Medicine 12/13/18 documented as of this encounter
--- OUTSIDE RECORDS SUMMARY | 2024-12-05 11:54 | XMS_ITS | Encounter Summary ---
Author Organization [facility] Address [address] [place] [address] Care Team Providers Care Technical Editor Name Role Phone Vincent Garcia MD Primary Care Provider [phone] Encounter Details Date Type Department Care Team (Late st Contact Info) Description 08/16/2024 Lab Requisition [facility] - Main Lab [address] [facility] [place] [address] Tere Ambriz NP [address] [facility] [address] [place] [address] Dysuria Social History Tobacco Use Types Packs/Day [...] cloacae complex(A) SARA 08/17/2024 10:29 AM EST [facility] Comment: This is an edited result. Previous organism was Gram negative bacilli on 08/16/2024 at 1032 EST. Culture, Bacterial ID and Sensitivity Corynebacterium species(A) SARA 08/17/2024 10:29 AM EST [facility] Comment: The organism value [...] SARA <=20 ug/ml: Susceptible us Tere Ambriz CERTIFIED ANESTHESIOLOGIST ASSISTANT LAB MICROBIOLOGY - GENERA L ORDERABLES Final Result [facility] [address] [place] [address], documented in this encounter Visit Diagnoses Diagnosis Dysuria documented in this encounter Care Teams Technical Editor Relationship Specialty Start Date End Date Vincent Garcia MD [address] [place] [address] Dr Sweetie [place] PCP - General Internal Medicine 12/13/18 documented as of this encounter
== END 2024-12-05 11:07 | disposition home or self-care (01) ==
LOC: HO.HMCHD 10:12
PROVIDERS: PCP Internal Medicine; Visit Provider Internal Medicine
DX: I10 Essential (primary) hypertension (principal)

== ENCOUNTER → 2024-12-05 10:11 | Outpatient (BNVA) | payer MEDICARE, SELFPAY | PROVIDERS: PCP Internal Medicine; Visit Provider Internal Medicine | DX: I10 Essential (primary) hypertension (principal) | CPT/HCPCS: 96127; 99212 ==

== ENCOUNTER 2025-03-13 13:37 | Outpatient (AMB) | payer MEDICARE, SELFPAY ==
[2025-03-13 13:40] VITALS: BP 128/80; PULSE 83; TEMP 36.6; O2SAT 98; BMI 30.4
--- NOTE | 2025-03-13 13:40 | MHC.PC.OV ---
Vital Signs 03/13/25 13:40 Height 5 ft 2 in Weight 166 lb BMI 30.4 BP 128/80 Blood Pressure Location Lt brachial Position Sitting Pulse 83 Pulse Source Pulse Oximeter Temp 97.8 F Temp Source Axillary Pulse Oximetry (%) 98 Oxygen Delivery Method Room Air Intake Visit Reasons: Fell on Pavement 03/12/25 Telephone Plant Power Operator Required: No Accompanied by: Self / Same As Patient Allergies Anesthetics - Amide Type - Select A (Anesthetics - Amide Type) Adverse Reaction (Unknown, Verified 03/13/25 13:41) NAUSEA & VOMITING Anesthetics - Anna Type- Parabens (Anesthetics - Anna Type) Adverse Reaction (Unknown, Verified 03/13/25 13:41) NAUSEA & VOMITING Tobacco use date assessed: 03/13/25 Fall risk assessment: 1 Fall in past year Last assessed Fall Risk: 03/13/25 Dental Screening Dental Screen Date: 03/13/25 Did you have a dental visit in the last 12 months?: Yes Did you have a dental problem in the last 6 months where you did not have access to dental care?: No PFSH Medical History GERD (gastroesophageal reflux disease) Accelerated essential hypertension Surgical History History of colonoscopy (~01/06/14) Family History Father Heart problem Cardiomyopathy Mother CHF (congestive heart failure) Heart problem Social History Housing: House Alcohol intake: never Patient Tobacco Use Status: Never used Tobacco e-Cigarette/Vaping Use: Never Used service: No Current occupational status: retired Cognitive needs: No Hearing needs: Yes (b/l hearing aids) Vision needs: Yes (reading glasses) Questionnaire PHQ-9 Over the last 2 weeks, how often have you been bothered by any of the following problems? 1. Little interest or pleasure in doing things: not at all 2. Feeling down, depressed, or hopeless: not at all 3. Trouble falling or staying asleep, or sleeping too much: not at all 4. Feeling tired or having little energy: not at all 5. Poor appetite or overeating: not at all 6. Feeling bad about yourself - or that you are a failure or have let yourself or your family down: not at all 7. Trouble concentrating on things, such as reading the newspaper or watching television: not at all 8. Moving or speaking so slowly that other people could have noticed. Or the opposite - being so fidgety or restless that you have been moving around a lot more than usual: not at all 9. Thoughts that you would be better off or of hurting yourself in some way: not at all Total score: 0 Source: Developed by Drs. Miguel Ochoa, Birna Recinos, Perfecto Anna and colleagues, with an educational mercy from [employer]. Thrive Questionnaire Date Thrive assessed: 03/13/25 I am a: Patient Within the past 12 months, did the food you bought not last and you didn't have the money to get more?: Never true Within the past 12 months, did you worry whether your food would run out before you got money to buy more?: Never true Do you have trouble paying for medicines?: No Do you have trouble getting transportation to medical appointments?: No Do you have trouble paying your heating and electricity bill?: No Do you have trouble taking care of your child, family member or friend?: No Do you have trouble with day-to-day activities such as bathing, preparing meals, shopping, managing finances, etc.?: No Are you currently unemployed and looking for a job?: No Are you interested in more education?: No THRIVE Score: 0 AUDIT C Alcohol Use Questionnaire (AUDIT-C) 1. How often do you have a drink containing alcohol?: Never 3. How often do you have six or more drinks on one occasion?: Never Total Score: 0 NATA-7 AMB Questionnaire NATA-7 Date NATA - 7 assessed: 03/13/25 Feeling nervous, anxious, or on edge: 0 = Not at all Not being able to stop or control worryin = Not at all Worrying too much about different things: 0 = Not at all Trouble relaxin = Not at all Being so restless that it is hard to sit still: 0 = Not at all Becoming easily annoyed or irritable: 0 = Not at all Feeling afraid as if something awful might happen: 0 = Not at all Total NATA-7 score (0-4 normal; 5-9 mild; 10-14 moderate; 15-21 severe): 0 Source: Developed by Drs. Miguel Ochoa, Brina Recinos, Perfecto Anna and colleagues, with an educational mercy from [employer]. Physical exam (Primary Care) Vital Signs: Last Vital Signs Temp 97.8 F 03/13/25 13:40 Pulse 83 03/13/25 13:40 BP 128/80 03/13/25 13:40 Pulse Ox 98 03/13/25 13:40 Oxygen Delivery Method Room Air 03/13/25 13:40 BMI result Body Mass Index 30.4 Tobacco/Smoking Status: Tobacco use Status Tobacco use date assessed 03/13/25 03/13/25 13:42 Patient Tobacco Use Status Never used Tobacco 03/13/25 13:42 e-Cigarette/Vaping Use Never Used 03/13/25 13:42 PHQ-9: PHQ-9 Score PHQ-9: Total score 0 03/13/25 13:42 Thrive Assessment: Date of Thrive Assessment Date Thrive assessed 03/13/25 03/13/25 13:42 Coding Level of Care Code Est Pt Level 4 (12705) Complex EM visit Add On G2211 Diagnoses Syncope R55 Assessment & Plan Assessment & Plan (1) Syncope: Code(s): R55 - Syncope and collapse Plan History of Present Illness - The patient is a 79-year-old female presenting with a fall with head and hip impact. - The patient reports experiencing a fall after feeling lightheaded and losing balance while walking at a baseball tournament. - She bumped her head and experienced soreness on the side, but there was no bleeding or bruising observed. - The patient has a history of allergic rhinitis, for which she was taking Flonase and azetylcysteine, but experienced slight headaches and nasal congestion. - She has been experiencing back pain, for which she received a steroid injection in July and is scheduled for another in March. Social History - The patient engages in morning stretches as part of her daily routine. Review of Systems - Neurological: Reports slight headaches and lightheadedness. Denies double vision or dizziness. - Musculoskeletal: Reports back pain and soreness on the side after fall. Denies bruising or bleeding. - Cardiovascular: Denies abnormal blood pressure readings. - Respiratory: Reports nasal congestion. Denies dyspnea. Physical Exam General: Cooperative and healthy appearing Nutritional Appearance: Well nourished Orientation/consciousness: Patient oriented x3 Limitations: No limitations Head: Normal to inspection General: Appearance normal, both eyes and all related structures Neck: Normal visual inspection Chest: Normal palpation of entire chest wall Respiratory: N ormal respiratory effort Neurology: Patient oriented x3, reports feeling lightheaded and losing balance, slight headache, no double vision, no dizziness. Results Plan 1. Allergic Rhinitis - Continue current medications, Flonase and azetylcysteine, as tolerated. 2. Back Pain - Scheduled for a steroid injection in March for management of chronic back pain. 3. Fall With Head And Hip Impact - Monitor for any new symptoms or worsening of current symptoms. - Consider follow-up if symptoms persist or worsen. Discussion Notes The patient was advised to continue her current allergy medications, Flonase and azetylcysteine, as tolerated. She is scheduled for a steroid injection in March to manage her chronic back pain. It was recommended to monitor for any new symptoms or worsening of symptoms following her recent fall, and to consider follow-up if necessary. Patient Instructions - Continue taking Flonase and azetylcysteine as directed. - Attend scheduled steroid injection appointment in March. - Monitor for any new or worsening symptoms after the fall and seek follow-up care if needed. Medications: New diazepam 2 mg PO BEDTIME PRN 60 tabs 0RF anxiety
--- OUTSIDE RECORDS SUMMARY | 2025-03-13 14:48 | XMS_ITS | Encounter Summary ---
Author Organization [facility] Address [address] [place] [address] Care Team Providers Care Quality Assurance Advisor Name Role Phone Vincent Garcia MD Primary Care Provider [phone] Encounter Details Date Type Department Care Team (Late st Contact Info) Description 09/02/2024 Lab Requisition [facility] - Main Lab [address] [place] [id number] Rahsida Velez MD [address] [address] Dysuria Social History Tobacco Use Types Packs/Day [...] cloacae complex(A) SARA 09/03/2024 8:28 AM EST [facility] Comment: This is an edited result. Previous organism was Gram negative bacilli on 09/02/2024 at 1117 EST. Other Urine specimen from urethra / Unknown 09/01/2024 09/02/2024 10:55 AM EST Narrative Organism Antibiotic Method Susceptibility Enterobacter cloacae complex Amoxicillin/Clavulanate SARA >=32 ug/ml: Resistant Enterobacter cloacae complex Cefoxitin ASRA >=64 ug/ml: Resistant Enterobacter cloacae complex Ceftazidime [...] MICROBIOLOGY - G ENERAL ORDERABLES Final Result [facility] ([facility]) [facility] [address] [place] [address], documented in this encounter Visit Diagnoses Diagnosis Dysuria documented in this encounter Care Teams Quality Assurance Advisor Relationship Specialty Start Date End Date Vincent Garcia MD [address] [place] [address] Dr Sweetie [place] PCP - General Internal Medicine 12/13/18 documented as of this encounter
--- OUTSIDE RECORDS SUMMARY | 2025-03-13 14:48 | XMS_ITS | Patient Health Record ---
Author Organization [facility] Address [address] [place] [address] Care Team Providers Care Communications Systems Engineer Name Role Phone Jose (RETIRED) Vincent LEE Primary Care Provide r Unavailable Arpit Whitfield Jr Unavailable Reason For Referral No Information Medications Medication SIG (Take, Route, Frequency, Duration) Notes Start Date End Date Status Aspir-81 81 MG 1 tablet Orally Once a day Active PriLOSEC 20 MG 1 capsule Orally Onc e a day Active Pravastatin Sodium 40 MG 1 tablet Orally Once a day Active Multivitamin Orally Active Lisinopril 5 MG 1 tablet Orally Once a day Active Colyte with Flavor Packs 240 GM As directed Orally Over the specified time. for 1 day(s) 12/28/2013 Active Calcium Citrate 250 MG 4 tablets Orally Once a day Active Problems Problem Type SNOMED Code ICD Code Onset Dates Problem Status W/U Status Risk Notes Problem 304599402 Colon cancer screening (V76.51) Active confirmed Problem 486311022 Aspirin long-term use (V58.66) Active confirmed Plan Of Treatment Future Test Test Name Order Date COLONOSCOPY 12/28/2013 Insurance Providers Payer Name Payer Address Payer Phone Subscriber Number Group Number Insured Name Patient Relationship to Insured Coverage Start Date Coverage End Date [place] OF [place] [address] [place] [address] [phone] [id number] ASTRID TINSLEY Self - patient is the insured [facility] [address] [place], [place] [id number] [phone] [id number] ASTRID TINSLEY Self - patient is the insured Medical (General) History Medical History History ICD Code elevated Cholesterol seasonal allergies colon polyps esophageal reflux Surgical History Surgery Date(Month/Year) knee replacement bilateral cholecystectomy cataract surgery
--- OUTSIDE RECORDS SUMMARY | 2025-03-13 14:48 | XMS_ITS | Patient Health Record ---
[facility] Address [address] [place] [address] Care Team Providers Care Castings Drafter Name Role Phone Jed Portillo Primary Care Provider Polo Banda Unavailable [phone] Allergies Allergen (clinical drug ingredient) Drug/Non Drug Allergy documented on EMR Reaction Allergy Type Onset Date Status anesthesia (uncoded) Unknown Allergy Active meperidine Demerol nausea Drug Allergy Active Seasonale Unknown Drug Allergy Active morphine Morphine nausea Drug Allergy Active Reason For Referral No Information Medications Medication SIG (Take, Route, Frequency, Duration) Notes Start Date End Date Status Omeprazole Active Bioflex Not-Taking Trospium Chloride Ac tive Pravastatin Sodium 40 MG 1 tablet Orally Once a day Active Biotin Active Cefpodoxime Proxetil Not-Taking diazePAM 2 MG (Schedule IV Drug) T K 1 T PO QD PRN Oral; Duration: 30 PRN Active oxyBUTYnin Not-Takin g Flonase Active ASO Ankle/Foot Stablizing AFO As directed Wear Daily; Duration: as needed 11/29/2018 Not-Taking Gabapentin Active Aspirin 81 MG 1 tablet Orally Once a day Not-Taking PriLOSEC daily Active Lisinopril 10 MG 1 tablet Orally Once a day Active Trimethoprim Active Maia Active Fosfomycin Tromethamine 3 GM as directed Orally Not-Takin g Azelastine HCl Activ e Keflex Not-Taking Immunizations Vaccine Route Administration Date Status Comme nts COVID-19 Pfizer BioNTech Vaccine Unknown 11/08/2020 Adm inistered COVID-19 Pfizer BioNTech Vaccine Unknown 11/29/2020 Adm inistered Influenza Unknown 05/09/2021 Administered Influenza Unknown 05/31/2024 Administered Social History Tobacco Use: Social History [...] Problem Status W/U Status Risk Notes Problem Bilateral atherosclerosis of arteries of lower limbs (disorder) ([id number] ) Atherosclerosis of [place] artery of both lower extremities, with unspecified presence of clinical manifestation (I70.203) Active confirmed Vital Signs Blood pressure diastolic 69 mm Hg 02/13/2025 Height 5ft 2in in 02/13/2025 Blood pressure systolic 127 mm Hg 02/13/2025 Weight 165 lbs 02/13/2025 BMI 30.18 kg/m2 02/13/2025 Procedures Procedure Date Ordered Date Performed Result Body Sit e 42165-KLTSKHS NAIL, 6 OR MORE 03/28/2024 N/A 05623-BYML SKIN LESIONS, 2 TO 4 03/28/2024 N/A 23999-ASFQWEU NAIL, 6 OR MORE 07/18/2024 N/A 71061-VNYR SKIN LESIONS, OVER 4 07/18/2024 N/A 80929-FPPYLYS NAIL, 6 OR MORE 11/14/2024 N/A 45364-ZWMG SKIN LESIONS, OVER 4 11/14/2024 N/A 27859-NWVKGTV NAIL, 6 OR MORE 02/13/2025 N/A 50518-WQJB SKIN LESIONS, OVER 4 02/13/2025 N/A Encounters Encounter [facility] Date [facility] [address] 03/28/2024 Polo Banda Atherosclerosis of [place] artery of both lower extremities, with unspecified presence of clinical manifestation I70.203 ; Tinea unguium B35.1 ; Pain in right toe(s) M79.674 and Pain in left toe(s) M79.675 [facility] [address] [address] 07/18/2024 Polo Solo Atherosclerosis of [place] artery of both lower extremities, with unspecified presence of clinical manifestation I70.203 ; Tinea unguium B35.1 ; Pain in right toe(s) M79.674 and Pain in left toe(s) M79.[address] [address] 11/14/2024 Polo Solo Atherosclerosis of [place] artery of both lower extremities, with unspecified presence of clinical manifestation I70.203 ; Tinea unguium B35.1 ; Pain in right toe(s) M79.674 and Pain in left toe(s) M79.[address] [address] 02/13/2025 Polo Solo Atherosclerosis of [place] artery of both lower extremities, with unspecified presence of clinical manifestation I70.203 ; Tinea unguium B35.1 ; Pain in right toe(s) M79.674 and Pain in left toe(s) M79.675 Assessments Encounter Date Diagnosis (ICD Code) Assessment Notes Treatment Notes Treatment Clinical Notes Section Notes 03/28/2024 Tinea unguium (ICD-10 - B35.1) 03/28/2024 Atherosclerosis of [place] artery of both lower extremities, with unspecified presence of clinical manifestation (ICD-10 - I70.203) 07/18/2024 Tinea unguium (ICD-10 - B35.1) 07/18/2024 Atherosclerosis of [place] artery of both lower extremities, with unspecified presence of clinical manifestation (ICD-10 - I70.203) 11/14/2024 Tinea unguium (ICD-10 - B35.1) 11/14/2024 Atherosclerosis of [place] artery of both lower extremities, with unspecified presence of clinical manifestation (ICD-10 - I70.203) 02/13/2025 Tinea unguium (ICD-10 - B35.1) 02/13/2025 Atherosclerosis of [place] artery of both lower extremities, with unspecified presence of clinical manifestation (ICD-10 - I70.203) 11/14/2024 Pain in right toe(s) (ICD-10 - M79.674) 02/13/2025 Pain in right toe(s) (ICD-10 - M79.674) 03/28/2024 Pain in right toe(s) (ICD-10 - M79.674) 07/18/2024 Pain in right toe(s) (ICD-10 - M79.674) 03/28/2024 Pain in left toe(s) (ICD-10 - M79.675) 07/18/2024 Pain in left toe(s) (ICD-10 - M79.675) 02/13/2025 Pain in left toe(s) (ICD-10 - M79.675) 11/14/2024 Pain in left toe(s) (ICD-10 - M79.675) Plan Of Treatment Pending Test Test Name Order Date 51210-QLKAJWE NAIL, 6 OR MORE 04/05/2018 76456-JJRKHME NAIL, 6 OR MORE 08/02/2018 61091-FNQKRTL NAIL, 6 OR MORE 11/29/2018 99300-GGVTKGP NAIL, 6 OR MORE 05/09/2019 31345-QAKRZDB NAIL, 6 OR MORE 09/05/2019 82144-AVWVQGK NAIL, 6 OR MORE 01/14/2021 04041-DDKDFFE NAIL, 6 OR MORE 05/27/2021 98424-TBBRWFS NAIL, 6 OR MORE 10/07/2021 83378-EMIUCVE NAIL, 6 OR MORE 01/06/2022 55873-MKMSEKI NAIL, 6 OR MORE 04/07/2022 03087-XAVCYJI NAIL, 6 OR MORE 07/07/2022 90449-JHQRTTR NAIL, 6 OR MORE 08/10/2017 80725-LIFTTKG NAIL, 6 OR MORE 11/16/2017 92373-ECSMWTQ NAIL, 6 OR MORE 10/06/2022 02941-HYGWCNI NAIL, 6 OR MORE 02/11/2023 18352-ZATYUZM NAIL, 6 OR MORE 06/11/2023 08117-BRIPEUC NAIL, 6 OR MORE 09/24/2023 17825-BMHLQAT NAIL, 6 OR MORE 03/28/2024 68290-BOGHINX NAIL, 6 OR MORE 07/18/2024 60296-HRWFDKQ NAIL, 6 OR MORE 11/14/2024 94016-IFEYGAZ NAIL, 6 OR MORE 02/13/2025 01896-Gsgngkaq Plate 02/11/2023 23525-Hozxrfnn Plate 06/11/2023 20317-Ohmgctbo Plate 11/16/2017 21369-WCJM SKIN LESIONS, OVER 4 07/18/20 24 24257-BHPY SKIN LESIONS, OVER 4 02/14/20 25 87146-TPDG SKIN LESIONS, OVER 4 11/15/19 25 04005-JIHO SKIN LESIONS, 2 TO 4 03/28/20 24 77975-SMUB SKIN LESIONS, 2 TO 4 06/11/20 23 24795-XSBE SKIN LESIONS, 2 TO 4 09/24/19 24 68027-CAEW SKIN LESIONS, 2 TO 4 02/12/20 23 96770-CNUD SKIN LESIONS, 2 TO 4 10/06/19 23 30724-CAMB SKIN LESIONS, 2 TO 4 07/07/20 22 95739 - Tenotomy, open flexor 12/02/2017 Next Appt Details Provider Name:Polo Banda , 05/15/2025 10:45:00 AM, [address] [facility], [address], [place], [address], Insurance Providers Payer Name Payer Address Payer Phone Subscriber Number Group Number Insured Name Patient Relationship to Insured Coverage Start Date Coverage End Date [employer] Medicare [id number] [address] [address] [place] [address] [id number] Jaskaran Daly Spouse - patient is the spouse of the insured Medical (General) History Medical History History ICD Code Arthritis Back,Hip,and Knee pain Gall bladder problems Reflux ( GERD) Measles Mumps Chicken pox Joint implants/screws Cholesterol Surgical History Surgery Date(Month/Year) knee surgery, left 1999 knee surgery, right 2001 bladder lifted surgery 2014 Hospitalization History Reason Date(Month/Year) [facility] [place] 07/01/17
== END 2025-03-13 14:10 | disposition home or self-care (01) ==
LOC: HO.HMCHD 13:38
PROVIDERS: PCP Internal Medicine; Visit Provider Internal Medicine
DX: R55 Syncope and collapse (principal)

== ENCOUNTER → 2025-03-13 13:37 | Outpatient (BNVA) | payer MEDICARE, SELFPAY | PROVIDERS: PCP Internal Medicine; Visit Provider Internal Medicine | DX: R55 Syncope and collapse (principal) | CPT/HCPCS: 99212 ==

== ENCOUNTER 2025-03-17 14:32 | Outpatient (REF) | payer MEDICARE, SELFPAY ==
--- OUTSIDE RECORDS SUMMARY | 2025-03-17 14:34 | XMS_ITS | Patient Health Record ---
Author Organization [facility] Address [address] [place] [address] Care Team Providers Care Forepart Rounder Name Role Phone Jose (RETIRED) Vincent LEE [...] Problem Status W/U Status Risk Notes Problem [id number] Colon cancer screening (V76.51) Active confirmed Problem 841521770 Aspirin long-term use (V58.66) Active confirmed Plan Of Treatment Future Test Test Name Order Date COLONOSCOPY 12/28/2013 Insurance Providers Payer Name Payer Address Payer Phone Subscriber Number Group Number Insured Name Patient Relationship to Insured Coverage Start Date Coverage End Date [place] [address] [place] [address] [phone] [id number] ASTRID TINSLEY Self - patient is the insured [facility] [address] [place], [place] [id number] [phone] [id number] ASTRID TINSLEY Self - patient is the insured Medical (General) History Medical History History ICD Code elevated Cholesterol seasonal allergies colon polyps esophageal reflux Surgical History Surgery Date(Month/Year) knee replacement bilateral cholecystectomy cataract surgery
--- OUTSIDE RECORDS SUMMARY | 2025-03-17 14:34 | XMS_ITS | Encounter Summary ---
Author Organization [facility] Address [address] [place] [address] Care Team Providers Care Spring Production Supervisor Name Role Phone Vincent Garcia MD Primary Care Provider [phone] Encounter Details Date Type Department Care Team (Late st Contact Info) Description 09/02/2024 Lab Requisition [facility] - Main Lab [address] [place] [phone] Rashida Velez MD [address] [address] Dysuria Social History Tobacco Use Types Packs/Day [...] cloacae complex(A) SARA 09/03/2024 8:28 AM EST [facility] Comment: This is an [...] MICROBIOLOGY - G ENERAL ORDERABLES Final Result [facility]) [facility] [address] [place] [address], documented in this encounter Visit Diagnoses Diagnosis Dysuria documented in this encounter Care Teams Spring Production Supervisor Relationship Specialty Start Date End Date Vincent Garcia MD [address] [place] [address] Dr Sweetie [place] PCP - General Internal Medicine 12/13/18 documented as of this encounter
--- OUTSIDE RECORDS SUMMARY | 2025-03-17 14:34 | XMS_ITS | Patient Health Record ---
Author Organization [facility] Address [address] [place] [address] Care Team Providers Care Home Energy Inspector Name Role Phone Jed Portillo Primary Care Provider [phone] Polo Banda Unavailable [phone] Allergies Allergen (clinical drug ingredient) Drug/Non Drug [...] atherosclerosis of arteries of lower limbs (disorder) ([id number] ) Atherosclerosis of false pass artery of both lower extremities, with unspecified presence of clinical manifestation (I70.203) Active confirmed Vital Signs Blood pressure diastolic 69 mm Hg 02/13/2025 Height 5ft 2in in 02/13/2025 Blood pressure systolic 127 mm Hg 02/13/2025 Weight 165 lbs 02/13/2025 BMI 30.18 kg/m2 02/13/2025 Procedures Procedure Date Ordered Date Performed Result Body Sit e 02131-GQYRFZC NAIL, 6 OR MORE 03/28/2024 N/A 15150-RSDD SKIN LESIONS, 2 TO 4 03/28/2024 N/A 57628-GECNGHS NAIL, 6 OR MORE 07/18/2024 N/A 32001-RKHE SKIN LESIONS, OVER 4 07/18/2024 N/A 52822-WRUWSEF NAIL, 6 OR MORE 11/14/2024 N/A 29225-RYYS SKIN LESIONS, OVER 4 11/14/2024 N/A 10169-XWSUBSI NAIL, 6 OR MORE 02/13/2025 N/A 18485-EPXJ SKIN LESIONS, OVER 4 02/13/2025 N/A Encounters Encounter Location Date Provider Diagnosis [facility] [address] 03/28/2024 Polo Banda Atherosclerosis of false pass artery of both lower extremities, with unspecified presence of clinical manifestation I70.203 ; Tinea unguium B35.1 ; Pain in right toe(s) M79.674 and Pain in left toe(s) M79.675 [facility] [address] [address] 07/18/2024 Polo Solo Atherosclerosis of false pass artery of both lower extremities, with unspecified presence of clinical manifestation I70.203 ; Tinea unguium B35.1 ; Pain in right toe(s) M79.674 and Pain in left toe(s) M79.[address] [address] 11/14/2024 Polo Solo Atherosclerosis of false pass artery of both lower extremities, with unspecified presence of clinical manifestation I70.203 ; Tinea unguium B35.1 ; Pain in right toe(s) M79.674 and Pain in left toe(s) M79.[address] [address] 02/13/2025 Polo Solo Atherosclerosis of false pass artery of both lower extremities, with unspecified presence of clinical manifestation I70.203 ; Tinea unguium B35.1 ; Pain in right toe(s) M79.674 and Pain in left toe(s) M79.675 Assessments Encounter Date Diagnosis (ICD Code) Assessment Notes Treatment Notes Treatment Clinical Notes Section Notes 03/28/2024 Tinea unguium (ICD-10 - B35.1) 03/28/2024 Atherosclerosis of false pass artery of both lower extremities, with unspecified presence of clinical manifestation (ICD-10 - I70.203) 07/18/2024 Tinea unguium (ICD-10 - B35.1) 07/18/2024 Atherosclerosis of false pass artery of both lower extremities, with unspecified presence of clinical manifestation (ICD-10 - I70.203) 11/14/2024 Tinea unguium (ICD-10 - B35.1) 11/14/2024 Atherosclerosis of false pass artery of both lower extremities, with unspecified presence of clinical manifestation (ICD-10 - I70.203) 02/13/2025 Tinea unguium (ICD-10 - B35.1) 02/13/2025 Atherosclerosis of false pass artery of both lower extremities, with unspecified [...] Treatment Pending Test Test Name Order Date 38234-HHIKHVW NAIL, 6 OR MORE 04/05/2018 24294-IRFTZZC NAIL, 6 OR MORE 08/02/2018 53628-EMXUOEV NAIL, 6 OR MORE 11/29/2018 75830-KIUTASK NAIL, 6 OR MORE 05/09/2019 70187-QVSCZFH NAIL, 6 OR MORE 09/05/2019 38412-AUXVWPB NAIL, 6 OR MORE 01/14/2021 54779-MTNJIEV NAIL, 6 OR MORE 05/27/2021 40022-NGXSCSM NAIL, 6 OR MORE 10/07/2021 15136-JYKQSFM NAIL, 6 OR MORE 01/06/2022 60003-UKDEKSX NAIL, 6 OR MORE 04/07/2022 56609-INDOHEE NAIL, 6 OR MORE 07/07/2022 50384-HAHRURI NAIL, 6 OR MORE 08/10/2017 12230-WUCPAXO NAIL, 6 OR MORE 11/16/2017 37926-GOLUWDG NAIL, 6 OR MORE 10/06/2022 09898-GNZIPEW NAIL, 6 OR MORE 02/11/2023 70417-YIHFSWS NAIL, 6 OR MORE 06/11/2023 25883-NLNMTKV NAIL, 6 OR MORE 09/24/2023 97454-DXORCPR NAIL, 6 OR MORE 03/28/2024 96898-QTGHKLN NAIL, 6 OR MORE 07/18/2024 90213-FOOMGPH NAIL, 6 OR MORE 11/14/2024 06159-XPXXRSI NAIL, 6 OR MORE 02/13/2025 50965-Irjzcrqx Plate 02/11/2023 68637-Xrdgeodd Plate 06/11/2023 54394-Omdqejld Plate 11/16/2017 15157-BGZR SKIN LESIONS, OVER 4 07/18/20 24 49738-WTZY SKIN LESIONS, OVER 4 02/14/20 25 50188-FVZP SKIN LESIONS, OVER 4 11/15/19 25 08640-QEHU SKIN LESIONS, 2 TO 4 03/28/20 24 71089-PWYU SKIN LESIONS, 2 TO 4 06/11/20 23 83709-CWCC SKIN LESIONS, 2 TO 4 09/24/19 24 51661-MQNE SKIN LESIONS, 2 TO 4 02/12/20 23 64234-YJNW SKIN LESIONS, 2 TO 4 10/06/19 23 58555-ZZLU SKIN LESIONS, 2 TO 4 07/07/20 22 15903 - Tenotomy, open flexor 12/02/2017 Next Appt Details Provider Name:Polo Banda , 05/15/2025 10:45:00 AM, [address] [facility], [address], [place], [address], Insurance Providers Payer Name Payer Address Payer Phone Subscriber Number Group Number Insured Name Patient Relationship to Insured Coverage Start Date Coverage End Date [employer] Medicare Adv-[id number] [address] [address] [place] [address] [id number] Jaskaran Daly Spouse - patient is the spouse of the insured Medical (General) History Medical History History ICD Code Arthritis Back,Hip,and Knee pain Gall bladder problems Reflux ( GERD) Measles Mumps Chicken pox Joint implants/screws Cholesterol Surgical History Surgery Date(Month/Year) knee surgery, left 1999 knee surgery, right 2001 bladder lifted surgery 2014 Hospitalization History Reason Date(Month/Year) [facility] 07/01/17
== END 2025-03-17 14:33 | disposition home or self-care (01) ==
LOC: HO.MAMMO 14:32
PROVIDERS: PCP Internal Medicine; Visit Provider Internal Medicine
DX: Z12.31 Encounter for screening mammogram for malignant neoplasm of breast (principal)
CPT/HCPCS: 77063; 77067

== ENCOUNTER → 2025-03-17 14:45 | Outpatient (BNV) | payer MEDICARE, SELFPAY | PROVIDERS: PCP Internal Medicine; Visit Provider Radiology Body Imaging | DX: Z12.31 Encounter for screening mammogram for malignant neoplasm of breast (principal) | CPT/HCPCS: 77063; 77067 ==

== ENCOUNTER 2025-05-02 08:18 | Outpatient (REF) | payer MEDICARE, SELFPAY ==
--- OUTSIDE RECORDS SUMMARY | 2024-01-21 05:45 | XMS_ITS ---
Author Organization [facility] Address [address] [place] [address] Care Team Providers Care Telephonic Nurse Case Manager Name Role Phone Jed Portillo Primary Care Provider [phone] Polo Banda Unavailable [phone] Acharya Encounters Encounter Location Date Provider Diagnosis [address] [address] 01/21/2024 Polo Banda Plan Of Treatment Next Appt Details Provider Name:Polo Banda , 05/15/2025 10:45:00 AM, [address] [place] [address], [phone], Progress Notes * Roselia TINSLEY PDOB:[birth year] (79 yo F)Acc No.[id number]:01/21/2024 Progress Note Patient: Roselia WILSON Provider: Kimo Banda DPM :1945 A ge:78 Y S ex:Female Date:01/21/2024 Address:[address] [place] [phone] Pcp:Jed Portillo Subjective: * Chief Complaints: * [address] Acharya. * Medical History: Objective: * Vitals: Assessment: Plan: * Treatment: * Images: * The named appointment provid er may or may not be the originator of this progress note, and it is not deemed complete until electronically signed by the appointment provider. Sign off status: Pending * Provider: Kimo Banda DPM Date: 0 01/21/2024 Generated for Tisha Jenkins/Nancy on: 0 05/02/2025 08:54 AM EDT
--- OUTSIDE RECORDS SUMMARY | 2025-05-02 08:55 | XMS_ITS | Clinical Summary ---
Author Organization [address] Address [address] [place] [address] Phone Care Team Providers Care Memory Care Program Resident Name Role Phone Vincent Garcia MD Primary Care Provider [phone] Encounters Date Type Department Care Team Description 03/21/[address] [facility] - Main Lab [address] [facility] [place] [address] Chary Bee PA Dysuria from Last 3 Months Surgical History Surgery Date Site/Laterality Comments TOTAL KNEE ARTHROPLASTY PROCEDURE: ME ARTHRP KNE CONDYLE&PLATU MEDIAL&LAT COMPARTMENTS; COMMENT: both [...] series) 2022 Cholesterol Screening (Lipid Panel) 08/03/2022 Falls Risk Assessment 08/03/2022 Hepatitis C Screening 08/03/2022 Medicare Annual Wellness Visit 08/03/2022 Osteoporosis Screening (Bone Density Screening) 08/03/2022 Social Influencers of Health Screening 08/03/2022 Depression Screening 08/31/2024 COVID-19 Vaccine (2023-2 5 season) 2025 Influenza Vaccine (#1) 2025 HIB Vaccines Aged Out No longer [...] age to complete this topic Meningococcal B Vaccine Aged Out No l onger eligible based on patient's age to complete this topic RSV Immunization Patients Un jeri 20 months Aged Out No longer eligible b ased on patient's age to complete this topic Varicella Vaccines Aged Out No longer eligible based on patient's age to complete this topic Procedures Procedure Name Priority Date/Time Associated Diagnosis Comments BACTERIAL IDENTIFICATION AND SUSCEPTIBILITY, AEROBIC Routine 03/20/2025 12:00 AM EDT Dysuria from Last 3 Months Results * (ABNORMAL) Bacterial identification and susceptibility, aerobic (03/20/2025 12:00 AM EDT) Culture, Bacterial ID and Sensitivity Escherichia coli(A) SARA 03/23/2025 8:21 AM EDT [facility] Comment: This is an edited result. Previous organism was Gram negative bacilli on 03/21/2025 at 1054 EDT. Other Urine specimen from urethra / Unknown 03/20/2025 03/21/2025 9:39 AM EDT Narrative Organism Antibiotic Method Susceptibility Escherichia coli Amoxicillin/Clavulanate SARA <=2 ug/ml: Susceptible Escherichia coli Ampicillin/Sulbactam SARA <=2 ug/ml: Susceptible Escherichia coli Piperacillin/Tazobactam SARA <=4 ug/ml: Susceptible Escherichia coli Cefazolin (Urine) SARA <=1 ug/ml: Susceptible Escherichia coli Cefoxitin SARA <=4 ug/ml: Susceptible Escherichia coli Ceftazidime SARA <=0.5 ug/ml: Susceptible Escherichia coli Ceftriaxone SARA <=0.25 ug/ml: Susceptible Escherichia coli Cefepime SARA <=0.12 ug/ml: Susceptible Escherichia coli Meropenem SARA <=0.25 ug/ml: Susceptible Escherichia coli Amikacin SARA 2 ug/ml: Susceptible Escherichia coli Gentamicin SARA <=1 ug/ml: Susceptible Escherichia coli Ciprofloxacin SARA <=0.06 ug/ml: Susceptible Escherichia coli Levofloxacin SARA <=0.12 ug/ml: Susceptible Escherichia coli Nitrofurantoin SARA <=16 ug/ml: Susceptible Escherichia coli Trimethoprim/Sulfamethoxazole SARA >=320 ug/ml: Resistant us Chary FERRELL LAB MICROBIOLOGY - GENERAL ORDER SNOW Final Result [facility] [address] [place] [address], [place] [phone] from Last 3 Months Insurance [employer] MEDICARE Care Teams Memory Care Program Resident Relationship Specialty Start Date End Date Vincent Garcia MD [address] [place] [address] Dr Sweetie [place] PCP - General Internal Medicine 12/13/18
--- OUTSIDE RECORDS SUMMARY | 2025-05-02 08:55 | XMS_ITS | Encounter Summary ---
Author Organization [facility] Address [address] [place] [address] Care Team Providers Care Calcine Furnace Loader Name Role Phone Vincent Garcia MD Primary Care Provider Encounter Details Date Type Department Care Team (Late st Contact Info) Description 03/21/2025 Lab Requisition [facility] - Main Lab [address] [facility] [phone] Chary Bee, PA [address] [facility] [address] [place] [address] Dysuria Social History Tobacco Use Types Packs/Day [...] AEROBIC Routine 03/20/2025 12:00 AM EDT Dysuria documented in this encounter Results * (ABNORMAL) Bacterial identification and susceptibility, aerobic (03/20/2025 12:00 AM EDT) Culture, Bacterial ID and Sensitivity Escherichia coli(A) SARA 03/23/2025 8:21 AM EDT [facility] Comment: This is an edited [...] MICROBIOLOGY - GENERAL ORDER SNOW Final Result [facility] ([facility]) [facility] [address] [place] [address], documented in this encounter Visit Diagnoses Diagnosis Dysuria documented in this encounter Care Teams Calcine Furnace Loader Relationship Specialty Start Date End Date Vincent Garcia MD [address] [place] [address] Dr Sweetie [place] PCP - General Internal Medicine 12/13/18 documented as of this encounter
--- OUTSIDE RECORDS SUMMARY | 2025-05-02 08:55 | XMS_ITS | Encounter Summary ---
Author Organization [facility] Address [address] [place] [address] Care Team Providers Care Peanut Grader Name Role Phone Vincent Garcia MD Primary Care Provider [phone] Encounter Details Date Type Department Care Team (Late st Contact Info) Description 07/06/2024 Lab Requisition [facility] - Main Lab [address] [facility] [place] [phone] Rickey Bearden MD [address] [place] [address] Dysuria Social History Tobacco Use Types Packs/Day [...] cloacae complex(A) SARA 07/07/2024 9:28 AM EST [facility] Comment: This is an edited result. [...] <=0.06 ug/ml: Susceptible Enterobacter cloacae complex Levofloxacin SRAA <=0.12 ug/ml: Susceptible Enterobacter cloacae complex Nitrofurantoin SARA 32 ug/ml: Susceptible Enterobacter cloacae complex Trimethoprim/Sulfamethoxazo le SARA <=20 ug/ml: Susceptible us Rickey Bearden MD LAB MICROBIOLOGY - [facility] AL ORDERABLES Final Result [facility] ([facility]) [facility] [address] [place] [address], documented in this encounter Visit Diagnoses Diagnosis Dysuria documented in this encounter Care Teams Peanut Grader Relationship Specialty Start Date End Date Vincent Garcia MD [address] [place] [address] Dr Sweetie [place] PCP - General Internal Medicine 12/13/18 documented as of this encounter
--- OUTSIDE RECORDS SUMMARY | 2025-05-02 08:55 | XMS_ITS | Patient Health Record ---
Author [facility] Address [address] [place] [address] Care Team Providers Care Hoop Driving Machine Operator Helper Name Role Phone Jed Portillo Primary Care Provider [phone] Polo Banda Unavailable [phone] Allergies Allergen (clinical drug ingredient) Drug/Non Drug [...] Vaccine Route Administration Date Status Comme nts Influenza Unknown 05/09/2021 Administered Influenza Unknown 05/31/2024 Administered COVID-19 Pfizer BioNTech Vaccine Unknown 11/08/2020 Adm inistered COVID-19 Pfizer BioNTech Vaccine Unknown 11/29/2020 Adm inistered Social History Tobacco Use: Social History Observation [...] atherosclerosis of arteries of lower limbs (disorder) ([id number] ) Atherosclerosis of [place] artery of both lower extremities, with unspecified presence of clinical manifestation (I70.203) Active confirmed Vital Signs Blood pressure diastolic 69 mm Hg 02/13/2025 Height 5ft 2in in 02/13/2025 Blood pressure systolic 127 mm Hg 02/13/2025 Weight 165 lbs 02/13/2025 BMI 30.18 kg/m2 02/13/2025 Procedures Procedure Date Ordered Date Performed Result Body Sit e 61016-ZRIQJXN NAIL, 6 OR MORE 07/18/2024 N/A 55853-PPRK SKIN LESIONS, OVER 4 07/18/2024 N/A 93766-YQPSCLX NAIL, 6 OR MORE 11/14/2024 N/A 83735-ZFYD SKIN LESIONS, OVER 4 11/14/2024 N/A 54198-YLPCBOI NAIL, 6 OR MORE 02/13/2025 N/A 17909-IQIH SKIN LESIONS, OVER 4 02/13/2025 N/A Encounters Encounter Location Date Provider [facility] [address] [place] [address] 07/18/2024 Poloorin Banda Atherosclerosis of [place] artery of both lower extremities, with unspecified presence of clinical manifestation I70.203 ; Tinea unguium B35.1 ; Pain in right toe(s) M79.674 and Pain in left toe(s) M79.[address] [facility] [address] 11/14/2024 Polo Solo Atherosclerosis of [place] artery of both lower extremities, with unspecified presence of clinical manifestation I70.203 ; Tinea unguium B35.1 ; Pain in right toe(s) M79.674 and Pain in left toe(s) M79.675 [facility] [address] [facility] [address] [place] [address] 02/13/2025 Polo Banda Atherosclerosis of [place] artery of both lower extremities, with unspecified presence of clinical manifestation I70.203 ; Tinea unguium B35.1 ; Pain in right toe(s) M79.674 and Pain in left toe(s) M79.675 Assessments Encounter Date Diagnosis (ICD Code) Assessment Notes Treatment Notes Treatment Clinical Notes Section Notes 07/18/2024 Tinea unguium (ICD-10 - B35.1) 07/18/2024 Atherosclerosis of [place] artery of both lower extremities, with unspecified presence of clinical manifestation (ICD-10 - I70.203) 11/14/2024 Tinea unguium (ICD-10 - B35.1) 11/14/2024 Atherosclerosis of [place] artery of both lower extremities, with unspecified presence of clinical manifestation (ICD-10 - I70.203) 02/13/2025 Tinea unguium (ICD-10 - B35.1) 02/13/2025 Atherosclerosis of [place] artery of both lower extremities, with unspecified [...] Treatment Pending Test Test Name Order Date 84322-BCDQGKJ NAIL, 6 OR MORE 04/05/2018 40832-CUQWBTA NAIL, 6 OR MORE 08/02/2018 22175-KSJOBWE NAIL, 6 OR MORE 11/29/2018 04822-GMVAMXM NAIL, 6 OR MORE 05/09/2019 96110-VGNXJWS NAIL, 6 OR MORE 09/05/2019 01796-ISILPPJ NAIL, 6 OR MORE 01/14/2021 83151-XSMRCPS NAIL, 6 OR MORE 05/27/2021 33189-JNHAGHH NAIL, 6 OR MORE 10/07/2021 23605-MIGYBTQ NAIL, 6 OR MORE 01/06/2022 33686-ORNMBVY NAIL, 6 OR MORE 04/07/2022 35649-OLCCUON NAIL, 6 OR MORE 07/07/2022 66651-IVXISTO NAIL, 6 OR MORE 08/10/2017 60121-LGSAVFH NAIL, 6 OR MORE 11/16/2017 00561-BFKRFHQ NAIL, 6 OR MORE 10/06/2022 06073-UDLQZPD NAIL, 6 OR MORE 02/11/2023 67046-SNJRKGT NAIL, 6 OR MORE 06/11/2023 78874-AUXHRMO NAIL, 6 OR MORE 09/24/2023 40347-VDUGTZN NAIL, 6 OR MORE 03/28/2024 30882-SJDOXXX NAIL, 6 OR MORE 07/18/2024 03399-EEEUSLN NAIL, 6 OR MORE 11/14/2024 96912-FRWEISD NAIL, 6 OR MORE 02/13/2025 15099-Ntxigins Plate 02/11/2023 31521-Jduxtkfh Plate 06/11/2023 86988-Uvkteiqm Plate 11/16/2017 71006-UKSY SKIN LESIONS, OVER 4 07/18/20 24 74468-MQUT SKIN LESIONS, OVER 4 02/14/20 25 04749-GGAY SKIN LESIONS, OVER 4 11/15/19 25 09615-BIAU SKIN LESIONS, 2 TO 4 03/28/20 24 73405-UDTI SKIN LESIONS, 2 TO 4 06/11/20 23 59005-YIMF SKIN LESIONS, 2 TO 4 09/24/19 24 63537-ZPFE SKIN LESIONS, 2 TO 4 02/12/20 23 95595-LKHS SKIN LESIONS, 2 TO 4 10/06/19 23 27581-HJGR SKIN LESIONS, 2 TO 4 07/07/20 22 09085 - Tenotomy, open flexor 12/02/2017 Next Appt Details Provider Name:Polo Banda , 05/15/2025 10:45:00 AM, [address], [place], [address], Insurance Providers Payer Name Payer Address Payer Phone Subscriber Number Group Number Insured Name Patient Relationship to Insured Coverage Start Date Coverage End Date [employer] Medicare Adv-[id number] [address] [address] [place] [address] [id number] Jaskaran Daly Spouse - patient is the spouse of the insured Medical (General) History Medical History History ICD Code Arthritis Back,Hip,and Knee pain Gall bladder problems Reflux ( GERD) Measles Mumps Chicken pox Joint implants/screws Cholesterol Surgical History Surgery Date(Month/Year) knee surgery, left 1999 knee surgery, right 2001 bladder lifted surgery 2014 Hospitalization History Reason Date(Month/Year) [facility] Xrays left foot 07/01/17
--- OUTSIDE RECORDS SUMMARY | 2025-05-02 08:55 | XMS_ITS | Encounter Summary ---
Author Organization [facility] Address [address] [place] [address] Care Team Providers Care Christian Science Reader Name Role Phone Vincent Garcia MD Primary Care Provider [phone] Encounter Details Date Type Department Care Team (Late st Contact Info) Description 08/16/2024 Lab Requisition [facility] - Main Lab [address] [facility] [place] [phone] Tere Ambriz NP [address] [address] Dysuria Social History Tobacco Use Types Packs/Day [...] cloacae complex(A) SARA 08/17/2024 10:29 AM EST [facility] Comment: This is an edited result. Previous organism was Gram negative bacilli on 08/16/2024 at 1032 EST. Culture, Bacterial ID and Sensitivity Corynebacterium species(A) SARA 08/17/2024 10:29 AM EST [facility] Comment: The organism value for [...] SARA <=20 ug/ml: Susceptible us Tere Ambriz TOXICOLOGIST LAB MICROBIOLOGY - GENERA L ORDERABLES Final Result [facility] ([facility] [address] [place] [address], documented in this encounter Visit Diagnoses Diagnosis Dysuria documented in this encounter Care Teams Christian Science Reader Relationship Specialty Start Date End Date Vincent Garcia MD [address] [place] [address] Dr Sweetie [place] PCP - General Internal Medicine 12/13/18 documented as of this encounter
--- OUTSIDE RECORDS SUMMARY | 2025-05-02 08:55 | XMS_ITS | Encounter Summary ---
Author Organization [facility] Address [address] [place] [address] Care Team Providers Care Database Analyst Name Role Phone Vincent Garcia MD Primary Care Provider [phone] Encounter Details Date Type Department Care Team (Late st Contact Info) Description 09/02/2024 Lab Requisition [facility] - Main Lab [address] [place] [phone] Rashida Velez MD [address] [address] Dysuria Social History Tobacco Use Types Packs/Day [...] cloacae complex(A) SARA 09/03/2024 8:28 AM EST [facility] Comment: This is an edited result. [...] MICROBIOLOGY - G ENERAL ORDERABLES Final Result [facility] [address] [place] [address], documented in this encounter Visit Diagnoses Diagnosis Dysuria documented in this encounter Care Teams Database Analyst Relationship Specialty Start Date End Date Vincent Garcia MD [address] [place] [address] Dr Sweetie [place] PCP - General Internal Medicine 12/13/18 documented as of this encounter
--- OUTSIDE RECORDS SUMMARY | 2025-05-02 08:55 | XMS_ITS | Patient Health Record ---
Author Organization [facility] Address [address] [place] [address] Care Team Providers Care Industrial Education Teacher Name Role Phone Jose (RETIRED) Vincent LEE Primary Care Provide r Unavailable Arpit Whitfield Jr Unavailable [phone] Reason For Referral No Information Medications Medication [...] Problem Status W/U Status Risk Notes Problem [id number] Colon cancer screening (V76.51) Active confirmed Problem [id number] Aspirin long-term use (V58.66) Active confirmed Plan Of Treatment Future Test Test Name Order Date COLONOSCOPY 12/28/2013 Insurance Providers Payer Name Payer Address Payer Phone Subscriber Number Group Number Insured Name Patient Relationship to Insured Coverage Start Date Coverage End Date [place] [address] [facility] [address] [id number] ASTRID TINSLEY Self - patient is the insured [facility] [address] [place], [place] [id number] [phone] [id number] ASTRID TINSLEY Self - patient is the insured Medical (General) History Medical History History ICD Code elevated Cholesterol seasonal allergies colon polyps esophageal reflux Surgical History Surgery Date(Month/Year) knee replacement bilateral cholecystectomy cataract surgery
[2025-05-02 11:07] LABS: MANUAL DIFF FLAG NO
[2025-05-02 11:12] LABS: Hematocrit 41.6 % (37.0-47.0); Hemoglobin 13.6 g/dl (12.0-16.0); Imm Gran Abs Auto 0.03 X10*3/uL (0.00-0.03); Imm Gran Pct Auto 0.5 % (0.0-0.4); Lymphocytes Absolute Auto 1.5 X10*3/uL (1.2-4.9); Mean Corpuscular HGB Conc 32.7 g/dl (31.0-35.0); Mean Corpuscular Hemoglobin 29.7 pg (27.0-33.0); Mean Corpuscular Volume 90.8 fL (80.0-98.0); NRBC Abs Auto 0.000 X10*3/uL (0.0-0.012); NRBC Pct Auto 0.0 /100WBC (0.0-0.2); Platelet Count 265 X10*3/uL (160-400); Red Blood Count 4.58 X10*6/uL (4.20-5.50); White Blood Count 5.9 X10*3/uL (4.8-10.8)
[2025-05-02 12:52] LABS: Alanine Aminotransferase 36 U/L (0-31); Albumin Level 4.5 g/dL (3.5-5.0); Alkaline Phosphatase 86 U/L (39-117); Anion Gap 13 (12-20); Aspartate Amino Transferase 36 U/L (5-31); Blood Urea Nitrogen 23 mg/dL (9-16); Calcium 9.0 mg/dL (8.4-10.2); Carbon Dioxide 24 mmol/L (22-29); Chloride 100 mmol/L (96-108); Cholesterol 149 mg/dL (<200); Estimated Glomerular Filt Rate > 60; HDL Cholesterol 37 mg/dL (>40); Potassium 4.7 mmol/L (3.3-5.1); Sodium 132 mmol/L (135-145); Total Protein 7.2 g/dL (6.5-8.0); Triglycerides 136 mg/dL (<150)
[2025-05-07 15:34] LABS: Vitamin D 25-OH, D2 <4 ng/mL; Vitamin D 25-OH, D3 44 ng/mL; Vitamin D 25-OH, Total 44 ng/mL (30-100)
== END 2025-05-02 08:19 | disposition home or self-care (01) ==
LOC: HO.WFDLDS 08:18
PROVIDERS: Visit Provider Internal Medicine
DX: I10 Essential (primary) hypertension (principal); K21.9 Gastro-esophageal reflux disease without esophagitis; E28.39 Other primary ovarian failure; Z13.220 Encounter for screening for lipoid disorders; Z13.228 Encounter for screening for other metabolic disorders; Z13.29 Encounter for screening for other suspected endocrine disorder
CPT/HCPCS: 36415; 80053; 80061; 82306; 85025

== ENCOUNTER 2025-05-09 08:22 | Outpatient (AMB) | payer MEDICARE, SELFPAY ==
--- OUTSIDE RECORDS SUMMARY | 2024-01-21 05:45 | XMS_ITS ---
Author Organization [facility] Address [address] [place] [address] Care Team Providers Care Marine Engineering Technicians Name Role Phone Jed Portillo Primary Care Provider [phone] Polo Banda Unavailable [phone] Acharya Encounters Encounter Location Date Provider Diagnosis [address] [address] 01/21/2024 Polo Banda Plan Of Treatment Next Appt Details Provider Name:Polo Banda , 05/15/2025 10:45:00 AM, [address] [place] [address], [phone], Progress Notes * Roselia TINSLEY PDOB:[birth year] (79 yo F)Acc No.[id number]:01/21/2024 Progress Note Patient: Roselia WILSON Provider: Kimo Banda DPM :1945 A ge:78 Y S ex:Female Date:01/21/2024 Address:[address] [place] [phone] Pcp:Jed Portillo Subjective: * Chief Complaints: * [...] 01/21/2024 Generated for Tisha Jenkins/Nancy on: 0 05/09/2025 09:22 AM EDT
--- NOTE | 2025-05-09 08:26 | A.OFFPC_ITS ---
Vital Signs 05/09/25 08:31 05/09/25 09:11 Height 5 ft 2 in Weight 75.296 kg BMI 30.4 BP 148/84 H 124/80 Pulse 78 Pulse Source Pulse Oximeter Temp 97.5 F Temp Source Temporal Artery Scan Pulse Oximetry (%) 98 Oxygen Delivery Method Room Air Intake Visit Reasons: Annual PE Production Crew Supervisor Required: No Accompanied by: Self / Same As Patient Allergies Anesthetics - Amide Type - Select A (Anesthetics - Amide Type) Adverse Reaction (Unknown, Verified 05/09/25 08:27) NAUSEA & VOMITING Anesthetics - Anna Type- Parabens (Anesthetics - Anna Type) Adverse Reaction (Unknown, Verified 05/09/25 08:27) NAUSEA & VOMITING Tobacco use date assessed: 03/13/25 Dental Screening Dental Screen Date: 03/13/25 HPI HPI Comments History of Present Illness Details 79-year-old female with history of hyper tension, hyperlipidemia, recurrent UTI, GERD, lumbar spondylosis presenting to the office today for management of c hronic conditions, to establish care, and for annual physical exam. She currently lives at home with her and feels safe there. 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 Denies any alcohol use. No history of cigarette smoking. No drug use including marijuana. She has been following with weight watchers and is exercising with walking. Hypertension-blood pressure on recheck 124/80. Compliant with lisinopril 10 mg daily. Hyperlipidemia-on pravastatin 40 mg daily GERD-stable on omeprazole Lumbar radiculopathy/spondylosis-following with [facility]. Recent MRI of the lumbar spine showed advanced changes of multilevel lumbar spondylosis worst at L3-L4 and L4-L5 where there is severe narrowing of the canal, recesses, foramina. Also slight progression of spondylotic changes since prior exam. There is also a levoscoliosis. Incidentally seen are renal cysts. On gabapentin. Taking diazepam p.r.n. Anxiety-using diazepam as needed Recurrent UTI- follows with [facility]. Recent dx, treated with keflex. Intermittent symptoms occ irritation, cloudy urine. Dr Velez Concerns: As above Health maintenance: Last screening mammogram 02/2025 with 1 year follow-up advised. No evidence of malignancy Last DEXA scan 07/2023-normal, 10 year follow-up Last colonoscopy 12/2013, prn Annual eye exams Dentist twice annually Follows for routine skin checks Reviewed past medical, surgical, family, social history. ROS: General: No fevers, malaise, unintentional weight loss HEENT: No blurred vision, diplopia. No sore throat, nasal congestion, rhinorrhea, sinus pain, ear pain. No hearing loss Neck - no adenopathy Cardiovascular: No chest pain, palpitations, or leg edema Respiratory: No shortness of breath, wheezing, cough Breast: No pain, palpable lumps, nipple inversion GI: No dysphagia, odynophagia, globus sensation. No abdominal pain, nausea, vomiting, diarrhea, constipation, melena, hematochezia : No dysuria, hematuria, increased urinary frequency, decreased urinary output. LIFE ENRICHMENT MANAGER: No abn vaginal bleeding or discharge MSK: No myalgia, arthralgias. See HPI Neuro: No headaches, weakness, paresthesias Psych: no depression/anxiery. No AH/VH. No SI/HI Skin: No rashes or lesions EXAM: Constitutional - Awake and Alert, No apparent distress Eyes - PERRLA, EOMI. Anicteric Ears - external ears normal, canals clear, TMs intact and pearly lambert with good cone of light Nose- septum midline, nares clear, no sinus tenderness Mouth/throat- mucosa moist, tongue and uvula midline, no erythema/edema or tonsi llar adenopathy. Neck-trachea midline, thyroid symmetric without palpable nodules, no adenopathy Cardiovascular - S1S2, RRR, No edema Respiratory - Normal lung expansion, Normal respiratory effort, No respiratory distress, CTA bilaterally Gastrointestinal - NT / ND; +BS; No rebound or guarding - No CVA tenderness Extremities - no calf tenderness bilaterally, no swelling Musculoskeletal - Normal inspection, normal ROM Skin - Warm/Dry, no concerning lesions Neurological - Alert & oriented x3, CN II-XII in tact, 5/5 strength BUE and BLE, 2+ patellar reflexes, sensation intact Psychological - Appropriate affect [facility] History Recurrent UTI HTN (hypertension) HLD (hyperlipidemia) Renal cyst GERD (gastroesophageal reflux disease) Accelerated essential hypertension Surgical History S/P emergency S/P cholecystectomy H/O cataract extraction S/P total knee arthroplasty History of colonoscopy (~01/06/14) Family History Father Heart problem Cardiomyopathy Mother CHF (congestive heart failure) Heart problem Social History Housing: House Alcohol intake: never Patient Tobacco Use Status: Never used Tobacco e-Cigarette/Vaping Use: Never Used service: No Current occupational status: retired Cognitive needs: No Hearing needs: Yes (b/l hearing aids) Vision needs: Yes (reading glasses) Questionnaire Thrive Questionnaire Date Thrive assessed: 03/13/25 NATA-7 AMB Questionnaire NATA-7 Date NATA - 7 assessed: 03/13/25 Source: Developed by Drs. Miguel Ochoa, Brina Recinos, Perfecto Anna and colleagues, with an educational mercy from [employer]. Physical exam (Primary Care) Vital Signs: Last Vital Signs Temp 97.5 F 05/09/25 08:31 Pulse 78 05/09/25 08:31 BP 124/80 05/09/25 09:11 Pulse Ox 98 05/09/25 08:31 Oxygen Delivery Method Room Air 05/09/25 08:31 BMI result Body Mass Index 30.4 Tobacco/Smoking Status: Tobacco use Status Tobacco use date assessed 03/13/25 05/09/25 08:28 Patient Tobacco Use Status Never used Tobacco 05/09/25 08:28 e-Cigarette/Vaping Use Never Used 05/09/25 08:28 Thrive Assessment: Date of Thrive Assessment Date Thrive assessed 03/13/25 05/09/25 08:28 Coding Level of Care Code Est Pt Level 4 (72559) New Pt Prev Care >65yr (76816) Diagnoses Encounter for routine history and physical examination Z00.00 HLD (hyperlipidemia) E78.5 HTN (hypertension) I10 Recurrent UTI N39.0 Renal cyst N28.1 Assessment & Plan Assessment & Plan (1) Encounter for routine history and physical examination: Code(s): Z00.00 - Encounter for general adult medical examination without abnormal findings Plan: 79-year-old female presenting for annual physical exam. Plan as below (2) HLD (hyperlipidemia): Code(s): E78.5 - Hyperlipidemia, unspecified Category: Medical Plan: At goal. Continue statin and diet low in saturated fats and highly processed foods. (3) HTN (hypertension): Code(s): I10 - Essential (primary) hypertension Category: Medical Plan: Controlled on recheck. Continue lisinopril 10 mg daily (4) Recurrent UTI: Code(s): N39.0 - Urinary tract infection, site not specified Category: Medical Plan: Continue following with Urology and take trimethoprim as prescribed (5) Renal cyst: Code(s): N28.1 - Cyst of kidney, acquired Category: Medical Plan: Incidentally seen on lumbar MRI. Referred for ultrasound Plan Follow-up in the office in 6 months with labs completed prior to visit Reviewed labs from 05/02 with patient Continue with screening mammograms, DEXA scans. Colonoscopies p.r.n. Continue following for annual skin exams and use sun protection Annual eye exams Wear seat belt in car Recommend regular exercise and healthy diet Orders: Orders Basic Metabolic Panel 6 Months Z00.00 - Encounter for general adult medical examination without abnormal findings Lipid Panel 6 Months Z00.00 - Encounter for general adult medical examination without abnormal findings Liver Panel 6 Months Z00.00 - Encounter for general adult medical examination without abnormal findings US renal BI Today N28.1 - Cyst of kidney, acquired
[2025-05-09 08:31] VITALS: BP 148/84; PULSE 78; TEMP 36.4; O2SAT 98; BMI 30.4
[2025-05-09 09:11] VITALS: BP 124/80
--- OUTSIDE RECORDS SUMMARY | 2025-05-09 09:22 | XMS_ITS | Encounter Summary ---
Author Organization [facility] Address [address] [place] [address] Care Team Providers Care Cement Despatch Operator Name Role Phone Vincent Garcia MD Primary Care Provider [phone] Encounter Details Date Type Department Care Team (Late st Contact Info) Description 03/21/2025 Lab Requisition [facility] - Main Lab [address] [facility] [place] [phone] Chary Bee, PA [address] [facility] [address] [place] [address] Dysuria Social History Tobacco Use Types Packs/Day [...] Escherichia coli(A) SARA 03/23/2025 8:21 AM EDT [facility] ([facility] Comment: This is an edited result. [...] MICROBIOLOGY - GENERAL ORDER SNOW Final Result [facility] ([facility]) [facility] [address] [place] [address], documented in this encounter Visit Diagnoses Diagnosis Dysuria documented in this encounter Care Teams Cement Despatch Operator Relationship Specialty Start Date End Date Vincent Garcia MD [address] [place] [address] Dr Sweetie [place] PCP - General Internal Medicine 12/13/18 documented as of this encounter
--- OUTSIDE RECORDS SUMMARY | 2025-05-09 09:22 | XMS_ITS | Encounter Summary ---
Author Organization [facility] Address [address] [place] [address] Care Team Providers Care Collar Baster Name Role Phone Vincent Garcia MD Primary Care Provider [phone] Encounter Details Date Type Department Care Team (Late st Contact Info) Description 09/02/2024 Lab Requisition [facility] - Main Lab [address] [place] [phone] Rashida Velez MD [address] [address] Dysuria Social History Tobacco Use Types Packs/Day [...] cloacae complex(A) SARA 09/03/2024 8:28 AM EST [facility] ([facility]) [facility] Comment: This is an [...] MICROBIOLOGY - G ENERAL ORDERABLES Final Result [facility] ([facility]) [facility] [address] [place] [address], documented in this encounter Visit Diagnoses Diagnosis Dysuria documented in this encounter Care Teams Collar Baster Relationship Specialty Start Date End Date Vincent Garcia MD [address] [place] [address] Dr Sweetie [place] PCP - General Internal Medicine 12/13/18 documented as of this encounter
--- OUTSIDE RECORDS SUMMARY | 2025-05-09 09:22 | XMS_ITS | Patient Health Record ---
Author Organization [facility] Address [address] [place] [address] Care Team Providers Care Nicker Name Role Phone Jose (RETIRED) Vincent LEE [...] Problem Status W/U Status Risk Notes Problem [id number] Colon cancer screening (V76.51) Active confirmed Problem [id number] Aspirin long-term use (V58.66) Active confirmed Plan Of Treatment Future Test Test Name Order Date COLONOSCOPY 12/28/2013 Insurance Providers Payer Name Payer Address Payer Phone Subscriber Number Group Number Insured Name Patient Relationship to Insured Coverage Start Date Coverage End Date MEDICARE OF [place] [address] [place] [address] [phone] [id number] ASTRID TINSLEY Self - patient is the insured [facility] [address] [place], [place] [id number] [phone] [id number] ASTRID TINSLEY Self - patient is the insured Medical (General) History Medical History History ICD Code elevated Cholesterol seasonal allergies colon polyps esophageal reflux Surgical History Surgery Date(Month/Year) knee replacement bilateral cholecystectomy cataract surgery
--- OUTSIDE RECORDS SUMMARY | 2025-05-09 09:23 | XMS_ITS | Clinical Summary ---
Author Organization [address] Address [address] [place] [address] Phone Care Team Providers Care Agriculture Technician Name Role Phone Vincent Garcia MD Primary Care Provider [phone] Encounters Date Type Department Care Team Description 03/21/2025 Lab Requisition [facility] - Main Lab [address] [facility] [place] [address] Chary Bee PA Dysuria from Last 3 Months Surgical History Surgery Date Site/Laterality Comments TOTAL KNEE ARTHROPLASTY PROCEDURE: [place] ARTHRP KNE CONDYLE&PLATU MEDIAL&LAT COMPARTMENTS; COMMENT: both [...] Escherichia coli(A) SARA 03/23/2025 8:21 AM EDT [facility] Comment: This is an [...] MICROBIOLOGY - GENERAL ORDER SNOW Final Result [facility] ([facility]) [facility] [address] [place] [address], [place] [phone] from Last 3 Months Insurance [employer] MEDICARE Care Teams Agriculture Technician Relationship Specialty Start Date End Date Vincent Garcia MD [address] [place] [address] Dr Sweetie [place] PCP - General Internal Medicine 12/13/18
--- OUTSIDE RECORDS SUMMARY | 2025-05-09 09:23 | XMS_ITS | Encounter Summary ---
Author Organization [facility] Address [address] [place] [address] Care Team Providers Care Soil Expert Name Role Phone Vincent Garcia MD Primary Care Provider [phone] Encounter Details Date Type Department Care Team (Late st Contact Info) Description 08/16/[address] [facility] - Main Lab [address] [facility] [place] [phone] Tere Ambriz NP [address] [address] Dysuria Social History Tobacco Use Types Packs/Day [...] cloacae complex(A) SARA 08/17/2024 10:[address] [facility] Comment: This is an edited result. Previous organism was Gram negative bacilli on 08/16/2024 at 1032 EST. Culture, Bacterial ID and Sensitivity Corynebacterium species(A) SARA 08/17/2024 10:[address] [facility] Comment: The organism value for [...] SARA <=20 ug/ml: Susceptible us Tere Ambriz RADIATOR SPECIALIST LAB MICROBIOLOGY - GENERA L ORDERABLES Final Result [facility] ([facility] [address] [place] [address], documented in this encounter Visit Diagnoses Diagnosis Dysuria documented in this encounter Care Teams Soil Expert Relationship Specialty Start Date End Date Vincent Garcia MD [address] [place] [address] Dr Sweetie [place] PCP - General Internal Medicine 12/13/18 documented as of this encounter
--- OUTSIDE RECORDS SUMMARY | 2025-05-09 09:23 | XMS_ITS | Patient Health Record ---
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, with unspecified presence of clinical manifestation (I70.203) Active confirmed Vital Signs Blood pressure diastolic 69 mm Hg 02/13/2025 Height 5ft 2in in 02/13/2025 Blood pressure systolic 127 mm Hg 02/13/2025 Weight 165 lbs 02/13/2025 BMI 30.18 kg/m2 02/13/2025 Procedures Procedure Date Ordered Date Performed Result Body Sit e 42696-YEVEWCO NAIL, 6 OR MORE 07/18/2024 N/A 91971-DQSE SKIN LESIONS, OVER 4 07/18/2024 N/A 12203-RMOMJMF NAIL, 6 OR MORE 11/14/2024 N/A 09201-YAQD SKIN LESIONS, OVER 4 11/14/2024 N/A 66250-LPACPEF NAIL, 6 OR MORE 02/13/2025 N/A 01311-OQTG SKIN LESIONS, OVER 4 02/13/2025 N/A Encounters Encounter Location Date Provider Diagnosis [facility] [address] [place] [address] 07/18/2024 Poloorin Banda Atherosclerosis of turtle mountain artery of both lower extremities, with unspecified presence of clinical manifestation I70.203 ; Tinea unguium B35.1 ; Pain in right toe(s) M79.674 and Pain in left toe(s) M79.675 [facility] [address] 11/14/2024 Polo Solo Atherosclerosis of turtle mountain artery of both lower extremities, with unspecified presence of clinical manifestation I70.203 ; Tinea unguium B35.1 ; Pain in right toe(s) M79.674 and Pain in left toe(s) M79.675 [facility] [address] [facility] [address] [place] [address] 02/13/2025 Polo Banda Atherosclerosis of turtle mountain artery of both lower extremities, with unspecified presence of clinical manifestation I70.203 ; Tinea unguium B35.1 ; Pain in right toe(s) M79.674 and Pain in left toe(s) M79.675 Assessments Encounter Date Diagnosis (ICD Code) Assessment Notes Treatment Notes Treatment Clinical Notes Section Notes 07/18/2024 Tinea unguium (ICD-10 - B35.1) 07/18/2024 Atherosclerosis of turtle mountain artery of both lower extremities, with unspecified presence of clinical manifestation (ICD-10 - I70.203) 11/14/2024 Tinea unguium (ICD-10 - B35.1) 11/14/2024 Atherosclerosis of turtle mountain artery of both lower extremities, with unspecified presence of clinical manifestation (ICD-10 - I70.203) 02/13/2025 Tinea unguium (ICD-10 - B35.1) 02/13/2025 Atherosclerosis of turtle mountain artery of both lower extremities, with unspecified [...] Treatment Pending Test Test Name Order Date 43865-AGEUBWQ NAIL, 6 OR MORE 04/05/2018 05730-KPIJHFL NAIL, 6 OR MORE 08/02/2018 49226-URHIVZK NAIL, 6 OR MORE 11/29/2018 47084-SCDMYDQ NAIL, 6 OR MORE 05/09/2019 32918-QFDOAQX NAIL, 6 OR MORE 09/05/2019 63868-CIXPFAT NAIL, 6 OR MORE 01/14/2021 28512-BTPADTZ NAIL, 6 OR MORE 05/27/2021 83097-QLOCCMQ NAIL, 6 OR MORE 10/07/2021 02875-FQBCEQL NAIL, 6 OR MORE 01/06/2022 74305-VEHDCUL NAIL, 6 OR MORE 04/07/2022 96787-MNUYWGN NAIL, 6 OR MORE 07/07/2022 92925-DCJDGCF NAIL, 6 OR MORE 08/10/2017 06091-LXEFOJZ NAIL, 6 OR MORE 11/16/2017 02121-VZSELIR NAIL, 6 OR MORE 10/06/2022 95615-ACGZRHE NAIL, 6 OR MORE 02/11/2023 79091-OLAFGCK NAIL, 6 OR MORE 06/11/2023 40052-ZAVDXWL NAIL, 6 OR MORE 09/24/2023 24463-YZDEETW NAIL, 6 OR MORE 03/28/2024 71561-PZCQEXZ NAIL, 6 OR MORE 07/18/2024 22707-XTOUJGO NAIL, 6 OR MORE 11/14/2024 95062-GCIRUZU NAIL, 6 OR MORE 02/13/2025 12542-Yxblgvwk Plate 02/11/2023 83954-Psjeprfj Plate 06/11/2023 53133-Huigilmu Plate 11/16/2017 90586-RMER SKIN LESIONS, OVER 4 07/18/20 24 25320-YLXD SKIN LESIONS, OVER 4 02/14/20 25 28133-OYGY SKIN LESIONS, OVER 4 11/15/19 25 72757-FUIU SKIN LESIONS, 2 TO 4 03/28/20 24 60064-ZDRC SKIN LESIONS, 2 TO 4 06/11/20 23 02724-PEYR SKIN LESIONS, 2 TO 4 09/24/19 24 19037-FFYQ SKIN LESIONS, 2 TO 4 02/12/20 23 07549-DJJC SKIN LESIONS, 2 TO 4 10/06/19 23 72664-UGSQ SKIN LESIONS, 2 TO 4 07/07/20 22 10565 - Tenotomy, open flexor 12/02/2017 Next Appt Details Provider Name:Polo Banda , 05/15/2025 10:45:00 AM, [address], [place], [address], Insurance Providers Payer Name Payer Address Payer Phone Subscriber Number Group Number Insured Name Patient Relationship to Insured Coverage Start Date Coverage End Date [employer] Medicare [id number] [address] [address] [place] [phone] [id number] Jaskaran Daly Spouse - patient is the spouse of the insured Medical (General) History Medical History History ICD Code Arthritis Back,Hip,and Knee pain Gall bladder problems Reflux ( GERD) Measles Mumps Chicken pox Joint implants/screws Cholesterol Surgical History Surgery Date(Month/Year) knee surgery, left 1999 knee surgery, right 2001 bladder lifted surgery 2014 Hospitalization History Reason Date(Month/Year) [facility] Xrays left foot 07/01/17
--- OUTSIDE RECORDS SUMMARY | 2025-05-09 09:23 | XMS_ITS | Encounter Summary ---
Author Organization [facility] Address [address] [place] [address] Care Team Providers Care Application Support Engineer Name Role Phone Vincent Garcia MD Primary Care Provider [phone] Encounter Details Date Type Department Care Team (Late st Contact Info) Description 07/06/2024 Lab Requisition [facility] - Main Lab 299 [facility] [place] [phone] Rickey Bearden MD [address] [place] [address] Dysuria Social History Tobacco Use Types Packs/Day [...] cloacae complex(A) SARA 07/07/2024 9:28 AM EST [facility] ([facility] Comment: This is an edited result. [...] us Rickey Bearden MD LAB MICROBIOLOGY - [facility] AL ORDERABLES Final Result [facility] ([facility]) [facility] [address] [place] [address], documented in this encounter Visit Diagnoses Diagnosis Dysuria documented in this encounter Care Teams Application Support Engineer Relationship Specialty Start Date End Date Vincent Garcai MD [address] [place] [address] Dr Sweetie [place] PCP - General Internal Medicine 12/13/18 documented as of this encounter
== END 2025-05-09 09:11 | disposition home or self-care (01) ==
LOC: HO.HMCHD 08:23
PROVIDERS: PCP Internal Medicine; Visit Provider Physician Assistant
DX: Z00.00 Encounter for general adult medical examination without abnormal findings (principal); N28.1 Cyst of kidney, acquired; E78.5 Hyperlipidemia, unspecified; I10 Essential (primary) hypertension; N39.0 Urinary tract infection, site not specified

== ENCOUNTER → 2025-05-09 08:22 | Outpatient (BNVA) | payer MEDICARE, SELFPAY | PROVIDERS: PCP Internal Medicine; Visit Provider Physician Assistant | DX: Z00.01 Encounter for general adult medical examination with abnormal findings (principal); E78.5 Hyperlipidemia, unspecified; N39.0 Urinary tract infection, site not specified; N28.1 Cyst of kidney, acquired; I10 Essential (primary) hypertension | CPT/HCPCS: 99212; 99397 ==

== ENCOUNTER 2025-06-12 12:06 | Outpatient (REF) | payer MEDICARE, SELFPAY ==
--- NOTE | ~2025-06-12 | US_ITS ---
EXAMINATION: US KIDNEY BILATERAL HISTORY: N28.1 - Cyst of kidney, acquired TECHNIQUE: Real-time grayscale ultrasound imaging of the kidneys was performed and images were reviewed. COMPARISON: There are no prior studies available for comparison. FINDINGS: Right kidney: The right kidney measures 10.6 x 4.4 x 4.8 cm. Renal parenchymal echotexture and thickness are normal. There are no masses. There is slight fullness of the renal pelvis. There is no hydronephrosis or renal calculi. Left Kidney: The left kidney measures 11.4 x 4.9 x 5.5 cm. Renal parenchymal echotexture and thickness are normal. There is a 1.5 x 1.4 x 1.3 cm cyst in the interpolar region. There is no hydronephrosis or renal calculi. US/US renal BI IMPRESSION: 1.5 x 1.4 x 1.3 cm left renal cyst. Otherwise unremarkable renal ultrasound. Electronically signed by: Miguel Saenz MD 06/13/2025 08:18 AM EDT
--- OUTSIDE RECORDS SUMMARY | 2025-06-12 12:09 | XMS_ITS | Encounter Summary ---
Author Organization [facility] Address [address] [place] [address] Care Team Providers Care Inseam Trimmer Name Role Phone Vincent Garcia MD Primary Care Provider [phone] Encounter Details Date Type Department Care Team (Late st Contact Info) Description 08/16/2024 Lab Requisition [facility] - Main Lab [address] [facility] [place] [phone] Tere Ambriz NP [address] [address] Dysuria Social History Tobacco Use Types Packs/Day [...] cloacae complex(A) SARA 08/17/2024 10:29 AM EST [facility] Comment: This is an edited result. Previous organism was Gram negative bacilli on 08/16/2024 at 1032 EST. Culture, Bacterial ID and Sensitivity Corynebacterium species(A) SARA 08/17/2024 10:29 AM EST [facility] Comment: The organism value for [...] SARA <=20 ug/ml: Susceptible us Tere Ambriz ACCOUNT RESOLUTION SPECIALIST LAB MICROBIOLOGY - GENERA L ORDERABLES Final Result [facility] ([facility] [address] [place] [address], documented in this encounter Visit Diagnoses Diagnosis Dysuria documented in this encounter Care Teams Inseam Trimmer Relationship Specialty Start Date End Date Vincent Garcia MD [address] [place] [address] Dr Sweetie [place] PCP - General Internal Medicine 12/13/18 documented as of this encounter
--- OUTSIDE RECORDS SUMMARY | 2025-06-12 12:09 | XMS_ITS | Patient Health Record ---
[facility] Address [address] [place] [address] Care Team Providers Care Clinical Cytopathologist Name Role Phone Cary Rubi Primary Care Provider Polo Oneil Unavailable [phone] Allergies Allergen (clinical drug ingredient) Drug/Non Drug Allergy documented on EMR Reaction Allergy Type Onset Date Status anesthesia (uncoded) Unknown Allergy Active meperidine Demerol nausea Drug Allergy Active Seasonale Unknown Drug Allergy Active morphine Morphine nausea Drug Allergy Active Reason For Referral No Information Medications Medication SIG (Take, Route, Frequency, Duration) Notes Start Date End Date Status Fosfomycin Tromethamine 3 GM as directed Orally Not-Takin g Biotin Active Cefpodoxime Proxetil Not-Taking Azelastine HCl Activ e Keflex Not-Taking Flonase Active ASO Ankle/Foot Stablizing AFO As directed Wear Daily; Duration: as needed 11/29/2018 Not-Taking diazePAM 2 MG (Schedule IV Drug) T K 1 T PO QD PRN Oral; Duration: 30 PRN Active oxyBUTYnin Not-Takin g Omeprazole Active Bioflex Not-Taking Gabapentin Active Aspirin 81 MG 1 tablet Orally Once a day Not-Taking Pravastatin Sodium 40 MG 1 tablet Orally Once a day Active Trospium Chloride Ac tive Lisinopril 10 MG 1 tablet Orally Once a day Active Trimethoprim Active PriLOSEC daily Active Maia Active Immunizations Vaccine Route Administration Date Status [...] atherosclerosis of arteries of lower limbs (disorder) ([id number] ) Atherosclerosis of mohegan artery of both lower extremities, with unspecified presence of clinical manifestation (I70.203) Active confirmed Vital Signs Blood pressure diastolic 69 mm Hg 05/15/2025 Height 5ft 2in in 05/15/2025 Blood pressure systolic 127 mm Hg 05/15/2025 Weight 165 lbs 05/15/2025 BMI 30.18 kg/m2 05/15/2025 Procedures Procedure Date Ordered Date Performed Result Body Sit e 57115-IHNQUAL NAIL, 6 OR MORE 07/18/2024 N/A 36076-BBNS SKIN LESIONS, OVER 4 07/18/2024 N/A 00738-ALDUMZX NAIL, 6 OR MORE 11/14/2024 N/A 32710-FJHY SKIN LESIONS, OVER 4 11/14/2024 N/A 72222-FJWLBJA NAIL, 6 OR MORE 02/13/2025 N/A 90082-HHTL SKIN LESIONS, OVER 4 02/13/2025 N/A 27342-QZHQZSJ NAIL, 6 OR MORE 05/15/2025 N/A 70213-ABCX SKIN LESIONS, OVER 4 05/15/2025 N/A Encounters Encounter Location Date [facility] [address] 07/18/2024 Polo Banda Atherosclerosis of mohegan artery of both lower extremities, with unspecified presence of clinical manifestation I70.203 ; Tinea unguium B35.1 ; Pain in right toe(s) M79.674 and Pain in left toe(s) M79.[address] [facility] [address] 11/14/2024 Poloorin SotoSolo Atherosclerosis of mohegan artery of both lower extremities, with unspecified presence of clinical manifestation I70.203 ; Tinea unguium B35.1 ; Pain in right toe(s) M79.674 and Pain in left toe(s) M79.[address] [address] 02/13/2025 Polo Solo Atherosclerosis of mohegan artery of both lower extremities, with unspecified presence of clinical manifestation I70.203 ; Tinea unguium B35.1 ; Pain in right toe(s) M79.674 and Pain in left toe(s) M79.[address] [address] 05/15/2025 Polo Sotounier Atherosclerosis of mohegan artery of both lower extremities, with unspecified presence of clinical manifestation I70.203 ; Tinea unguium B35.1 ; Pain in right toe(s) M79.674 and Pain in left toe(s) M79.675 Assessments Encounter Date Diagnosis (ICD Code) Assessment Notes Treatment Notes Treatment Clinical Notes Section Notes 07/18/2024 Tinea unguium (ICD-10 - B35.1) 07/18/2024 Atherosclerosis of mohegan artery of both lower extremities, with unspecified presence of clinical manifestation (ICD-10 - I70.203) 11/14/2024 Tinea unguium (ICD-10 - B35.1) 11/14/2024 Atherosclerosis of mohegan artery of both lower extremities, with unspecified presence of clinical manifestation (ICD-10 - I70.203) 02/13/2025 Tinea unguium (ICD-10 - B35.1) 02/13/2025 Atherosclerosis of mohegan artery of both lower extremities, with unspecified presence of clinical manifestation (ICD-10 - I70.203) 05/15/2025 Tinea unguium (ICD-10 - B35.1) 05/15/2025 Atherosclerosis of mohegan artery of both lower extremities, with unspecified presence of clinical manifestation (ICD-10 - I70.203) 05/15/2025 Pain in right toe(s) (ICD-10 - M79.674) 11/14/2024 Pain in right toe(s) (ICD-10 - M79.674) 02/13/2025 Pain in right toe(s) (ICD-10 - M79.674) 07/18/2024 Pain in right toe(s) (ICD-10 - M79.674) 07/18/2024 Pain in left toe(s) (ICD-10 - M79.675) 05/15/2025 Pain in left toe(s) (ICD-10 - M79.675) 02/13/2025 Pain in left toe(s) (ICD-10 - M79.675) 11/14/2024 Pain in left toe(s) (ICD-10 - M79.675) Plan Of Treatment Pending Test Test Name Order Date 76844-XNUELHL NAIL, 6 OR MORE 04/05/2018 51721-WDQPGOE NAIL, 6 OR MORE 08/02/2018 55503-ACDQEQP NAIL, 6 OR MORE 11/29/2018 29706-HDALWIH NAIL, 6 OR MORE 05/09/2019 48514-JNVRGBX NAIL, 6 OR MORE 09/05/2019 68361-FBAJNKL NAIL, 6 OR MORE 01/14/2021 64117-HAZUPHX NAIL, 6 OR MORE 05/27/2021 51910-PQNMMPM NAIL, 6 OR MORE 10/07/2021 90909-QENIWSB NAIL, 6 OR MORE 01/06/2022 44997-MVMFFYA NAIL, 6 OR MORE 04/07/2022 39109-IKVCFKK NAIL, 6 OR MORE 07/07/2022 15705-KNRCDAD NAIL, 6 OR MORE 08/10/2017 80673-GKALVWC NAIL, 6 OR MORE 11/16/2017 64936-KZFOVLW NAIL, 6 OR MORE 10/06/2022 30801-AIQPLYO NAIL, 6 OR MORE 02/11/2023 12546-ZSWXHBP NAIL, 6 OR MORE 06/11/2023 98551-BWOWGOI NAIL, 6 OR MORE 09/24/2023 29678-WHDSRVJ NAIL, 6 OR MORE 03/28/2024 01609-RHSUMOO NAIL, 6 OR MORE 07/18/2024 63328-ZGKENKY NAIL, 6 OR MORE 11/14/2024 34258-LQTYVJB NAIL, 6 OR MORE 02/13/2025 19710-ZTSCJVK NAIL, 6 OR MORE 05/15/2025 92610-Uvwptujs Plate 02/11/2023 71156-Uzavjvtv Plate 06/11/2023 74605-Ztrdyppb Plate 11/16/2017 37249-LDXX SKIN LESIONS, OVER 4 07/18/20 24 17743-IYFP SKIN LESIONS, OVER 4 05/15/20 26457-ZGUB SKIN LESIONS, OVER 4 02/14/20 25 35196-SAKU SKIN LESIONS, OVER 4 11/15/19 25 54859-TBMM SKIN LESIONS, 2 TO 4 03/28/20 24 24032-VRLV SKIN LESIONS, 2 TO 4 06/11/20 23 46653-RNJB SKIN LESIONS, 2 TO 4 09/24/19 24 58504-TUFD SKIN LESIONS, 2 TO 4 02/12/20 23 05019-CWIU SKIN LESIONS, 2 TO 4 10/06/19 23 74637-CSLE SKIN LESIONS, 2 TO 4 07/07/20 80350 - Tenotomy, open flexor 12/02/2017 Next Appt Details Provider Name:Polo Banda , 09/04/2025 10:30:00 AM, [address] [facility], [facility] [address], [place], [address], Insurance Providers Payer Name Payer Address Payer Phone Subscriber Number Group Number Insured Name Patient Relationship to Insured Coverage Start Date Coverage End Date [employer] Medicare [id number] [address] [address] [place] [address] [id number] Jaskaran Daly Spouse - patient is the spouse of the insured Medical (General) History Medical History History ICD Code Arthritis Back,Hip,and Knee pain Gall bladder problems Reflux ( GERD) Measles Mumps Chicken pox Joint implants/screws Cholesterol Surgical History Surgery Date(Month/Year) knee surgery, left 1999 knee surgery, right 2001 bladder lifted surgery 2014 Hospitalization History Reason Date(Month/Year) [facility] [place]/01/17
--- OUTSIDE RECORDS SUMMARY | 2025-06-12 12:09 | XMS_ITS | Encounter Summary ---
Author Organization [facility] Address [address] [place] [address] Care Team Providers Care Cook Night Name Role Phone Vincent Garcia MD Primary Care Provider [phone] Encounter Details Date Type Department Care Team (Late st Contact Info) Description 07/06/2024 Lab Requisition [facility] - Main Lab [address] [facility] [place] [phone] Rickey Bearden MD [address] [place] [address] Dysuria Social History Tobacco Use Types Packs/Day [...] cloacae complex(A) SARA 07/07/2024 9:28 AM EST [facility] Comment: This is an edited result. [...] us Rickey Bearden MD LAB MICROBIOLOGY - [facility] AL ORDERABLES Final Result [facility] ([facility]) [facility] [address] [place] [address], documented in this encounter Visit Diagnoses Diagnosis Dysuria documented in this encounter Care Teams Cook Night Relationship Specialty Start Date End Date Vincent Garcia MD [address] [place] [address] Dr Sweetie [place] PCP - General Internal Medicine 12/13/18 documented as of this encounter
--- OUTSIDE RECORDS SUMMARY | 2025-06-12 12:09 | XMS_ITS | Clinical Summary ---
Author Organization [address] Address [address] [place] [address] Phone Care Team Providers Care Clarifier Name Role Phone Vincent Garcia MD Primary Care Provider [phone] Encounters Date Type Department Care Team Description 03/21/2025 Lab Requisition [facility] - Main Lab [address] [facility] [place] [place] [address] Chary Bee PA Dysuria from Last 3 Months Surgical History Surgery Date Site/Laterality Comments TOTAL KNEE ARTHROPLASTY PROCEDURE: CA ARTHRP KNE CONDYLE&PLATU MEDIAL&LAT COMPARTMENTS; COMMENT: both [...] Escherichia coli(A) SARA 03/23/2025 8:21 AM EDT [facility] Comment: This [...] MICROBIOLOGY - GENERAL ORDER SNOW Final Result [facility] ([facility]) [facility] [address] [place] [address], [place] [phone] from Last 3 Months Insurance [employer] MEDICARE Care Teams Clarifier Relationship Specialty Start Date End Date Vincent Garcia MD [address] [place] [address] Dr Sweetie [place] PCP - General Internal Medicine 12/13/18
--- OUTSIDE RECORDS SUMMARY | 2025-06-12 12:09 | XMS_ITS | Encounter Summary ---
Author Organization [facility] Address [address] [place] [address] Care Team Providers Care Cluster Bore Operator Name Role Phone Vincent Garcia MD Primary Care Provider [phone] Encounter Details Date Type Department Care Team (Late st Contact Info) Description 03/21/2025 Lab Requisition [facility] - Main Lab [address] [facility] [phone] Chary Bee, PA [address] [facility] [address] [place] [address] Dysuria Social History Tobacco Use Types Packs/Day [...] Escherichia coli(A) SARA 03/23/2025 8:21 AM EDT [facility] Comment: This is an edited result. [...] MICROBIOLOGY - GENERAL ORDER SNOW Final Result [facility] ([facility]) [facility] [address] [place] [address], documented in this encounter Visit Diagnoses Diagnosis Dysuria documented in this encounter Care Teams Cluster Bore Operator Relationship Specialty Start Date End Date Vincent Garcia MD [address] [place] [address] Dr Sweetie [place] PCP - General Internal Medicine 12/13/18 documented as of this encounter
--- OUTSIDE RECORDS SUMMARY | 2025-06-12 12:09 | XMS_ITS | Encounter Summary ---
Author Organization [facility] Address [address] [place] [address] Care Team Providers Care Base Manager Name Role Phone Vincent Garcia MD Primary Care Provider [phone] Encounter Details Date Type Department Care Team (Late st Contact Info) Description 09/02/2024 Lab Requisition [facility] - Main Lab [address] [place] [id number] Rashida Velez MD [address] [address] Dysuria Social History Tobacco Use Types Packs/Day [...] cloacae complex(A) SARA 09/03/2024 8:28 AM EST [facility]) [facility] Comment: [...] MICROBIOLOGY - G ENERAL ORDERABLES Final Result [facility] ([facility]) [facility] [address] [place] [address], documented in this encounter Visit Diagnoses Diagnosis Dysuria documented in this encounter Care Teams Base Manager Relationship Specialty Start Date End Date Vincent Garcia MD [address] [place] [address] Dr Sweetie [place] PCP - General Internal Medicine 12/13/18 documented as of this encounter
== END 2025-06-12 12:07 | disposition home or self-care (01) ==
LOC: HO.US 12:06
PROVIDERS: PCP Internal Medicine; Visit Provider Physician Assistant
DX: N28.1 Cyst of kidney, acquired (principal)
CPT/HCPCS: 76775

== ENCOUNTER → 2025-06-12 12:08 | Outpatient (BNV) | payer MEDICARE, SELFPAY | PROVIDERS: PCP Internal Medicine; Visit Provider Radiology Diagnostic Radiology | DX: N28.1 Cyst of kidney, acquired (principal) | CPT/HCPCS: 76775 ==